=== PATIENT | male | born 1960 | race Caucasian/White ===

== ENCOUNTER 2020-03-01 11:01 | Outpatient (CLI) | payer OTHER, SELFPAY ==
--- NOTE | 2020-03-01 11:15 | XR_ITS ---
WS: [id number] LUMBAR SPINE: 3 VIEWS TECHNIQUE: AP, lateral and L5-S1 spot. HISTORY: Disability DETERMINATION COMPARISON: No similar studies. Very slight straightening of the normal lumbar lordosis. 2 mm retrolisthesis of L3. Moderate disc spa ce narrowing at L3-4 with moderate size osteophytes extending anterior. No fractures. Mild facet join t arthritis at L4-5 and L5-S1. There is very slight LEFT convex curvature of the lumbar spine. Mild narrowing of the SI joints bilaterally. Prior cholecystectomy. A few scattered calcifications in the aorta. XR/XR lumbar spine 2-3V* [id number] IMPRESSION: 1. Moderate degenerative disc disease most significant at L3-4. Otherwise mult ilevel mild to moderate spondylosis. 2. Mild LEFT convex curvature lower lumbar spine.
--- NOTE | 2020-03-01 11:15 | XR_ITS ---
WS: [id number] CERVICAL SPINE 3 VIEWS HISTORY: DISABILITY DETERMINATION COMPARISON: None available. Mild straightening of the normal cervical lordosis. Moderate degenerative disc space narrowing and en dplate osteophytes at C5-6. Small to moderate anterior osteophytes. No fractures. Lateral masses of C 1 and C2 are aligned. Disc spaces are slightly narrowed throughout the cervical spine. Soft tissues are normal. XR/XR cervical spine 3V* [id number] IMPRESSION: Mild to moderate multilevel cervical spondylosis. Most significant at C5-6.
== END 2020-03-01 11:02 | disposition home or self-care (01) ==
LOC: RAD 11:10
PROVIDERS: PCP Internal Medicine; Visit Provider Dermatology
DX: Z02.71 Encounter for disability determination (principal); M51.36 Other intervertebral disc degeneration, lumbar region; M47.816 Spondylosis without myelopathy or radiculopathy, lumbar region; M47.812 Spondylosis without myelopathy or radiculopathy, cervical region
CPT/HCPCS: 72040; 72100

== ENCOUNTER 2020-06-23 15:30 | Outpatient (CLI) | payer MEDICAID, SELFPAY ==
--- NOTE | 2020-06-23 15:32 | CT_ITS ---
WS: [id number] CT of the lumbar spine, additional two-dimensional coronal and sagittal imaging was obtained. 020 Clinical Data: BACK PAIN WITH RADICULOPATHY Comparison: MRI lumbar spine, 08/07/2015. DLP: 2000.[address] scans at [facility] use at least one of these dose optimization techniques: automat ed exposure control; mA and/or kV adjustment per patient size (includes targeted exams where dose is matched to clinical indication); or iterative reconstruction. Findings: Degenerative disc disease is present at T12-L1, L1-L2, L2-L3 and L3-L4. There is anterior o steoarthritic spurring at all these levels. No compression fractures are seen. The transverse process es and SI joints are not remarkable. There is a minimal levoscoliosis of the lower lumbar spine. T12-L1: No canal stenosis is present but there is facet joint arthritis. L1-L2: There is a minimal central disc bulge with facet joint arthritis causing canal and foraminal s tenosis. L2-L3: There is a central disc bulge with facet joint arthritis causing canal and foraminal stenosis. L3-L4: There is central disc bulge with facet joint arthritis causing canal and foraminal stenosis. L4-L5: There is a central disc bulge with facet joint arthritis causing canal and foraminal stenosis. L5-S1: There is no disc bulge or central canal stenosis but there is facet joint arthritis causing fo raminal stenosis. CT/CT lumbar spine wo con* [id number] Impression: 1. Multilevel degenerative disc disease and osteoarthritis. 2. Multilevel disc bulging and facet joint arthritis causing canal and foramina l stenosis.
== END 2020-06-23 15:31 | disposition home or self-care (01) ==
PROVIDERS: PCP Family Medicine; Visit Provider Family Medicine
DX: M54.16 Radiculopathy, lumbar region (principal); M51.36 Other intervertebral disc degeneration, lumbar region; M47.816 Spondylosis without myelopathy or radiculopathy, lumbar region; M51.26 Other intervertebral disc displacement, lumbar region; M48.061 Spinal stenosis, lumbar region without neurogenic claudication
CPT/HCPCS: 72131

== ENCOUNTER 2020-12-21 14:21 | Outpatient (CLI) | payer MEDICAID, SELFPAY | END 2020-12-21 14:22 | disposition home or self-care (01) | LOC: WOUND 14:21 | PROVIDERS: PCP Family Medicine; Visit Provider Thoracic Surgery (Cardiothoracic Vascular Surgery) | DX: E11.621 Type 2 diabetes mellitus with foot ulcer (principal); L97.522 Non-pressure chronic ulcer of other part of left foot with fat layer exposed | CPT/HCPCS: 11042; 87070; 87077; 87176; 87186; 87205; G0463 ==

== ENCOUNTER 2020-12-28 15:27 | Outpatient (CLI) | payer MEDICAID, SELFPAY | END 2020-12-28 15:28 | disposition home or self-care (01) | LOC: WOUND 15:30 | PROVIDERS: PCP Family Medicine; Visit Provider Thoracic Surgery (Cardiothoracic Vascular Surgery) | DX: E11.621 Type 2 diabetes mellitus with foot ulcer (principal); L97.522 Non-pressure chronic ulcer of other part of left foot with fat layer exposed | CPT/HCPCS: 11042 ==

== ENCOUNTER 2021-01-15 15:35 | Outpatient (CLI) | payer MEDICAID, SELFPAY | END 2021-01-15 15:36 | disposition home or self-care (01) | LOC: WOUND 15:35 | PROVIDERS: PCP Family Medicine; Visit Provider Thoracic Surgery (Cardiothoracic Vascular Surgery) | DX: E11.621 Type 2 diabetes mellitus with foot ulcer (principal); L97.522 Non-pressure chronic ulcer of other part of left foot with fat layer exposed | CPT/HCPCS: 11042 ==

== ENCOUNTER 2021-01-22 14:53 | Outpatient (CLI) | payer MEDICAID, SELFPAY | END 2021-01-22 14:54 | disposition home or self-care (01) | LOC: WOUND 14:53 | PROVIDERS: PCP Family Medicine; Visit Provider Thoracic Surgery (Cardiothoracic Vascular Surgery) | DX: E11.621 Type 2 diabetes mellitus with foot ulcer (principal); L97.522 Non-pressure chronic ulcer of other part of left foot with fat layer exposed | CPT/HCPCS: 11042 ==

== ENCOUNTER 2021-02-05 14:53 | Outpatient (CLI) | payer MEDICAID, SELFPAY | END 2021-02-05 14:54 | disposition home or self-care (01) | LOC: WOUND 14:54 | PROVIDERS: PCP Family Medicine; Visit Provider Nurse Practitioner Family | DX: E11.621 Type 2 diabetes mellitus with foot ulcer (principal); L97.522 Non-pressure chronic ulcer of other part of left foot with fat layer exposed | CPT/HCPCS: 11042 ==

== ENCOUNTER 2021-02-19 10:23 | Outpatient (CLI) | payer MEDICAID, SELFPAY | END 2021-02-19 10:24 | disposition home or self-care (01) | LOC: WOUND 10:24 | PROVIDERS: PCP Family Medicine; Visit Provider Thoracic Surgery (Cardiothoracic Vascular Surgery) | DX: E11.621 Type 2 diabetes mellitus with foot ulcer (principal); L97.522 Non-pressure chronic ulcer of other part of left foot with fat layer exposed | CPT/HCPCS: 11042 ==

== ENCOUNTER 2021-02-26 14:07 | Outpatient (CLI) | payer MEDICAID, SELFPAY | END 2021-02-26 14:08 | disposition home or self-care (01) | LOC: WOUND 14:07 | PROVIDERS: PCP Family Medicine; Visit Provider Thoracic Surgery (Cardiothoracic Vascular Surgery) | DX: E11.621 Type 2 diabetes mellitus with foot ulcer (principal); L97.522 Non-pressure chronic ulcer of other part of left foot with fat layer exposed | CPT/HCPCS: 11042 ==

== ENCOUNTER 2021-02-26 14:37 | Outpatient (CLI) | payer MEDICAID, SELFPAY ==
--- NOTE | 2021-02-26 15:01 | XR_ITS ---
WS: [id number] FOOT LEFT TECHNIQUE: 3 views of the left foot CLINICAL INFORMATION: TYPE 2 DM WITH FOOT ULCER COMPARISON: None. FINDINGS: Diffuse soft tissue edema. Osteopenia. Dorsal calcaneal spurring. Pes planus. Soft tissue edema lower leg and hindfoot. Soft tissue edema worse involving the dorsal midfoot. No evidence of bony destruct ion to indicate osteomyelitis. Mild degenerative arthritis. XR/XR foot LT min 3V* [id number] IMPRESSION: 1. Diffuse soft tissue edema worse involving the dorsal midfoot. 2. Demineralization. No evidence of bony destruction to indicate osteomyelitis . 3. No acute fractures. 4. Mild degenerative arthritis. 5. Dorsal calcaneal spurring.
== END 2021-02-26 14:38 | disposition home or self-care (01) ==
LOC: WPI 14:54
PROVIDERS: PCP Family Medicine; Visit Provider Thoracic Surgery (Cardiothoracic Vascular Surgery)
DX: E11.621 Type 2 diabetes mellitus with foot ulcer (principal); R60.0 Localized edema; M81.0 Age-related osteoporosis without current pathological fracture; M19.072 Primary osteoarthritis, left ankle and foot; M77.32 Calcaneal spur, left foot
CPT/HCPCS: 73630

== ENCOUNTER 2021-02-27 15:02 | Inpatient (IN) | payer MEDICAID, SELFPAY ==
[2021-02-27] VITALS (9 sets, daily range): BP systolic 102–187; BP diastolic 59–93; PULSE 96–125; RESP 15–24; TEMP 37.7; O2SAT 93–97; BMI 39.9
--- NOTE | 2021-02-27 15:53 | XRR_ITS ---
PROCEDURE INFORMATION: Exam: XR Chest Exam date and time: 02/27/2021 3:53 PM Age: 60 years old Clinical indication: Shortness of breath and other: Reduced breath sounds; Patient HX: Lle pain/swelling, SOB, weakness x1 day TECHNIQUE: Imaging protocol: XR of the chest. Views: 1 view. COMPARISON: CR XR cervical spine 3V* [id number] 03/01/2020 11:27 AM FINDINGS: Lungs: Pulmonary vascular congestion and cardiomegaly consistent with mild congestive heart failure. Pleural spaces: Unremarkable. No pleural effusion. No pneumothorax. Heart/Mediastinum: See Lungs finding. Bones/joints: Unremarkable. XR/XR chest 1V portable [id number] IMPRESSION: Pulmonary vascular congestion and cardiomegaly consistent with mild congestive heart failure.
--- NOTE | 2021-02-27 15:54 | ECG_ITS ---
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 Measurements Intervals [place] Rate: 118 P: 18 [place]: 92 QRS: -35 QRSD: 101 T: 71 QT: 349 QTc: 491 Interpretive Statements SINUS TACHYCARDIA WITH SHORT [place] INTERVAL MARKED LEFT AXIS DEVIATION [QRS AXIS < -30] PATTERN CONSISTENT WITH PULMONARY DISEASE MINIMAL ST DEPRESSION [0.025+ mV ST DEPRESSION] No previous ECG available for comparison Electronically Signed On 02-27-2021 16:35:39 CDT by Corinna Castro M.D. [id number]
--- NOTE | 2021-02-27 15:58 | USCV_ITS ---
Mark Katz Age: 60 Gender: M : 1960 Exam Date: 02/27/2021 16:25 Ordering Phys: Bala Alan MD Technologist: ROSENDO [place] [facility] [place]: edema and pain PROCEDURES: Venous duplex imaging was performed in bilateral lower extremities. The following venous structures were evaluated: common femoral vein, profunda vein, proximal portion of the greater saphenous vein, superficial femoral vein, and the popliteal vein. Serial compression, augmentation maneuvers, and spectral Doppler flow evaluation were performed. FINDINGS: Very limited study. Patient is bandaged from the knee down on the right lower extremity. The left leg was unable to be completed due to patient pain. No thrombus visualized today in the veins imaged. No right DVT. CONCLUSIONS Limited evaluation of the lower extremity due to pain and bandages. No DVT on the right. Limited to CFV, profunda and proximal SFV on the left with no DVT. Dr. Camryn Lemus DO (Electronically Signed) Final Date: 27 February 2021 16:54 S
[2021-02-27] MEDS: albuterol 8 gm MDI 2 PUFF INHALATION (16:16)
[2021-02-27 16:25] LABS: Basophils # 0.1 10^3/uL (0.0-0.1); Basophils % 0.3 %; Eosinophils # 0.1 10^3/uL (0.0-0.8); Eosinophils % 0.3 %; Hemoglobin 14.8 g/dL (11.7-16.6); Lymphocytes # 0.7 10^3/uL (0.8-4.8); Lymphocytes % 2.8 %; Mean Corpuscular HGB Conc 31.5 g/dL (30.0-36.0); Mean Corpuscular Hemoglobin 30.6 pg (28.0-34.0); Mean Corpuscular Volume 97.1 fL (80-94); Mean Platelet Volume 11.8 fL (7.4-10.4); Monocytes # 1.2 10^3/uL (0.2-0.9); Monocytes % 4.7 %; Neutrophils # 23.57 10^3/uL (1.8-7.7); Neutrophils % 90.9 %; Nucleated Red Blood Cells % 0 %; Platelet Count 160 10^3/cmm (130-400); Red Blood Count 4.84 10^6/uL (4.1-5.3); Red Cell Distribution Width 12.3 % (12.1-15.1); White Blood Count 25.9 10^3/uL (4.0-10.0)
[2021-02-27 16:32] LABS: ABG PCO2 37.1 mmHg (35-45); ABG PH Result 7.44 (7.35-7.45); Arterial Blood Gas Hematocrit 48.8 % (42-52); Base Excess ABG 1.3 mmol/L (-2.0-2.0); Blood Gas Allen Test Pos; Blood Gas Operator Identificat GD; Blood Gas Sample Site Radial, left; Blood Gas Sample Type Arterial; HCO3 ABG 25.2 mmol/L (22-26); HGB O2 Sat 89.9 % (95-100); Methemoglobin 0.8 % (0.4-1.5); PO2 ABG 64.6 mmHg (80.0-100.0); Total Hemoglobin 15.9 g/dL (14-18)
[2021-02-27] MEDS: acetaminophen 325 mg Tablet 650 MG PO (16:54)
[2021-02-27] MEDS: morphine 4 mg/mL SDV 1 mL 2 MG IVP (16:54)
[2021-02-27] MEDS: sodium chloride 0.9% 1,000 ML 999 ML IV (16:55)
[2021-02-27 16:58] LABS: Lactic Sepsis W/Reflex 1.2 mmol/L (0.5-2.2)
[2021-02-27 17:10] LABS: Glucose Point of Care 195 mg/dL (70-110)
--- NOTE | 2021-02-27 17:37 | CTR_ITS ---
PROCEDURE INFORMATION: Exam: CT Head Without Contrast Exam date and time: 02/27/2021 5:37 PM Age: 60 years old Clinical indication: Altered mental status/memory loss TECHNIQUE: Imaging protocol: Computed tomography of the head without contrast. Radiation optimization: All CT scans at this facility use at least one of these dose optimization techniques: automated exposure control; mA and/or kV adjustment per patient size (includes targeted exams where dose is matched to clinical indication); or iterative reconstruction. COMPARISON: CR XR cervical spine 3V* [id number] 03/01/2020 11:27 AM RADIATION DOSE METRICS: Total DLP (mGy-cm): 982.04 FINDINGS: Brain: Mild diffuse white matter disease likely reflecting chronic microvascular ischemic changes. Punctate bilateral basal ganglia benign calcifications. Cerebral ventricles: No ventriculomegaly. Paranasal sinuses: Visualized sinuses are unremarkable. No fluid levels. Mastoid air cells: Visualized mastoid air cells are well aerated. Bones/joints: Unremarkable. No acute fracture. Soft tissues: Unremarkable. CT/CT head wo con* [id number] IMPRESSION: Negative for intracranial hemorrhage or mass effect. Radiation Dose CTDIVOL = (mGy): DLP = 982.04 (mGy-cm)
--- NOTE | 2021-02-27 17:37 | CTR_ITS ---
PROCEDURE INFORMATION: Exam: CTA Chest With Contrast Exam date and time: 02/27/2021 5:37 PM Age: 60 years old Clinical indication: Nausea; Abdominal pain; Generalized; Shortness of breath; Prior surgery; Surgery type: Gb; Additional info: Dyspnea. Pe? , Abd pain TECHNIQUE: Imaging protocol: Computed tomographic angiography of the chest with contrast. 3D rendering (Not supervised by radiologist): MIP and/or 3D reconstructed images were created by the technologist. Radiation optimization: All CT scans at this facility use at least one of these dose optimization techniques: automated exposure control; mA and/or kV adjustment per patient size (includes targeted exams where dose is matched to clinical indication); or iterative reconstruction. Contrast material: OMNI 350; Contrast volume: 95 ml; Contrast route: INTRAVENOUS (IV); COMPARISON: CR XR chest 1V portable [id number] 02/27/2021 3:56 PM RADIATION DOSE METRICS: Total DLP (mGy-cm): 2237.51 FINDINGS: Pulmonary arteries: Normal. No pulmonary emboli. Aorta: Unremarkable. No aortic aneurysm. No aortic dissection. Lungs: Unremarkable. No consolidation. No masses. Pleural spaces: Unremarkable. No pneumothorax. No pleural effusion. Heart: Coronary artery atherosclerotic calcifications. Lymph nodes: Unremarkable. No enlarged lymph nodes. Bones/joints: Unremarkable. No acute fracture. Soft tissues: Unremarkable. IMPRESSION: 1. Negative for pulmonary embolus or airspace infiltrate 2. Coronary artery atherosclerotic calcifications. PROCEDURE INFORMATION: Exam: CT Abdomen And Pelvis With Contrast Exam date and time: 02/27/2021 5:37 PM Age: 60 years old Clinical indication: Nausea; Abdominal pain; Generalized; Shortness of breath; Prior surgery; Surgery type: Gb; Additional info: Dyspnea. Pe? , Abd pain TECHNIQUE: Imaging protocol: Computed tomography of the abdomen and pelvis with contrast. Radiation optimization: All CT scans at this facility use at least one of these dose optimization techniques: automated exposure control; mA and/or kV adjustment per patient size (includes targeted exams where dose is matched to clinical indication); or iterative reconstruction. Contrast material: OMNI 350; Contrast volume: 95 ml; Contrast route: INTRAVENOUS (IV); COMPARISON: CR XR chest 1V portable [id number] 02/27/2021 3:56 PM RADIATION DOSE METRICS: Total DLP (mGy-cm): 2237.51 FINDINGS: Liver: Normal. No mass. Gallbladder and bile ducts: Cholecystectomy. Pancreas: Normal. No ductal dilation. Spleen: Normal. No splenomegaly. Adrenal glands: Normal. No mass. Kidneys and ureters: Left kidney cysts, negative for follow-up advised. Stomach and bowel: Constipation. Appendix: No evidence of appendicitis. Intraperitoneal space: Unremarkable. No free air. No significant fluid collection. Vasculature: Unremarkable. No abdominal aortic aneurysm. Lymph nodes: Unremarkable. No enlarged lymph nodes. Urinary bladder: Medrano catheter in the urinary bladder. Reproductive: Unremarkable as visualized. Bones/joints: Unremarkable. No acute fracture. Soft tissues: Subcutaneous edema over the abdomen and pelvis. CT/CT angio chest w abd pel w con IMPRESSION: 1. Negative for acute inflammatory process in the abdomen or pelvis 2. Cholecystectomy. 3. Left kidney cysts, negative for follow-up advised. 4. Subcutaneous edema over the abdomen and pelvis. 5. Medrano catheter in the urinary bladder. 6. Constipation. COMMENTS: Consistent with the [employer]'s Incidental Findings Committee white paper (J Am Johanny Radiol 2018): Any incidental renal lesion less than 1 cm or classified as too small to characterize, or any incidental cystic renal lesion characterized as simple-appearing, is likely benign. No follow-up imaging is recommended for these lesions per consensus recommendations based on imaging criteria. Radiation Dose CTDIVOL = (mGy): DLP = 2237.51~2237.51 (mGy-cm)
[2021-02-27] MEDS: vancomycin 1,500 MG/300 ML PIGGYBACK 200 MG IV (17:42)
[2021-02-27 17:43] LABS: D Dimer 1.52 ug/mIFEU (0-0.59)
--- NOTE | 2021-02-27 17:54 | ECG_ITS ---
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 Measurements Intervals [place] Rate: 110 P: 65 [place]: 140 QRS: -34 QRSD: 100 T: 74 QT: 362 QTc: 490 Interpretive Statements SINUS TACHYCARDIA MARKED LEFT AXIS DEVIATION [QRS AXIS < -30] PATTERN CONSISTENT WITH PULMONARY DISEASE NONSPECIFIC ST & T-WAVE ABNORMALITY Compared to ECG 02/27/2021 16:09:09 T-wave abnormality now present Short CO interval no longer present ST (T wave) deviation no longer present Electronically Signed On 02-28-2021 18:37:35 CDT by Deion Chin M.D. [id number]
[2021-02-27 17:59] LABS: SARS Covid-2 Antigen Negative (Negative)
[2021-02-27] MEDS: FUROsemide 10 mg/mL SDV 4mL 40 MG IVP (18:30)
[2021-02-27 18:32] LABS: Alanine Aminotransferase 23 U/L (0-41); Albumin Level 2.4 g/dL (3.5-5.2); Alkaline Phosphatase 173 IU/L (40-130); Anion Gap 14.8 (5-19); Aspartate Amino Transferase 23 U/L (0-40); Blood Urea Nitrogen 10 mg/dL (8-23); Calcium 7.6 mg/dL (8.5-10.5); Carbon Dioxide 22 mmol/L (22-29); Chloride 104 mmol/L (98-107); Creatine Phosphokinase 196 U/L (39-308); Globulin 3.3 g/dL (1.3-4.6); Glomerular Filtration Rate 75.7 mL/min (90-130); Glucose 215 mg/dL (65-115); Osmolality Calculated 290 mOsm/kg (285-295); Potassium 3.8 mmol/L (3.5-5.1); Sodium 137 mmol/L (136-145); Thyroid Stimulating Hormone 0.83 uIU/mL (0.27-4.20); Total Bilirubin 0.6 mg/dL (0.15-1.2); Total Protein 5.7 g/dL (6.6-8.7)
[2021-02-27 18:52] LABS: Troponin(5th) Baseline 82 ng/L (0-15)
[2021-02-27 18:59] LABS: NT Pro B Type Natriuretic Pept 190 pg/mL (0-125)
[2021-02-27] MEDS: piperacillin-tazobactam 3.375 GM in sodium chloride 0.9% (plus) 100 ML IV (19:30)
--- NOTE | 2021-02-27 19:31 | CTR_ITS ---
PROCEDURE INFORMATION: Exam: CT Right Lower Extremity With Contrast Exam date and time: 02/27/2021 7:31 PM Age: 60 years old Clinical indication: Pain; Lower leg and thigh; Bilateral; Additional info: Groin and thigh pain TECHNIQUE: Imaging protocol: CT of the Right lower extremity with intravenous contrast was performed. Radiation optimization: All CT scans at this facility use at least one of these dose optimization techniques: automated exposure control; mA and/or kV adjustment per patient size (includes targeted exams where dose is matched to clinical indication); or iterative reconstruction. Contrast material: OMNI 300; Contrast volume: 95 ml; Contrast route: INTRAVENOUS (IV); COMPARISON: CT angio chest w abd pel w con 02/27/2021 8:05 PM RADIATION DOSE METRICS: Total DLP (mGy-cm): 2236.01 FINDINGS: Tubes, catheters and devices: Medrano catheter within bladder lumen. Bones/joints: Symmetric moderate severity hip joint osteoarthritis changes. Symmetric moderate severity bilateral knee joint osteoarthritis changes. No lytic bone lesions. No extremity fractures. Soft tissues: Diffuse subcutaneous soft tissue edema changes throughout both legs. Edema is more extensive in left leg than right leg. Intramuscular soft tissue planes are unremarkable. There is diffuse skin thickening of the medial thigh areas. No peripherally enhancing loculated drainable soft tissue fluid collection identified. Vasculature: Lower extremity vascular structures are patent and unremarkable with no significant finding. Lymph nodes: Left groin lymphadenopathy is present. A prominent enlarged lymph node is seen with slightly indistinct margins with overall inflammatory appearance. The node measures about 1.8 cm short axis by 3.5 cm long axis. Urinary bladder: Bladder decompressed. Thick-walled bladder appearance. Reproductive: Small volume scrotal hydroceles. CT/CT angio [facility] [id number] IMPRESSION: 1. Substantial diffuse subcutaneous soft tissue edema changes throughout both legs. 2. Nonspecific reactive left inguinal lymphadenopathy. Radiation Dose CTDIVOL = (mGy): DLP = 2236.01 (mGy-cm)
[2021-02-27 19:49] LABS: Add Urine Microscopic? YES; Bilirubin Urine Neg (Negative); Blood Urine 3+ (Negative); Glucose Urine UA 2+ (Normal); Ketones Urine Negative (Negative); Leukocyte Esterase Urine Negative (Negative); Nitrate Urine Negative (Negative); Protein Urine 3+ (Negative); Specific Gravity, Urine 1.005 (1.005-1.030); Urine Appearance Clear (CLEAR); Urine Color Yellow (Yellow); Urobilinogen Urine 1 mg/dL (Negative); pH Urine 7 (5-7)
[2021-02-27 19:50] LABS: Add Urine Culture? Yes; Bacteria Urine 2+ /hpf; Squamous Epithelial Cell Urine 0-4 /hpf (0-5); WBC Urine 0-4 /hpf (0-5)
[2021-02-27] MEDS: iohexol 350 mg/mL 100 mL Btl IV (20:06)
[2021-02-27] MEDS: iohexol 300 mg/mL 100 mL Btl IV (20:09)
[2021-02-27 20:27] LABS: Troponin 5 2HR 79.14 ng/L (0-15)
[2021-02-27 20:29] LABS: Troponin 5 2HR Delta -2.86 ABS# (0-10)
--- NOTE | 2021-02-27 21:05 | PM.HP ---
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 Patients at bedside provided history. Patient was confused at the time of my eval. Per she related his confusion to opiod withdrawal as he had ran out of his oxycodone 1 day prior. During this time he started to complain of left knee pain. Denied any fall or recent trauma. At baseline he is able to walk short distances with assist however he was not able to do so. He does have a chronic diabetic foot ulcer on left foot which was evaluvated by wound care on 02/26. A left foot x-ray was done which showed diffuse soft tissue edema worse involving the dorsal midfoot without any evidence of acute fracture or bony destruction indicate osteomyelitis. He was not started on antibiotics. Wound has been draining yellow pus like discharge however very minimal per . Denied fever, or chills. Noted nausea however no emesis. Denied chest pain however noted mild respiratory distress from baseline. Does not wear oxygen at home. Noted increasing lower extremity edema however states this has been progressively increasing for over 2 years. Laboratory workup upon arrival showed a WBC of 25.9, hemoglobin of 14.8, hematocrit 47.0 and a platelet count of 160. D-dimer was elevated at 1.52. Arterial blood gases showed a pH of 7.44, pCO2 of 37.1, PO2 of 64.6 and a bicarb of 25.2. Sodium 137, potassium 3.8, chloride 104, bicarb 22, BUN 10 and creatinine of 1.0. Lactic acid of 1.2. Troponin T baseline of 82, 79 at 120 minutes, proBNP of 190. Urinalysis showed 3+ blood, negative nitrites or leukocyte esterase. COVID-19 antigen was negative. PCR was sent however pending. Chest x-ray showed pulmonary vascular congestion and cardiomegaly consistent with mild congestive heart failure, right lower extremity venous duplex was attempted however limited due to lower extremity pain. CT chest abdomen pelvis noted coronary artery atherosclerotic calcifications without any evidence of pulmonary embolism, infiltrates or consolidation. Abdominal portion showed constipation without any additional abnormality. Head CT did not show any evidence of acute intracranial abnormality.Left lower extremity CTA showed edmea as well as reactive ingunal lymphdenopathy. Initial vitals showed a temp of 100.0, HR of 114, RR 22, and BP of 167/93. O2 sat of 96% on RA. In ER patient was given 1L NS bolus x 2, Lasix 40 mg IV x1, Zosyn 3.375g IV x1, Vancomycin 1500 mg IV x 1, Morphine 2 mg IV x 1. Review of Systems General: Reports: ROS unobtainable due to medical condition and ROS unobtainable due to mental status Medications/Allergies Home Medications Medication Instructions Recorded Confirmed Last Taken Type dextroamphetamine-amphetamine 10 mg PO BID 02/27/21 02/27/21 02/27/21 History insulin NPH and regular human See Rx Instructions .ROUTE .COMPLEX 02/27/21 02/27/21 02/27/21 History insulin regular human See Rx Instructions .ROUTE .COMPLEX 02/27/21 02/27/21 02/27/21 History omega 2-ows-mja-fish oil [Fish Oil] 1 cap PO DAILY 02/27/21 02/27/21 02/27/21 History oxycodone 30 - 60 mg PO Q4H PRN 02/27/21 02/27/21 02/27/21 History Allergies Allergy/AdvReac Type Severity Reaction Status Date / Time Compazine Allergy Unknown Uncoded 12/29/20 13:52 PFSH Acute PFSH: Medical History (Updated 02/28/21 @ 05:52 by Simon Doe MD) Anasarca Ankylosing spondylitis Anxiety and depression Chronic heart failure with normal ejection fraction Chronic ulcer of left foot due to diabetes mellitus COPD (chronic obstructive pulmonary disease) Diabetes mellitus Hypertension No pertinent family history Noncompliance with CPAP treatment Obstructive sleep apnea Opioid dependence Tobacco abuse Surgical History (Updated 02/27/21 @ 23:45 by Simon Doe MD) No pertinent past surgical history Social History (Updated 02/27/21 @ 23:45 by Simon Doe MD) Smoking and tobacco status: current every day smoker cigarettes Packs smoked per day: 2 Alcohol intake: never Substance/Drug Use: never Vitals/I&O/Wt Last Vital Signs Temp 100 F H 02/27/21 15:10 Pulse 96 02/27/21 19:30 Resp 22 H 02/27/21 19:30 BP 152/59 02/27/21 19:30 Pulse Ox 95 02/27/21 19:30 02/27/21 02/27/21 02/27/21 06:59 14:59 22:59 Intake Total 1132.5 / 1132.5 Balance 1132.5 / 1132.5 Weight last 48 hrs Weight 115.666 kg Physical Exam Narrative: EXAM NARRATIVE: General : Chronically ill appearing, confused, HEENT: Grossly unremarkable CVS; RRR no murmurs Chest : Decreased at bases, fine crackles Abd - Ascietes, non-tender Ext : Bilateral LE edema 4+, RLE elise wrap, Left foot ulcer no surrounding erythema Urinary Catheter Management^: Medrano: Cath Placed During This Visit: yes Urinary Catheter Date of Insertion: 02/27/21 Urinary Catheter Time of Insertion: 18:48 Data : 02/28/21 04:30 02/28/21 04:30 Micro: Microbiology 02/27/21 16:47 Blood Culture - Preliminary Blood SPECIMEN COLLECTED 02/27/21 16:13 Blood Culture - Preliminary Blood SPECIMEN COLLECTED A&P Assessment and plan (1) Sepsis due to undetermined organism: Temperature of a 100.0, heart rate 114, WBC 23 Source unclear, possibly due to infected diabetic foot ulcer versus UTI Continue vancomycin and Zosyn pharmacy to dose Follow-up on blood cultures x2 Procalcitonin a.m. Deescalate antibiotics based on culture and clinical course Repeat CBC in a.m. Status: Acute (2) Altered mental state: Possibly dueTo opioid in combination with Infectious Nursing bedside swallow Aspiration and fall precautions Status: Acute (3) Acute on chronic heart failure with normal ejection fraction: Echocardiogram last noted in 2006 EF preserved with left atrial dilation Repeat echocardiogram now Status post Lasix 40 mg IV x1 by ER Consider additional Lasix However hold due to poor p.o. intake and risk of renal dysfunction Medrano catheter placed Status: Acute (4) COPD (chronic obstructive pulmonary disease): Bronchodilator therapy Supplemental oxygen as needed Status: Acute (5) Hypertension: Verify home meds Status: Acute (6) Ankylosing spondylitis: HoldingNarcotics due to change in mental status Cautiously reintroduced at lower dose Likely contributing to his AMS. Physical therapy consultation Status: Acute (7) Diabetes mellitus: Sliding scale insulin Status: Acute (8) Chronic ulcer of left foot due to diabetes mellitus: May consider Consultation with wound care Culture wound Consider KAM Pressure offloading Status: Acute (9) Tobacco abuse: Two pack per day smoker Nicotine p.r.n. Status: Acute Attestations Medical Necessity Statement*: Anticipate over 2 midnights stay in hospital for evaluation and treatment of sepsis, change in mental status, or extremity pain. Time Spent in Patient Care: Greater than 35 minutes (>than 50% of time spent in counselling and/or direct pt care on unit). Coding Level of Care Code Acute Site Inspector for Koby Amezcua Diagnoses Sepsis due to undetermined organism A41.9 Altered mental state R41.82 Acute on chronic heart failure with normal ejection fraction I50.33 COPD (chronic obstructive pulmonary disease) J44.9 Hypertension I10 Ankylosing spondylitis M45.9 Diabetes mellitus E11.9 Chronic ulcer of left foot due to diabetes mellitus E11.621; L97.529 Tobacco abuse Z72.0
--- NOTE | 2021-02-27 22:31 | ED_ITS ---
HPI - Weakness General: Chief complaint: Weakness Stated complaint: LLE pain Time Seen by Provider: 02/27/21 15:33 History of Present Illness: HPI Narrative: The patient is a 60-year-old male with past medical history diabetes with neuropathy and left foot ulcer who comes to the ER complaining of severe left groin pain and swelling to his legs and arms. He has diffuse anasarca. Chart reveals he has chronic lymphedema which she is supposed to be wrapping and does. He is being followed regularly in the wound care clinic as well for his heel ulcer. He is slightly confused on arrival with pulse 114 temperature 100 and respirations 22 satting in the lower to mid 90s on room air. Blood pressure 167/93. He also suffers from chronic pain and takes oxycodone daily. MD Complaint: generalized weakness Severity: moderate Relieving factors: none Exacerbating factors: movement Associated symptoms: Reports chills, headache(s) and short of breath; Denies chest pain or fever(s) Review of Systems General: Reports: 10 or more systems reviewed and unremarkable except in HPI and below Const: Reports: chills, body aches and fatigue; Denies: fever(s) Eyes: Denies: change in vision, blurry vision or eye redness ENMT: Denies: throat pain, swelling of lips/tongue, ear or mastoid pain or nasal congestion Card: Denies: chest pain, palpitations, irregular heart rhythm, edema, dyspnea on exertion or orthopnea Resp: Reports: dyspnea; Denies: productive cough or non-productive cough GI: Denies: abdominal pain, diarrhea or GI cramping : Denies: flank pain, urinary frequency or urinary urgency Musc: Reports: back pain and extremity pain; Denies: neck pain, joint pain, joint redness, limited range of motion or muscle weakness Skin/Breast: Denies: rash, pruritus, erythema, skin pain or skin tenderness Neuro: Reports: headache(s) Psych: Denies: anxiety or depression Endo: Denies: polyuria All/Imm: Denies: urticaria, throat swelling or tongue swelling Physical Exam Narrative: EXAM NARRATIVE: Patient comes in tachycardic, tachypneic, with elevated temperature at 100. Satting 95 on room air with shallow respirations. Severe tenderness to left groin. Lymphedema to bilateral lower extremities and anasarca to arms and legs and belly. Const: COMMON NORMALS: no acute distress, average body habitus, patient oriented x3, no limitations, healthy appearing, alert and well nourished GEN ERAL APPEARANCE: cooperative, comfortable, well kempt and well developed ORIENTATION/CONSCIOUSNESS: Yes awake, Yes oriented to person, Yes oriented to place and Yes oriented to time HENMT: COMMON NORMALS: normocephalic, external ears normal and Normal external nose present HEAD & SCALP: normal to inspection and normocephalic NOSE: Normal external nose present EXTERNAL EAR: Yes external ears normal MOUTH: Normal oral and palatal mucosa present THROAT: posterior oropharynx normal Eye: COMMON NORMALS: Equal, round and reactive pupils present and EOMs intact bilaterally GENERAL EYE: appearance normal, both eyes and all related structures PUPIL: Yes Equal, round and reactive pupils present Neck/C-Spine: COMMON NORMALS: full ROM, no lymphadenopathy, no meningeal signs and no JVD GENERAL: Yes normal visual inspection Lymph: LYMPHATIC: no lymphadenopathy noted Chest: COMMONS NORMALS: normal inspection of the chest and normal palpation of entire chest wall Resp: COMMON NORMALS: normal respiratory effort, No retractions, No use of accessory muscles and percussion normal EFFORT & INSPECTION: Yes able to speak in complete sentences and Yes tachypneic AUSCULTATION: diminished lung sounds PERCUSSION: percussion normal OTHER: Shallow fast respirations. No significant abnormal sounds but breath sounds are diminished bilaterally. Cardio: COMMON NORMALS: no JVD, regular rhythm, S1 normal heart sound present, S2 normal heart sound present and Peripheral pulses 2+ throughout RATE: tachycardic RHYTHM: regular rhythm HEART SOUNDS: S1 normal heart sound present and S2 normal heart sound present PERIPHERAL PULSES: Peripheral pulses 2+ throughout GI: COMMON NORMALS: Normal to inspection, nondistended, normoactive bowel sounds present, Soft to palpation, non-tender and no masses INSPECTION: Yes normal to inspection PALPATION: Yes Soft to palpation : COMMON NORMALS: Yes no CVA tenderness BLADDER/KIDNEY EXAM: Yes no CVA tenderness Back/Pelvis: COMMON NORMALS: no CVA tenderness, thoracic and lumbar spine normal to inspection, no thoracic nor lumbar tenderness and thoraco-lumbar ROM normal Extremity: COMMON NORMALS: normal to inspection, full ROM, capillary refill normal, no joint enlargement and no pedal edema NARRATIVE EXTREMITY EXAM: Patient has chronic lymphedema but appears to have acute on chronic edema to bilateral lower extremities. He has an ulcer on his left heel that wound care has packed. He has appropriate amount of tenderness there. He has significant tenderness to his left groin out of proportion to expected complaint there. Unclear cause of it GENERAL: Yes normal exam except as noted Neuro: COMMON NORMALS: patient oriented x3, CN's II-XII intact bilaterally, moves all extremities, no focal motor deficits, no sensory deficits noted and gait normal SENSORIUM/ORIENTATION: Yes alert, Yes oriented to person, Yes oriented to place and Yes oriented to time MENINGEAL SIGNS: Yes no meningeal signs Psych: COMMON NORMALS: mental status grossly normal, Normal thought process present, cooperative, normal affect and speech normal APPEARANCE: Yes well k empt ATTITUDE: Yes calm SPEECH: Yes normal speech THOUGHT PROCESS: Norm al thought process present Skin: COMMON NORMALS: no rashes or lesions noted GENERAL SKIN EXAM: no rashes or lesions noted Course Vital Signs: Vital signs: Vital Signs Temperature 100 F H 02/27/21 15:10 Pulse Rate 96 02/27/21 19:30 Respiratory Rate 22 H 02/27/21 19:30 Blood Pressure 152/59 02/27/21 19:30 Pulse Oximetry 95 02/27/21 19:30 MDM - Weakness MDM Narrative: Medical decision making narrative: The patient comes to the ER appearing significantly ill, tachycardic, elevated temperature 100 degrees, tachypneic at 22/min with shallow respirations. Also his white blood cell count came back at 25. His complaints are nearly head to toe including headache, shortness of breath, belly cramping, left groin pain, bilateral leg pain and swelling. His worst complaint is the left groin pain. Troponin elevated at 82 baseline and repeat was 79. No ST changes on his EKGs. CTs revealed anasarca and lymphadenopathy of left groin. Possibility exists he has a infection that is unseen from his left heel ulcer that is draining to his left groin causing him severe pain there. He was treated with diuresis because he is fluid overloaded, vancomycin and Zosyn. His condition slightly improved during his time in the ED and he is now resting comfortably. He has produced a large amount of urine. Discussed with Dr. Doe who accepts for admission. Lab Data: Labs: Lab Results 02/27/21 02/27/21 02/27/21 Range/Units 16:13 16:13 16:13 WBC 25.9 H (4.0-10.0) 10^3/ uL RBC 4.84 (4.1-5.3) 10^6/u L Hgb 14.8 (11.7-16.6) g/dL Hct 47.0 (42.0-52.0) % MCV 97.1 H (80-94) fL MCH 30.6 (28.0-34.0) pg MCHC 31.5 (30.0-36.0) g/dL RDW 12.3 (12.1-15.1) % Plt Count 160 (130-400) 10^3/c mm MPV 11.8 H (7.4-10.4) fL Neut % (Auto) 90.9 % Lymph % (Auto) 2.8 % [place] % (Auto) 4.7 % Eos % (Auto) 0.3 % Baso % (Auto) 0.3 % Neut # (Auto) 23.57 H (1.8-7.7) 10^3/u L Lymph # (Auto) 0.7 L (0.8-4.8) 10^3/u L [place] # (Auto) 1.2 H (0.2-0.9) 10^3/u L Eos # (Auto) 0.1 (0.0-0.8) 10^3/u L Baso # (Auto) 0.1 (0.0-0.1) 10^3/u L Nucleated RBC % (a uto) 0 % Nucleated RBCs # 0.0 /100WBC D-Dimer 1.52 H (0-0.59) ug/mIFE U Specimen Type Sample Site ABG pH (7.35-7.45) ABG pCO2 (35-45) mmHg ABG pO2 (80.0-100.0) mmH g ABG HCO3 (22-26) mmol/L ABG Base Excess (-2.0-2.0) mmol/ L Sp Test Hematocrit (42-52) % Hgb O2 Saturation (95-100) % Carboxyhemoglobin (0.4-20.1) %THgb Methemoglobin (0.4-1.5) % Total Hemoglobin (14-18) g/dL O2 Delivery Device Public Health Technician ID Sodium Cancelled Potassium Cancelled Chloride Cancelled Carbon Dioxide Cancelled Anion Gap Cancelled BUN Cancelled Creatinine Cancelled GFR Calculation Cancelled Glucose Cancelled POC Glucose (70-110) mg/dL Calculated Osmolal ity Cancelled Lactic Acid (0.5-2.2) mmol/L Calcium Cancelled Total Bilirubin Cancelled AST Cancelled ALT Cancelled Alkaline Phosphata se Cancelled Creatine Kinase Cancelled Troponin T Baselin e Troponin T 120 Min [place] (0-15) ng/L Delta Troponin T (0-10) ABS# NT-Pro-B Natriuret Pep Cancelled Total Protein Cancelled Albumin Cancelled Globulin Cancelled TSH Cancelled Urine Color (Yellow) Urine Appearance (CLEAR) Urine pH (5-7) Ur Specific Gravit y (1.005-1.030) Urine Protein (Negative) Urine Glucose (UA) (Normal) Urine Ketones (Negative) Urine Blood (Negative) Urine Nitrate (Negative) Urine Bilirubin (Negative) Urine Urobilinogen (Negative) mg/dL Ur Leukocyte Michelle ase (Negative) Urine RBC (0-2) /hpf Urine WBC (0-5) /hpf Ur Squamous Epith Cells (0-5) /hpf Amorphous Sediment Urine Bacteria (NONE) /hpf SARS-CoV-2 Ag (Rap id) (Negative) 02/27/21 02/27/21 02/27/21 Range/Units 16:13 16:13 16:15 WBC (4.0-10.0) 10^3/ uL RBC (4.1-5.3) 10^6/u L Hgb (11.7-16.6) g/dL Hct (42.0-52.0) % MCV (80-94) fL MCH (28.0-34.0) pg MCHC (30.0-36.0) g/dL RDW (12.1-15.1) % Plt Count (130-400) 10^3/c mm MPV (7.4-10.4) fL Neut % (Auto) % Lymph % (Auto) % [place] % (Auto) % Eos % (Auto) % Baso % (Auto) % Neut # (Auto) (1.8-7.7) 10^3/u L Lymph # (Auto) (0.8-4.8) 10^3/u L [place] # (Auto) (0.2-0.9) 10^3/u L Eos # (Auto) (0.0-0.8) 10^3/u L Baso # (Auto) (0.0-0.1) 10^3/u L Nucleated RBC % (a uto) % Nucleated RBCs # /100WBC D-Dimer (0-0.59) ug/mIFE U Specimen Type Arterial Sample Site Radial, left ABG pH 7.44 (7.35-7.45) ABG pCO2 37.1 (35-45) mmHg ABG pO2 64.6 L (80.0-100.0) mmH g ABG HCO3 25.2 (22-26) mmol/L ABG Base Excess 1.3 (-2.0-2.0) mmol/ L Sp Test Pos Hematocrit 48.8 (42-52) % Hgb O2 Saturation 89.9 L (95-100) % Carboxyhemoglobin 3.0 (0.4-20.1) %THgb Methemoglobin 0.8 (0.4-1.5) % Total Hemoglobin 15.9 (14-18) g/dL O2 Delivery Device None Public Health Technician ID Gd Sodium Potassium Chloride Carbon Dioxide Anion Gap BUN Creatinine GFR Calculation Glucose POC Glucose (70-110) mg/dL Calculated Osmolal ity Lactic Acid 1.2 (0.5-2.2) mmol/L Calcium Total Bilirubin AST ALT Alkaline Phosphata se Creatine Kinase Troponin T Baselin e Cancelled Troponin T 120 Min [place] (0-15) ng/L Delta Troponin T (0-10) ABS# NT-Pro-B Natriuret Pep Total Protein Albumin Globulin TSH Urine Color (Yellow) Urine Appearance (CLEAR) Urine pH (5-7) Ur Specific Gravit y (1.005-1.030) Urine Protein (Negative) Urine Glucose (UA) (Normal) Urine Ketones (Negative) Urine Blood (Negative) Urine Nitrate (Negative) Urine Bilirubin (Negative) Urine Urobilinogen (Negative) mg/dL Ur Leukocyte Michelle ase (Negative) Urine RBC (0-2) /hpf Urine WBC (0-5) /hpf Ur Squamous Epith Cells (0-5) /hpf Amorphous Sediment Urine Bacteria (NONE) /hpf SARS-CoV-2 Ag (Rap id) (Negative) 0702/27/21 02/27/21 Range/Units 17:03 17:09 18:00 WBC (4.0-10.0) 10^3/ uL RBC (4.1-5.3) 10^6/u L Hgb (11.7-16.6) g/dL Hct (42.0-52.0) % MCV (80-94) fL MCH (28.0-34.0) pg MCHC (30.0-36.0) g/dL RDW (12.1-15.1) % Plt Count (130-400) 10^3/c mm MPV (7.4-10.4) fL Neut % (Auto) % Lymph % (Auto) % [place] % (Auto) % Eos % (Auto) % Baso % (Auto) % Neut # (Auto) (1.8-7.7) 10^3/u L Lymph # (Auto) (0.8-4.8) 10^3/u L [place] # (Auto) (0.2-0.9) 10^3/u L Eos # (Auto) (0.0-0.8) 10^3/u L Baso # (Auto) (0.0-0.1) 10^3/u L Nucleated RBC % (a uto) % Nucleated RBCs # /100WBC D-Dimer (0-0.59) ug/mIFE U Specimen Type Sample Site ABG pH (7.35-7.45) ABG pCO2 (35-45) mmHg ABG pO2 (80.0-100.0) mmH g ABG HCO3 (22-26) mmol/L ABG Base Excess (-2.0-2.0) mmol/ L Sp Test Hematocrit (42-52) % Hgb O2 Saturation (95-100) % Carboxyhemoglobin (0.4-20.1) %THgb Methemoglobin (0.4-1.5) % Total Hemoglobin (14-18) g/dL O2 Delivery Device Public Health Technician ID Sodium 137 Potassium 3.8 Chloride 104 Carbon Dioxide 22 Anion Gap 14.8 BUN 10 Creatinine 1.0 GFR Calculation 75.7 L Glucose 215 H POC Glucose 195 H (70-110) mg/dL Calculated Osmolal ity 290 Lactic Acid (0.5-2.2) mmol/L Calcium 7.6 L Total Bilirubin 0.6 AST 23 ALT 23 Alkaline Phosphata se 173 H Creatine Kinase 196 Troponin T Baselin e Troponin T 120 Min [place] (0-15) ng/L Delta Troponin T (0-10) ABS# NT-Pro-B Natriuret Pep Total Protein 5.7 L Albumin 2.4 L Globulin 3.3 TSH 0.83 Urine Color (Yellow) Urine Appearance (CLEAR) Urine pH (5-7) Ur Specific Gravit y (1.005-1.030) Urine Protein (Negative) Urine Glucose (UA) (Normal) Urine Ketones (Negative) Urine Blood (Negative) Urine Nitrate (Negative) Urine Bilirubin (Negative) Urine Urobilinogen (Negative) mg/dL Ur Leukocyte Michelle ase (Negative) Urine RBC (0-2) /hpf Urine WBC (0-5) /hpf Ur Squamous Epith Cells (0-5) /hpf Amorphous Sediment Urine Bacteria (NONE) /hpf SARS-CoV-2 Ag (Rap id) Negative (Negative) 02/27/21 02/27/21 02/27/21 Range/Units 18:00 18:00 18:48 WBC (4.0-10.0) 10^3/ uL RBC (4.1-5.3) 10^6/u L Hgb (11.7-16.6) g/dL Hct (42.0-52.0) % MCV (80-94) fL MCH (28.0-34.0) pg MCHC (30.0-36.0) g/dL RDW (12.1-15.1) % Plt Count (130-400) 10^3/c mm MPV (7.4-10.4) fL Neut % (Auto) % Lymph % (Auto) % [place] % (Auto) % Eos % (Auto) % Baso % (Auto) % Neut # (Auto) (1.8-7.7) 10^3/u L Lymph # (Auto) (0.8-4.8) 10^3/u L [place] # (Auto) (0.2-0.9) 10^3/u L Eos # (Auto) (0.0-0.8) 10^3/u L Baso # (Auto) (0.0-0.1) 10^3/u L Nucleated RBC % (a uto) % Nucleated RBCs # /100WBC D-Dimer (0-0.59) ug/mIFE U Specimen Type Sample Site ABG pH (7.35-7.45) ABG pCO2 (35-45) mmHg ABG pO2 (80.0-100.0) mmH g ABG HCO3 (22-26) mmol/L ABG Base Excess (-2.0-2.0) mmol/ L Sp Test Hematocrit (42-52) % Hgb O2 Saturation (95-100) % Carboxyhemoglobin (0.4-20.1) %THgb Methemoglobin (0.4-1.5) % Total Hemoglobin (14-18) g/dL O2 Delivery Device Public Health Technician ID Sodium Potassium Chloride Carbon Dioxide Anion Gap BUN Creatinine GFR Calculation Glucose POC Glucose (70-110) mg/dL Calculated Osmolal ity Lactic Acid (0.5-2.2) mmol/L Calcium Total Bilirubin AST ALT Alkaline Phosphata se Creatine Kinase Troponin T Baselin e 82 H Troponin T 120 Min [place] (0-15) ng/L Delta Troponin T (0-10) ABS# NT-Pro-B Natriuret Pep 190 H Total Protein Albumin Globulin TSH Urine Color Yellow (Yellow) Urine Appearance Clear (CLEAR) Urine pH 7 (5-7) Ur Specific Gravit y 1.005 (1.005-1.030) Urine Protein 3+ H (Negative) Urine Glucose (UA) 2+ (Normal) Urine Ketones Negative (Negative) Urine Blood 3+ H (Negative) Urine Nitrate Negative (Negative) Urine Bilirubin Neg (Negative) Urine Urobilinogen 1 H (Negative) mg/dL Ur Leukocyte Michelle ase Negative (Negative) Urine RBC 5-10 H (0-2) /hpf Urine WBC 0-4 H (0-5) /hpf Ur Squamous Epith Cells 0-4 H (0-5) /hpf Amorphous Sediment Not Reportable Urine Bacteria 2+ H (NONE) /hpf SARS-CoV-2 Ag (Rap id) (Negative) 02/27/21 Range/Units 19:40 WBC (4.0-10.0) 10^3/ uL RBC (4.1-5.3) 10^6/u L Hgb (11.7-16.6) g/dL Hct (42.0-52.0) % MCV (80-94) fL MCH (28.0-34.0) pg MCHC (30.0-36.0) g/dL RDW (12.1-15.1) % Plt Count (130-400) 10^3/c mm MPV (7.4-10.4) fL Neut % (Auto) % Lymph % (Auto) % [place] % (Auto) % Eos % (Auto) % Baso % (Auto) % Neut # (Auto) (1.8-7.7) 10^3/u L Lymph # (Auto) (0.8-4.8) 10^3/u L [place] # (Auto) (0.2-0.9) 10^3/u L Eos # (Auto) (0.0-0.8) 10^3/u L Baso # (Auto) (0.0-0.1) 10^3/u L Nucleated RBC % (a uto) % Nucleated RBCs # /100WBC D-Dimer (0-0.59) ug/mIFE U Specimen Type Sample Site ABG pH (7.35-7.45) ABG pCO2 (35-45) mmHg ABG pO2 (80.0-100.0) mmH g ABG HCO3 (22-26) mmol/L ABG Base Excess (-2.0-2.0) mmol/ L Sp Test Hematocrit (42-52) % Hgb O2 Saturation (95-100) % Carboxyhemoglobin (0.4-20.1) %THgb Methemoglobin (0.4-1.5) % Total Hemoglobin (14-18) g/dL O2 Delivery Device Public Health Technician ID Sodium Potassium Chloride Carbon Dioxide Anion Gap BUN Creatinine GFR Calculation Glucose POC Glucose (70-110) mg/dL Calculated Osmolal ity Lactic Acid (0.5-2.2) mmol/L Calcium Total Bilirubin AST ALT Alkaline Phosphata se Creatine Kinase Troponin T Baselin e Troponin T 120 Min [place] 79.14 H (0-15) ng/L Delta Troponin T -2.86 L (0-10) ABS# NT-Pro-B Natriuret Pep Total Protein Albumin Globulin TSH Urine Color (Yellow) Urine Appearance (CLEAR) Urine pH (5-7) Ur Specific Gravit y (1.005-1.030) Urine Protein (Negative) Urine Glucose (UA) (Normal) Urine Ketones (Negative) Urine Blood (Negative) Urine Nitrate (Negative) Urine Bilirubin (Negative) Urine Urobilinogen (Negative) mg/dL Ur Leukocyte Michelle ase (Negative) Urine RBC (0-2) /hpf Urine WBC (0-5) /hpf Ur Squamous Epith Cells (0-5) /hpf Amorphous Sediment Urine Bacteria (NONE) /hpf SARS-CoV-2 Ag (Rap id) (Negative) Discharge Plan Discharge Patient Disposition: Admitted As Inpatient Admit Provider: Simon Doe Clinical Impression: Sepsis, Lymphadenopathy, Anasarca, CHF (congestive heart failure) Condition: Stable Coding Level of Care Code ED Assistant Banquet Manager for Koby Amezcua
--- NOTE | 2021-02-27 23:06 | PC.PHAR ---
Vancomycin is dosed at 1500mg IVPB every 12 hours to produce a predicted trough level of 16.67 (population based pharmacokinetic analysis). A trough level has been ordered from the lab to be obtained before the fourth dose to confirm and adjust if needed.
[2021-02-28] VITALS (55 sets, daily range): BP systolic 91–159; BP diastolic 52–93; PULSE 0–107; RESP 11–36; TEMP 36.8–38.1; O2SAT 86–97
[2021-02-28 00:25] LABS: Troponin 5 6HR 63.84 ng/L (0-15)
[2021-02-28] MEDS: enoxaparin 40 mg/0.4 mL Syringe SUBCUT (01:15)
[2021-02-28] MEDS: piperacillin-tazobactam 3.375 GM in sodium chloride 0.9% (plus) 100 ML IV ×3 (02:35→21:22)
--- NOTE | 2021-02-28 02:43 | PC.NURSE ---
Patient arrived to 0110. Patient is resting in room with no s/s of distress. Continue care.
[2021-02-28 04:55] LABS: Basophils # 0.1 10^3/uL (0.0-0.1); Basophils % 0.2 %; Eosinophils # 0.1 10^3/uL (0.0-0.8); Eosinophils % 0.5 %; Hematocrit 39.8 % (42.0-52.0); Hemoglobin 12.8 g/dL (11.7-16.6); Lymphocytes # 0.6 10^3/uL (0.8-4.8); Lymphocytes % 2.3 %; Mean Corpuscular HGB Conc 32.2 g/dL (30.0-36.0); Mean Corpuscular Volume 96.4 fL (80-94); Monocytes # 0.5 10^3/uL (0.2-0.9); Monocytes % 2.3 %; Neutrophils # 22.11 10^3/uL (1.8-7.7); Neutrophils % 93.1 %; Nucleated Red Blood Cells % 0 %; Platelet Count 165 10^3/cmm (130-400); Red Blood Count 4.13 10^6/uL (4.1-5.3); Red Cell Distribution Width 12.3 % (12.1-15.1); White Blood Count 23.8 10^3/uL (4.0-10.0)
--- NOTE | 2021-02-28 05:00 | USCV_ITS ---
Mark Katz Age: 60 Gender: M : 1960 Exam Date: 02/28/2021 06:23 Ordering Phys: Simon Doe MD Technologist: Barbara Potter Exam Location: [facility] [place] Indication: HEART FAILURE BP: / HR: 99 Rhythm: Sinus Technical Quality: Technically difficult study MEASUREMENTS (Male / Female) Normal Values 2D ECHO LV Diastolic Diameter PLAX 4.1 cm 4.2 - 5.9 / 3.9 - 5.3 cm LV Systolic Diameter PLAX 2.7 cm IVS Diastolic Thickness 2.0 cm 0.6 - 1.0 / 0.6 - 0.9 cm IVS Systolic Thickness 2.3 cm LVPW Diastolic Thickness 1.3 cm 0.6 - 1.0 / 0.6 - 0.9 cm LVPW Systolic Thickness 1.6 cm RV Chamber Size 2.9 cm LVOT Diameter 2.0 cm LV Ejection Fraction 2D Teich 65.2 % LV Ejection Fraction MOD 2C 61.1 % LV Ejection Fraction 2C AL 60.4 % LA Diameter 3.4 cm LA Width 4.4 cm LA Height 4.6 cm RA Width 4.0 cm RA Height 4.2 cm Aorta at Sinotubular Diameter 2.7 cm M-MODE Aortic Annulus Diameter 2.5 cm LA Ao Ratio MM 1.4 DOPPLER AV Peak Velocity 189.0 cm/s LVOT Peak Velocity 133.0 cm/s AV Area Cont Eq vti 2.4 cm squared AV Area Cont Eq pk 2.2 cm squared MV Area PHT 4.9 cm squared Mitral E to A Ratio 0.9 MV E' Velocity 54.5 cm/s Mitral E to MV E' Ratio 16.6 Mitral E to LV E' Lateral Ratio 18.4 Mitral E to LV E' Septal Ratio 15.4 TR Peak Velocity 215.0 cm/s TR Peak Gradient 18.5 mmHg Right Atrial Pressure 3.0 mmHg Pulmonary Artery Systolic Pressu 21.5 mmHg PV Peak Velocity 135.0 cm/s RV Acceleration Time 0.1 s RV Ejection Time 0.3 s RV AcT/ET 0.5 FINDINGS Left Ventricle Normal left ventricular size and systolic function, EF 64 %. No regional wall motion abnormalities.Grade I/IV diastolic dysfunction (abnormal relaxation filling pattern), normal to mildly elevated filling pressures. Right Ventricle The right ventricle is normal in size and function. Right Atrium The right atrium is normal in size. Left Atrium Mildly increased left atrial size. Mitral Valve Thickened mitral valve. Moderate mitral annular calcification. Aortic Valve Thickened aortic valve. Tricuspid Valve No gross abnormalities noted.trace tricuspid valve regurgitation. Estimated pulmonary artery peak systolic pressure was 22 mmHg. This could be an underestimation because of the poor Doppler signal Pulmonic Valve Pulmonic valve not well visualized. Pericardium Normal pericardium without effusion. Aorta Normal ascending aorta dimension. CONCLUSIONS Normal left ventricular size and systolic function, EF 64 %. No regional wall motion abnormalities.Grade I/IV diastolic dysfunction (abnormal relaxation filling pattern), normal to mildly elevated filling pressures. Thickened mitral valve. Moderate mitral annular calcification. Mildly increased left atrial size. Thickened aortic valve. Trace tricuspid valve regurgitation. Estimated pulmonary artery peak systolic pressure was 22 mmHg. This could be an underestimation because of the poor Doppler signals. Dr Kaylie Wheeler MD FACC (Electronically Signed) Final Date: 28 February 2021 14:15 S
[2021-02-28] MEDS: vancomycin 1,500 MG/300 ML PIGGYBACK 150 MG IV ×2 (05:02→17:15)
[2021-02-28 05:16] LABS: Estmated Average Glucose 200; Hemoglobin A1C 8.6 % (4.0-6.0)
--- NOTE | 2021-02-28 05:18 | PC.NURSE ---
Urine reported out from ER before arrival of 1800mL
[2021-02-28 05:19] LABS: Lactic Sepsis W/Reflex 1.7 mmol/L (0.5-2.2)
[2021-02-28 05:25] LABS: Alanine Aminotransferase 23 U/L (0-41); Albumin Level 2.3 g/dL (3.5-5.2); Alkaline Phosphatase 144 IU/L (40-130); Anion Gap 12.5 (5-19); Aspartate Amino Transferase 21 U/L (0-40); Blood Urea Nitrogen 12 mg/dL (8-23); Calcium 7.5 mg/dL (8.5-10.5); Carbon Dioxide 24 mmol/L (22-29); Chloride 101 mmol/L (98-107); Globulin 2.9 g/dL (1.3-4.6); Glomerular Filtration Rate 47.4 mL/min (90-130); Glucose 287 mg/dL (65-115); Osmolality Calculated 288 mOsm/kg (285-295); Potassium 3.5 mmol/L (3.5-5.1); Procalcitonin 2.54 ng/mL (0-0.5); Sodium 134 mmol/L (136-145); Thyroid Stimulating Hormone 0.58 uIU/mL (0.27-4.20); Total Bilirubin 0.6 mg/dL (0.15-1.2); Total Protein 5.2 g/dL (6.6-8.7)
[2021-02-28] MEDS: pantoprazole DR 40 mg Tablet PO (08:04)
[2021-02-28] MEDS: acetaminophen 325 mg Tablet 650 MG PO ×2 (08:05→16:12)
[2021-02-28 08:17] LABS: Glucose Point of Care 275 mg/dL (70-110)
[2021-02-28] MEDS: ipratropium-albuterol 3 mL Neb INHALATION ×2 (09:38→19:45)
--- NOTE | 2021-02-28 10:09 | PC.CHAP ---
Pastoral Care Encounter/Spiritual Assessment Type of Contact [] Declined garment turner visit [] Patient/Family/Request visit [] Outpatient visit [] Follow-up visit [] Physician referral [] Code/Alert [x] Routine visit [] Staff referral [] Actively dying [x] Patient sleeping [] Family support [] [] Out of room [] Palliative care [] [] Receiving care in room [] Pre-surgical visit [] Trauma [] Long length of stay [x] ICU visit [] Other: Relational/Emotional Strength [] Patient feels connected with others/family/visitors/staff [] Distress [] Loneliness/isolation [] Abandonment Spirituality of Patient [] Person of Nina [] Attends Yazidi of their Nina [] Believes in Prayer [] Reads Bible or Sikh materials [] There are Spiritual issues to be addressed Stenographer Secretary Interventions [x] Prayer [] Active listening [] Non-anxious presence [] Spiritual/emotional support [] Crisis/trauma care [] Spiritual counseling [] Bereavement support [] Provided bereavement packet [] Provided Bible/devotional materials [] Provided toy/stuffed animal, coloring book to patient or family member [] Provided Communion [] Anointing/[place] [] Salvation [x] Completed spiritual assessment [] Other: Impact on Illness or Injury [] Angry [] Fearful [] Anxious [] Often cries [] Exhaustion [] Unable to work [] Unable to attend mandaeism [] Unable to walk/stand [] Unable to read [] Unable to drive [] Unable to eat/drink [] Unable to sleep [] Unable to be with family [] Patient intubated [] Other: Summary Time spent with patient
[2021-02-28 11:23] LABS: Glucose Point of Care 243 mg/dL (70-110)
--- NOTE | 2021-02-28 11:54 | PM.PN ---
Subjective Subjective: Interval history: Patient was seen and examined this morning, complaining of generalized body pain, predominantly back pain. Noted T-max 100.6. His other vitals and labs have been reviewed. Medications: Reviewed: Yes Vitals/I&O/Wt Last Vital Signs Temp 100.6 F H 02/28/21 07:00 Pulse 93 02/28/21 10:00 Resp 29 H 02/28/21 10:00 BP 148/61 02/28/21 10:00 Pulse Ox 89 L 02/28/21 10:00 02/27/21 02/28/21 02/28/21 22:59 06:59 14:59 Intake Total 1132.5 / 1132.5 267.5 / 1400.0 500 / 500 Output Total 2100 / 2100 Balance 1132.5 / 1132.5 -1832.5 / -700.0 500 / 500 Weight last 48 hrs Weight 123.916 kg Weight 118.977 kg Weight 115.666 kg Physical Exam Const: COMMON NORMALS: patient oriented x3 HENMT: COMMON NORMALS: normocephalic and atraumatic HEAD & SCALP: normocephalic and atraumatic Chest: CHEST: Yes Symmetrical chest wall rise Resp: COMMON NORMALS: clear to auscultation bilaterally EFFORT & INSPECTION: Yes symmetric chest movement AUSCULTATION: clear to auscultation bilaterally Cardio: COMMON NORMALS: regular rate, regular rhythm, S1 normal heart sound present, S2 normal heart sound present, No gallops present (Cardio), No murmurs present (Cardio), No rub (Cardio) and Peripheral pulses 2+ throughout RATE: regular rate RHYTHM: regular rhythm HEART SOUNDS: S1 normal heart sound present and S2 normal heart sound present PERIPHERAL PULSES: Peripheral pulses 2+ throughout GI: COMMON NORMALS: Normal to inspection, nondistended, normoactive bowel sounds present, Soft to palpation, non-tender, No hepatosplenomegaly present and no masses AUSCULTATION: Yes normoactive bowel sounds PALPATION: Yes Soft to palpation and Yes No hepatosplenomegaly present RECTAL EXAM: Yes deferred Extremity: OTHER: Chronic left foot ulcer Neuro: COMMON NORMALS: patient oriented x3 Urinary Catheter Management^: Medrano: Cath Placed During This Visit: yes Reason for Continuing Indwelling Catheter: Accurate Measurement of Urinary Output in Critically Ill Patients Urinary Catheter Date of Insertion: 02/28/21 Urinary Catheter Time of Insertion: 11:45 Data : 02/28/21 04:30 02/28/21 04:30 Micro: Microbiology 02/27/21 16:47 Blood Culture - Preliminary Blood SPECIMEN COLLECTED 02/27/21 16:13 Blood Culture - Preliminary Blood SPECIMEN COLLECTED A&P Assessment and plan (1) Sepsis due to undetermined organism: Sespis source unknown Temperature of a 100.0, heart rate 114, WBC: 23 Blood cultures x2 MRSA PCR: Procalcitonin :2.54 Rapid and PCR COVID-19 : Negative Continue vancomycin and Zosyn Status: Acute (2) Altered mental state: Acute metabolic encephalopathy multifactorial: Sepsis, ALYSSA : Currently improving: Currently is alert oriented x3. Status: Acute (3) Acute on chronic heart failure with normal ejection fraction: Heart failure with ejection fraction: Currently compensated Echocardiogram last noted in 2006 2D Echocardiogram: Normal LV size and systolic function with EF of 55%, no RWMA ,Thickened mitral valve. Moderate mitral annular calcification. Mildly increased left atrial size. Thickened aortic valve. Trace tricuspid valve regurgitation.Estimated pulmonary artery peak systolic pressure was 22 mmHg. Status post Lasix 40 mg IV x1 by ER. Monitor intake output Monitor daily weight K>4, magnesium greater than 2. Status: Acute (4) COPD (chronic obstructive pulmonary disease): Currently not in exacerbation. DuoNebs Supplemental oxygen as needed Status: Acute (5) Hypertension: Currently blood pressure is well controlled. Continue to monitor Status: Acute (6) Ankylosing spondylitis: Status: Acute (7) Diabetes mellitus: Sliding scale insulin Status: Acute (8) Chronic ulcer of left foot due to diabetes mellitus: May consider Consultation with wound care Culture wound Consider KAM Pressure offloading Status: Acute (9) Tobacco abuse: Two pack per day smoker Nicotine p.r.n. Status: Acute Attestations Medical Necessity Statement*: Patient needs to be in the hospital for management of sepsis. Coding Level of Care Code Acute Electronic Warfare Linguist for Koby Amezcua Diagnoses Sepsis due to undetermined organism A41.9 Altered mental state R41.82 Acute on chronic heart failure with normal ejection fraction I50.33 COPD (chronic obstructive pulmonary disease) J44.9 Hypertension I10 Ankylosing spondylitis M45.9 Diabetes mellitus E11.9 Chronic ulcer of left foot due to diabetes mellitus E11.621; L97.529 Tobacco abuse Z72.0
--- NOTE | 2021-02-28 12:28 | PC.NURSE ---
This AM patient was groaning and complaining of abdominal pain, back pain, and leg pain. Pain did not respond when asked what the level was on a 1-10 scale. FLACC scale was at a 6. PRN medication was given. Patient remains A&O x 4.
[2021-02-28] MEDS: HYDROcodone-acetaminophen 5-325 mg Tablet 1 TAB PO ×2 (13:04→19:20)
[2021-02-28 14:07] LABS: Coronavirus Test Green County Not Detected
--- NOTE | 2021-02-28 16:14 | PC.NURSE ---
PRN tylenol order given for pain 03/20. PRN norco not able to be given for another hour.
--- NOTE | 2021-02-28 18:00 | PC.NURSE ---
Patient transferred to [facility] via wheelchair with all belongings and at bedside. Gave all mediations before transferring and patient refused PRN pain medication.
[2021-02-28 20:59] LABS: Glucose Point of Care 170 mg/dL (70-110)
[2021-03-01] VITALS (12 sets, daily range): BP systolic 131–161; BP diastolic 73–85; PULSE 79–90; RESP 16–18; TEMP 36.8–37.6; O2SAT 94–98
[2021-03-01] MEDS: ondansetron 2 mg/ML SDV 2 mL 4 MG IVP ×2 (02:20→09:22)
[2021-03-01] MEDS: ipratropium-albuterol 3 mL Neb INHALATION ×3 (03:22→21:39)
[2021-03-01] MEDS: piperacillin-tazobactam 3.375 GM in sodium chloride 0.9% (plus) 100 ML IV ×3 (03:50→18:18)
[2021-03-01 06:12] LABS: Vancomycin Trough 18.6 ug/mL (10-15)
[2021-03-01] MEDS: vancomycin 1,500 MG/300 ML PIGGYBACK 150 MG IV (06:41)
[2021-03-01 06:47] LABS: Glucose Point of Care 186 mg/dL (70-110)
[2021-03-01] MEDS: pantoprazole DR 40 mg Tablet PO (09:25)
[2021-03-01] MEDS: sodium chloride 0.9% 1,000 ML 75 ML IV (09:26)
[2021-03-01 11:06] LABS: Basophils % 0.2 %; Eosinophils # 0.1 10^3/uL (0.0-0.8); Eosinophils % 0.5 %; Hematocrit 38.6 % (42.0-52.0); Hemoglobin 12.2 g/dL (11.7-16.6); Lymphocytes # 1.7 10^3/uL (0.8-4.8); Lymphocytes % 10.1 %; Mean Corpuscular HGB Conc 31.6 g/dL (30.0-36.0); Mean Corpuscular Hemoglobin 31.6 pg (28.0-34.0); Mean Platelet Volume 12.1 fL (7.4-10.4); Monocytes # 1.1 10^3/uL (0.2-0.9); Monocytes % 6.5 %; Nucleated Red Blood Cells % 0 %; Platelet Count 164 10^3/cmm (130-400); Red Blood Count 3.86 10^6/uL (4.1-5.3); Red Cell Distribution Width 12.4 % (12.1-15.1); White Blood Count 16.6 10^3/uL (4.0-10.0)
[2021-03-01 11:15] LABS: Alanine Aminotransferase 20 U/L (0-41); Albumin Level 2.1 g/dL (3.5-5.2); Alkaline Phosphatase 135 IU/L (40-130); Anion Gap 12.7 (5-19); Aspartate Amino Transferase 24 U/L (0-40); Blood Urea Nitrogen 16 mg/dL (8-23); Calcium 7.4 mg/dL (8.5-10.5); Carbon Dioxide 24 mmol/L (22-29); Chloride 102 mmol/L (98-107); Globulin 3.6 g/dL (1.3-4.6); Glomerular Filtration Rate 51.4 mL/min (90-130); Glucose 269 mg/dL (65-115); Osmolality Calculated 291 mOsm/kg (285-295); Potassium 3.7 mmol/L (3.5-5.1); Sodium 135 mmol/L (136-145); Total Bilirubin 0.3 mg/dL (0.15-1.2); Total Protein 5.7 g/dL (6.6-8.7)
[2021-03-01 11:25] LABS: Magnesium 1.8 mg/dL (1.7-2.3)
[2021-03-01 11:38] LABS: Glucose Point of Care 257 mg/dL (70-110)
[2021-03-01 16:57] LABS: Glucose Point of Care 217 mg/dL (70-110)
--- NOTE | 2021-03-01 17:11 | P.PN_ITS ---
Subjective Subjective: Interval history: Patient was seen and examined this morning, overall he is doing better, WBC count is trending down, MRSA PCR is negative. Continue to remain afebrile. Other vitals and labs have been reviewed. Medications: Reviewed: Yes Vitals/I&O/Wt Last Vital Signs Temp 98.3 F 03/01/21 16:00 Pulse 82 03/01/21 16:00 Resp 18 03/01/21 16:00 BP 131/77 03/01/21 16:00 Pulse Ox 96 03/01/21 16:00 03/01/21 03/01/21 03/01/21 06:59 14:59 22:59 Intake Total 80.833 / 7077.993 9269 / 1240 100 / 1340 Output Total 400 / 1450 Balance -319.167 / -342.158 5845 / 1240 100 / 1340 Weight last 48 hrs Weight 122.969 kg Weight 123.916 kg Weight 118.977 kg Physical Exam Const: COMMON NORMALS: patient oriented x3 HENMT: COMMON NORMALS: normocephalic and atraumatic HEAD & SCALP: normocephalic and atraumatic Chest: CHEST: Yes Symmetrical chest wall rise Resp: COMMON NORMALS: clear to auscultation bilaterally EFFORT & INSPECTION: Yes symmetric chest movement AUSCULTATION: clear to auscultation bilaterally Cardio: COMMON NORMALS: regular rate, regular rhythm, S1 normal heart sound present, S2 normal heart sound present, No gallops present (Cardio), No murmurs present (Cardio), No rub (Cardio) and Peripheral pulses 2+ throughout RATE: regular rate RHYTHM: regular rhythm HEART SOUNDS: S1 normal heart sound p resent and S2 normal heart sound present PERIPHERAL PULSES: Peripheral pulses 2+ throughout GI: COMMON NORMALS: Normal to inspection, nondistended, normoactive bowel sounds present, Soft to palpation, non-tender, No hepatosplenomegaly present and no masses AUSCULTATION: Yes normoactive bowel sounds PALPATION: Yes Soft to palpation and Yes No hepatosplenomegaly present RECTAL EXAM: Yes deferred Extremity: OTHER: Chronic left foot ulcer Neuro: COMMON NORMALS: patient oriented x3 Urinary Catheter Management^: Medrano: Cath Placed During This Visit: yes Reason for Continuing Indwelling Catheter: Accurate Measurement of Urinary Output in Critically Ill Patients Urinary Catheter Date of Insertion: 02/28/21 Urinary Catheter Time of Insertion: 11:45 Data : 03/01/21 10:40 03/01/21 10:40 Micro: Microbiology 02/28/21 18:50 MRSA Culture - Final Nose 02/27/21 18:48 Urine Culture - Preliminary Urine,Clean Catch 02/27/21 16:47 Blood Culture - Preliminary Blood NEGATIVE TO DATE 02/27/21 16:13 Blood Culture - Preliminary Blood NEGATIVE TO DATE A&P Assessment and plan (1) Sepsis due to undetermined organism: Sespis source unknown Temperature of a 100.0, heart rate 114, WBC: 23 Blood cultures x2 MRSA PCR: Negative Procalcitonin :2.54 Rapid and PCR COVID-19 : Negative Initially on vancomycin discontinued on 03/01 Continue Zosyn Status: Acute (2) Altered mental state: Acute metabolic encephalopathy multifactorial: Sepsis, ALYSSA : Resolved Currently alert oriented x3 Status: Acute (3) Acute on chronic heart failure with normal ejection fraction: Heart failure with ejection fraction: Currently compensated Echocardiogram last noted in 2006 2D Echocardiogram: Normal LV size and systolic function with EF of 55%, no RWMA ,Thickened mitral valve. Moderate mitral annular calcification. Mildly increased left atrial size. Thickened aortic valve. Trace tricuspid valve regurgitation.Estimated pulmonary artery peak systolic pressure was 22 mmHg. Status post Lasix 40 mg IV x1 by ER. Monitor intake output Monitor daily weight K>4, magnesium greater than 2. Status: Acute (4) COPD (chronic obstructive pulmonary disease): Currently not in exacerbation. DuoNebs Supplemental oxygen as needed Status: Acute (5) Hypertension: Currently blood pressure is well controlled. Continue to monitor Status: Acute (6) Ankylosing spondylitis: Status: Acute (7) Diabetes mellitus: Sliding scale insulin Status: Acute (8) Chronic ulcer of left foot due to diabetes mellitus: May consider Consultation with wound care Culture wound Consider KAM Pressure offloading Status: Acute (9) Tobacco abuse: Two pack per day smoker Nicotine p.r.n. Status: Acute Attestations Medical Necessity Statement*: Patient needs to be in hospital for management of sepsis of unclear source. Coding Level of Care Code Acute Recreational Sports Director for Koby Fwd Exam Detailed Diagnoses Sepsis due to undetermined organism A41.9 Altered mental state R41.82 Acute on chronic heart failure with normal ejection fraction I50.33 COPD (chronic obstructive pulmonary disease) J44.9 Hypertension I10 Ankylosing spondylitis M45.9 Diabetes mellitus E11.9 Chronic ulcer of left foot due to diabetes mellitus E11.621; L97.529 Tobacco abuse Z72.0
[2021-03-01 20:45] LABS: Glucose Point of Care 202 mg/dL (70-110)
[2021-03-02 04:05] VITALS: BP 154/84; PULSE 84; RESP 16; TEMP 37; O2SAT 97
[2021-03-02] MEDS: piperacillin-tazobactam 3.375 GM in sodium chloride 0.9% (plus) 100 ML IV (04:46)
[2021-03-02 06:20] VITALS: PULSE 89; RESP 17; O2SAT 96
[2021-03-02 06:25] VITALS: PULSE 86
[2021-03-02 06:26] LABS: Basophils % 0.4 %; Eosinophils # 0.3 10^3/uL (0.0-0.8); Eosinophils % 2.8 %; Hematocrit 37.3 % (42.0-52.0); Hemoglobin 11.8 g/dL (11.7-16.6); Lymphocytes # 2.1 10^3/uL (0.8-4.8); Lymphocytes % 19.4 %; Mean Corpuscular HGB Conc 31.6 g/dL (30.0-36.0); Mean Corpuscular Hemoglobin 30.8 pg (28.0-34.0); Mean Corpuscular Volume 97.4 fL (80-94); Mean Platelet Volume 12.4 fL (7.4-10.4); Monocytes # 0.7 10^3/uL (0.2-0.9); Monocytes % 5.9 %; Neutrophils # 7.76 10^3/uL (1.8-7.7); Neutrophils % 70.5 %; Nucleated Red Blood Cells % 0 %; Platelet Count 174 10^3/cmm (130-400); Red Blood Count 3.83 10^6/uL (4.1-5.3); Red Cell Distribution Width 12.2 % (12.1-15.1)
[2021-03-02 06:41] LABS: Glucose Point of Care 208 mg/dL (70-110)
[2021-03-02 06:56] LABS: Alanine Aminotransferase 19 U/L (0-41); Albumin Level 2.2 g/dL (3.5-5.2); Alkaline Phosphatase 122 IU/L (40-130); Anion Gap 12.6 (5-19); Aspartate Amino Transferase 24 U/L (0-40); Blood Urea Nitrogen 17 mg/dL (8-23); Calcium 7.5 mg/dL (8.5-10.5); Carbon Dioxide 23 mmol/L (22-29); Chloride 102 mmol/L (98-107); Globulin 3.3 g/dL (1.3-4.6); Glucose 218 mg/dL (65-115); Magnesium 1.8 mg/dL (1.7-2.3); Osmolality Calculated 286 mOsm/kg (285-295); Potassium 3.6 mmol/L (3.5-5.1); Sodium 134 mmol/L (136-145); Total Bilirubin 0.3 mg/dL (0.15-1.2); Total Protein 5.5 g/dL (6.6-8.7)
[2021-03-02 08:00] VITALS: BP 143/82; PULSE 85; RESP 16; TEMP 36.6; O2SAT 96
--- NOTE | 2021-03-02 08:43 | PM.DCS ---
Discharge Providers Date of Admission: 02/27/21 22:06 Date of Discharge: March 02, 2021 Attending Provider at Admission: Simon Doe Attending Provider at Discharge: Jose Alejandro Greco MD Primary Care Provider: Vivek Dee DO Diagnoses at Discharge Discharge Diagnosis (1) Sepsis due to undetermined organism: Status: Resolved (2) Altered mental state: Status: Resolved (3) Acute on chronic heart failure with normal ejection fraction: Status: Chronic (4) COPD (chronic obstructive pulmonary disease): Status: Acute (5) Hypertension: Status: Acute (6) Ankylosing spondylitis: Status: Acute (7) Diabetes mellitus: Status: Acute (8) Chronic ulcer of left foot due to diabetes mellitus: Status: Acute (9) Tobacco abuse: Status: Acute Reason for Visit Reason for Visit: LLE pain Hospital Course Hospital Course 48-year-old male with a past medical history significant for anxiety, depression, chronic severe back pain due to alkalosing spondolyitis, opioid dependence, chronic obstructive pulmonary disease, heavy tobacco abuse (>2ppd), obstructive sleep apnea non-compliant with cpap,, chronic HFpEF with last known ECHO in 2009 showed left atrial dilation, hypertension, diabetes mellitus, chronic left foot ulcer, as well as chronic bilateral lower extremity edema who presented to ER with altered mental status and left knee pain. Patients at bedside provided history. Patient was confused at the time of my eval. Per she related his confusion to opiod withdrawal as he had ran out of his oxycodone 1 day prior. During this time he started to complain of left knee pain. Denied any fall or recent trauma. At baseline he is able to walk short distances with assist however he was not able to do so. He does have a chronic diabetic foot ulcer on left foot which was evaluvated by wound care on 02/26. A left foot x-ray was done which showed diffuse soft tissue edema worse involving the dorsal midfoot without any evidence of acute fracture or bony destruction indicate osteomyelitis.He was not started on antibiotics.Wound has been draining yellow pus like discharge however very minimal per . Denied fever, or chills. Noted nausea however no emesis. Laboratory workup upon arrival showed a WBC of 25.9, hemoglobin of 14.8, hematocrit 47.0 and a platelet count of 160. D-dimer was elevated at 1.52. Arterial blood gases showed a pH of 7.44, pCO2 of 37.1, PO2 of 64.6 and a bicarb of 25.2. Sodium 137, potassium 3.8, chloride 104, bicarb 22, BUN 10 and creatinine of 1.0. Lactic acid of 1.2. Troponin T baseline of 82, 79 at 120 minutes, proBNP of 190. Urinalysis showed 3+ blood, negative nitrites or leukocyte esterase. COVID-19 antigen was negative. PCR was negative. Chest x-ray showed pulmonary vascular congestion and cardiomegaly consistent with mild congestive heart failure, right lower extremity venous duplex was attempted however limited due to lower extremity pain. CT chest abdomen pelvis noted coronary artery atherosclerotic calcifications without any evidence of pulmonary embolism, infiltrates or consolidation. Abdominal portion showed constipation without any additional abnormality. Head CT did not show any evidence of acute intracranial abnormality.Left lower extremity CTA showed edmea as well as reactive ingunal lymphdenopathy. Initial vitals showed a temp of 100.0, HR of 114, RR 22, and BP of 167/93. O2 sat of 96% on RA. In ER patient was given 1L NS bolus x 2, Lasix 40 mg IV x1, Zosyn 3.375g IV x1, Vancomycin 1500 mg IV x 1, Morphine 2 mg IV x 1. Patient was admitted for management of sepsis, as well as acute metabolic encephalopathy, multifactorial likely secondary to sepsis , ALYSSA , opioid withdrawal. Blood culture was negative , procalcitonin was elevated at 2.54, MRSA PCR was negative:Patient responded well to the IV antibiotics during the hospital stay, at the time of discharge he was hemodynamically stable and afebrile,wbc count was appropriately trending down.He was not discharged on any oral antibiotics. Acute metabolic encephalopathy had resolved the time of discharge, he was alert oriented x3, for his history of heart failure with preserved EF fraction he was compensated. Echo done during the hospital stay: Showed preserved LV size and systolic function with EF of 55% no RWMA. Thickened mitral valve. Moderate mitral annular calcification. Mildly increased left atrial size. Thickened aortic valve.Trace tricuspid valve regurgitation.Estimated pulmonary artery peak systolic pressure was 22 mmHg. For his COPD he was not in exacerbation.Chronic ulcer of left foot due to diabetes mellitus,he will continue to follow wound care as an outpatient. Patient overall responded well to the above medical management and is being discharged in stable condition to home. Physical Exam Const: COMMON NORMALS: patient oriented x3 HENMT: COMMON NORMALS: normocephalic and atraumatic HEAD & SCALP: normocephalic and atraumatic Chest: CHEST: Yes Symmetrical chest wall rise Resp: COMMON NORMALS: clear to auscultation bilaterally EFFORT & INSPECTION: Yes symmetric chest movement AUSCULTATION: clear to auscultation bilaterally Cardio: COMMON NORMALS: regular rate, regular rhythm, S1 normal heart sound present, S2 normal heart sound present, No gallops present (Cardio), No murmurs present (Cardio), No rub (Cardio) and Peripheral pulses 2+ throughout RATE: regular rate RHYTHM: regular rhythm HEART SOUNDS: S1 normal heart sound present and S2 normal heart sound present PERIPHERAL PULSES: Peripheral pulses 2+ throughout GI: COMMON NORMALS: Normal to inspection, nondistended, normoactive bowel sounds present, Soft to palpation, non-tender, No hepatosplenomegaly present and no masses AUSCULTATION: Yes normoactive bowel sounds PALPATION: Yes Soft to palpation and Yes No hepatosplenomegaly present RECTAL EXAM: Yes deferred Extremity: OTHER: Chronic left foot ulcer Neuro: COMMON NORMALS: patient oriented x3 Urinary Catheter Management^: Medrano: Cath Placed During This Visit: yes, but has since been removed by the nurse Reason for Continuing Indwelling Catheter: Decision to DC Catheter Urinary Catheter Date of Insertion: 02/28/21 Urinary Catheter Time of Insertion: 11:45 Date Urinary Catheter Removed: 03/01/21 Time Urinary Catheter Discontinued: 17:38 Discharge Data Data Completed and Pending: Completed Studies During Hospitalization Category Date Time Status CT angio LE BI [id number] Urgent Cat Scan 02/27/21 19:[address] angio chest w abd pel w con Urge nt Cat Scan 02/27/21 17:[address] head wo con* [id number] Urgent Cat Scan 02/27/21 17:37 Completed XR chest 1V eder ble [id number] Urgent Exams 02/27/21 15:53 [place] [id number] Urgent Ultrasound 02/27/21 15:58 Completed CV. echo complete * [id number] Routine Ultrasound 02/28/21 05:00 Completed Pending at discharge Category Date Time Status Blood Culture Sta t Lab 02/27/21 16:47 Results Complete Blood Co unt w/Auto AM LABS Lab 03/03/21 04:00 Ordered Comprehensive Met abolic Panel AM LA BS Lab 03/03/21 04:00 Ordered Magnesium AM LABS Lab 03/03/21 04:00 Ordered Urine Culture Sta t Lab 02/27/21 18:48 Results Labs from last 24 hours 03/02/21 03/02/21 03/02/21 06:12 05:35 05:35 WBC 11.0 H RBC 3.83 L Hgb 11.8 Hct 37.3 L MCV 97.4 H MCH 30.8 MCHC 31.6 RDW 12.2 Plt Count 174 MPV 12.4 H Neut % (Auto) 70.5 Lymph % (Auto) 19.4 [place] % (Auto) 5.9 Eos % (Auto) 2.8 Baso % (Auto) 0.4 Neut # (Auto) 7.76 H Lymph # (Auto) 2.1 [place] # (Auto) 0.7 Eos # (Auto) 0.3 Baso # (Auto) 0.0 Nucleated RBC % (a uto) 0 Nucleated RBCs # 0.0 Sodium 134 L Potassium 3.6 Chloride 102 Carbon Dioxide 23 Anion Gap 12.6 BUN 17 Creatinine 1.6 H GFR Calculation 44.0 L Glucose 218 H POC Glucose 208 H Calculated Osmolal ity 286 Calcium 7.5 L Magnesium 1.8 Total Bilirubin 0.3 AST 24 ALT 19 Alkaline Phosphata se 122 Total Protein 5.5 L Albumin 2.2 L Globulin 3.3 03/01/21 03/01/21 03/01/21 20:15 16:46 11:14 WBC RBC Hgb Hct MCV MCH MCHC RDW Plt Count MPV Neut % (Auto) Lymph % (Auto) [place] % (Auto) Eos % (Auto) Baso % (Auto) Neut # (Auto) Lymph # (Auto) [place] # (Auto) Eos # (Auto) Baso # (Auto) Nucleated RBC % (a uto) Nucleated RBCs # Sodium Potassium Chloride Carbon Dioxide Anion Gap BUN Creatinine GFR Calculation Glucose POC Glucose 202 H 217 H 257 H Calculated Osmolal ity Calcium Magnesium Total Bilirubin AST ALT Alkaline Phosphata se Total Protein Albumin Globulin 03/01/21 03/01/21 03/01/21 10:40 10:40 10:40 WBC 16.6 H RBC 3.86 L Hgb 12.2 Hct 38.6 L MCV 100.0 H MCH 31.6 MCHC 31.6 RDW 12.4 Plt Count 164 MPV 12.1 H Neut % (Auto) 82.0 Lymph % (Auto) 10.1 [place] % (Auto) 6.5 Eos % (Auto) 0.5 Baso % (Auto) 0.2 Neut # (Auto) 13.60 H Lymph # (Auto) 1.7 [place] # (Auto) 1.1 H Eos # (Auto) 0.1 Baso # (Auto) 0.0 Nucleated RBC % (a uto) 0 Nucleated RBCs # 0.0 Sodium 135 L Potassium 3.7 Chloride 102 Carbon Dioxide 24 Anion Gap 12.7 BUN 16 Creatinine 1.4 H GFR Calculation 51.4 L Glucose 269 H POC Glucose Calculated Osmolal ity 291 Calcium 7.4 L Magnesium 1.8 Total Bilirubin 0.3 AST 24 ALT 20 Alkaline Phosphata se 135 H Total Protein 5.7 L Albumin 2.1 L Globulin 3.6 Vitals: Last Vital Signs Temp 97.8 F 03/02/21 08:00 Pulse 85 03/02/21 08:00 Resp 16 03/02/21 08:00 BP 143/82 03/02/21 08:00 Pulse Ox 96 03/02/21 08:00 Discharge Plan Discharge Patient Disposition: Home Condition: Stable Prescriptions: Continued dextroamphetamine-amphetamine 10 mg tablet 10 mg PO BID RF: 0 insulin NPH and regular human 100 unit/mL (70-30) Suspension See Rx Instructions .ROUTE .COMPLEX RF: 0 oxycodone 30 mg tablet 30 - 60 mg PO Q4H PRN (Reason: Pain) RF: 0 insulin regular human See Rx Instructions .ROUTE .COMPLEX RF: 0 Fish Oil 120-180-500 mg Capsule 1 cap PO DAILY RF: 0 Discharge Orders: Discharge Order (Routine); Ordered 03/02/21 Ordered By: Jose Alejandro Greco Discharge Diet: Diabetic Discharge Activity: Resume usual activity Patient Instructions: COPD, How to Stop Smoking (GEN), Cigarette Smoking and Your Health (GEN), Lumbar Radiculopathy (GEN), Opioid Safety Discharge Attestations Time Spent in Discharge Care*: less than 30 min Specific Discharge Activities: educating patient, educating and/or supporting family/caregiver, discussing with pcp/other providers, discussing with supportive employment case manager/social workers/dc planners, documenting/other paperwork and evaluating patient/reviewing data Status at Discharge: Cognitive status at discharge: cognitively intact, Behavioral status at discharge: cooperative, Functional status at discharge: independent ambulation Overall status at discharge: patient is back to baseline Quality Metrics Clinical Quality Measures During this hospital stay, did patient experience: None Coding Level of Care Code Acute g FW [place] note Diagnoses Sepsis due to undetermined organism A41.9 Altered mental state R41.82 Acute on chronic heart failure with normal ejection fraction I50.33 COPD (chronic obstructive pulmonary disease) J44.9 Hypertension I10 Ankylosing spondylitis M45.9 Diabetes mellitus E11.9 Chronic ulcer of left foot due to diabetes mellitus E11.621; L97.529 Tobacco abuse Z72.0
[2021-03-02] MEDS: pantoprazole DR 40 mg Tablet PO (09:26)
[2021-03-02 10:47] VITALS: BP 143/82; PULSE 85; RESP 16; TEMP 36.6; O2SAT 96
--- NOTE | 2021-03-02 15:12 | PC.RESP ---
SMOKING CESSATION AND PULMONARY REHAB INFORMATION SENT TO PATIENT.
== END 2021-03-02 10:00 | disposition home or self-care (01) | DRG 871 ==
LOC: ER 15:33 → MEDSURG 22:31 → ER IP 23:44 → ICU 23:45 → MEDSURG 02-28 17:39
PROVIDERS: Admitting Provider Hospitalist; Emergency Provider Family Medicine; PCP Family Medicine; Visit Provider Internal Medicine
DX: A41.9 Sepsis, unspecified organism (principal); I50.33 Acute on chronic diastolic (congestive) heart failure; G93.41 Metabolic encephalopathy; F11.23 Opioid dependence with withdrawal; N39.0 Urinary tract infection, site not specified; N17.9 Acute kidney failure, unspecified; E11.621 Type 2 diabetes mellitus with foot ulcer; L97.529 Non-pressure chronic ulcer of other part of left foot with unspecified severity; F41.8 Other specified anxiety disorders; G89.29 Other chronic pain; M43.10 Spondylolisthesis, site unspecified; J44.9 Chronic obstructive pulmonary disease, unspecified; F17.210 Nicotine dependence, cigarettes, uncomplicated; G47.33 Obstructive sleep apnea (adult) (pediatric); Z91.19 Patient's noncompliance with other medical treatment and regimen; I11.0 Hypertensive heart disease with heart failure; T40.2X5A Adverse effect of other opioids, initial encounter; I25.10 Atherosclerotic heart disease of native coronary artery without angina pectoris; K59.00 Constipation, unspecified; Z79.4 Long term (current) use of insulin
CPT/HCPCS: 36415; 36416; 36600; 51702; 70450; 71045; 71275; 73706; 74177; 80048; 80053; 80202; 81001; 82550; 82805; 82962; 83036; 83605; 83735; 83880; 84145; 84443; 84484; 85025; 85378; 87040; 87086; 87426; 87635; 87641; 93005; 93306; 93970; 94640; 94664; 96365; 96367; 96368; 96372; 96375; 97162; 97167; 97530; 97535; 99285; J1650; J1815; J1940; J2270; J2405; J2543; J3370; J3535; J7030; Q9967

== ENCOUNTER 2021-03-05 13:54 | Outpatient (CLI) | payer MEDICAID, SELFPAY | END 2021-03-05 13:55 | disposition home or self-care (01) | LOC: WOUND 13:56 | PROVIDERS: PCP Family Medicine; Visit Provider Nurse Practitioner Family | DX: E11.621 Type 2 diabetes mellitus with foot ulcer (principal); L97.522 Non-pressure chronic ulcer of other part of left foot with fat layer exposed | CPT/HCPCS: 11042 ==

== ENCOUNTER 2021-03-19 13:56 | Outpatient (CLI) | payer MEDICAID, SELFPAY | END 2021-03-19 13:57 | disposition home or self-care (01) | LOC: WOUND 13:57 | PROVIDERS: PCP Family Medicine; Visit Provider Nurse Practitioner Family | DX: E11.621 Type 2 diabetes mellitus with foot ulcer (principal); L97.522 Non-pressure chronic ulcer of other part of left foot with fat layer exposed; F17.210 Nicotine dependence, cigarettes, uncomplicated | CPT/HCPCS: 11042 ==

== ENCOUNTER 2021-03-29 14:52 | Outpatient (CLI) | payer MEDICAID, SELFPAY | END 2021-03-29 14:53 | disposition home or self-care (01) | LOC: WOUND 14:55 | PROVIDERS: PCP Family Medicine; Visit Provider Thoracic Surgery (Cardiothoracic Vascular Surgery) | DX: I96 Gangrene, not elsewhere classified (principal); E11.621 Type 2 diabetes mellitus with foot ulcer; L97.522 Non-pressure chronic ulcer of other part of left foot with fat layer exposed; F17.210 Nicotine dependence, cigarettes, uncomplicated | CPT/HCPCS: 11042 ==

== ENCOUNTER 2021-04-12 13:58 | Outpatient (CLI) | payer MEDICAID, SELFPAY | END 2021-04-12 13:59 | disposition home or self-care (01) | LOC: WOUND 14:00 | PROVIDERS: PCP Family Medicine; Visit Provider Nurse Practitioner Family | DX: E11.621 Type 2 diabetes mellitus with foot ulcer (principal); L97.522 Non-pressure chronic ulcer of other part of left foot with fat layer exposed | CPT/HCPCS: 11042; 87070; 87176; 87205 ==

== ENCOUNTER 2021-04-19 13:51 | Outpatient (CLI) | payer MEDICAID, SELFPAY | END 2021-04-19 13:52 | disposition home or self-care (01) | LOC: WOUND 13:53 | PROVIDERS: PCP Family Medicine; Visit Provider Emergency Medicine | DX: E11.621 Type 2 diabetes mellitus with foot ulcer (principal); L97.522 Non-pressure chronic ulcer of other part of left foot with fat layer exposed; F17.210 Nicotine dependence, cigarettes, uncomplicated | CPT/HCPCS: 11042 ==

== ENCOUNTER 2021-05-03 15:00 | Outpatient (CLI) | payer MEDICAID, SELFPAY | END 2021-05-03 15:01 | disposition home or self-care (01) | LOC: WOUND 15:01 | PROVIDERS: PCP Family Medicine; Visit Provider Emergency Medicine | DX: E11.621 Type 2 diabetes mellitus with foot ulcer (principal); L97.522 Non-pressure chronic ulcer of other part of left foot with fat layer exposed; F17.210 Nicotine dependence, cigarettes, uncomplicated | CPT/HCPCS: 11042 ==

== ENCOUNTER 2021-05-17 13:41 | Outpatient (CLI) | payer MEDICAID, SELFPAY | END 2021-05-17 13:42 | disposition home or self-care (01) | LOC: WOUND 13:45 | PROVIDERS: PCP Family Medicine; Visit Provider Nurse Practitioner Family | DX: E11.621 Type 2 diabetes mellitus with foot ulcer (principal); L97.522 Non-pressure chronic ulcer of other part of left foot with fat layer exposed; F17.210 Nicotine dependence, cigarettes, uncomplicated | CPT/HCPCS: 11042 ==

== ENCOUNTER 2021-05-23 15:09 | Outpatient (CLI) | payer MEDICAID, SELFPAY | END 2021-05-23 15:10 | disposition home or self-care (01) | LOC: WOUND 15:10 | PROVIDERS: PCP Family Medicine; Visit Provider Thoracic Surgery (Cardiothoracic Vascular Surgery) | DX: E11.621 Type 2 diabetes mellitus with foot ulcer (principal); L97.512 Non-pressure chronic ulcer of other part of right foot with fat layer exposed; F17.210 Nicotine dependence, cigarettes, uncomplicated | CPT/HCPCS: 11042 ==

== ENCOUNTER 2021-06-06 14:03 | Outpatient (CLI) | payer MEDICAID, SELFPAY | END 2021-06-06 14:04 | disposition home or self-care (01) | LOC: WOUND 14:03 | PROVIDERS: PCP Family Medicine; Visit Provider Thoracic Surgery (Cardiothoracic Vascular Surgery) | DX: E11.621 Type 2 diabetes mellitus with foot ulcer (principal); L97.521 Non-pressure chronic ulcer of other part of left foot limited to breakdown of skin; I73.9 Peripheral vascular disease, unspecified; F17.210 Nicotine dependence, cigarettes, uncomplicated | CPT/HCPCS: 97597 ==

== ENCOUNTER 2021-06-06 21:49 | Emergency (ER) | payer MEDICAID, SELFPAY ==
[2021-06-06 21:58] VITALS: BP 157/89; PULSE 96; RESP 22; TEMP 36.4; O2SAT 94; BMI 41.5
--- NOTE | 2021-06-06 22:19 | W.ED.EYEPROB ---
HPI - Eye Problem General: Chief complaint: Eye Problems Stated complaint: L Eye Pain Had Surgery today Time Seen by Provider: 06/06/21 22:19 History of Present Illness: HPI Narrative: 60-year-old male patient comes in with pain to the left eye. Patient states that today he had a injection into his left eye for papilledema. Dr. Cortés had performed the procedure. Patient was then moved control the pain with pain medication at home. Review of Systems General: Reports: 10 or more systems reviewed and unremarkable except in HPI and below Eyes: Reports: eye discomfort PFSH ED PFSH: Medical History Acute on chronic heart failure with normal ejection fraction Altered mental state Anasarca Anasarca Ankylosing spondylitis Anxiety and depression CHF (congestive heart failure) Chronic heart failure with normal ejection fraction Chronic ulcer of left foot due to diabetes mellitus COPD (chronic obstructive pulmonary disease) Diabetes mellitus Hypertension Lymphadenopathy No pertinent family history Noncompliance with CPAP treatment Obstructive sleep apnea Opioid dependence Sepsis Sepsis due to undetermined organism Tobacco abuse Surgical History No pertinent past surgical history Social History Smoking and tobacco status: current every day smoker cigarettes Packs smoked per day: 2 Alcohol intake: never Physical Exam Const: COMMON NORMALS: no acute distress and patient oriented x3 GENERAL APPEARANCE: cooperative HENMT: COMMON NORMALS: normocephalic HEAD & SCALP: normal to inspection and normocephalic MOUTH: Normal oral and palatal mucosa present Eye: COMMON NORMALS: Equal, round and reactive pupils present VISUAL ACUITY: Yes acuity normal (Normal for patient) ALIGNMENT: Yes alignment normal CONJUNCTIVA: Yes conjunctival abnormal (Injected bilaterally) CORNEA: Yes fluorescein used (Mild subconjunctival hemorrhage.) PUPIL: Yes Equal, round and reactive pupils present OTHER: Herminio-Pen pressure noted 21. Neck/C-Spine: COMMON NORMALS: full ROM Lymph: LYMPHATIC: no lymphadenopathy noted Chest: COMMONS NORMALS: normal inspection of the chest Resp: COMMON NORMALS: normal respiratory effort EFFORT & INSPECTION: Yes able to speak in complete sentences Cardio: COMMON NORMALS: regular rate and regular rhythm RATE: regular rate RHYTHM: regular rhythm GI: COMMON NORMALS: non-tender Back/Pelvis: COMMON NORMALS: thoracic and lumbar spine normal to inspection Extremity: COMMON NORMALS: normal to inspection Neuro: COMMON NORMALS: patient oriented x3 and moves all extremities Psych: COMMON NORMALS: mental status grossly normal and cooperative Skin: COMMON NORMALS: no rashes or lesions noted GENERAL SKIN EXAM: no rashes or lesions noted Course Consultations: Consultation #1: Consulted with Dr. Cortés regarding patient's discomfort. Reported to him that patient had significant pain relief after use of tetracaine. Reviewed Herminio-Pen pressure at 21. He recommended we treat for an corneal abrasion with liquid tears. Recommend follow-up with the office in the morning for continued discomfort. Time: 22:30 Vital Signs: Vital signs: Vital Signs Temperature 97.6 F 06/06/21 21:58 Pulse Rate 85 06/06/21 23:21 Respiratory Rate 22 H 06/06/21 23:21 Blood Pressure 157/89 06/06/21 21:58 Pulse Oximetry 94 06/06/21 23:21 MDM - Eye Problem MDM Narrative: Medical decision making narrative: Patient comes in today for complaints of left eye pain. On exam patient had normal extraocular movement, some mild swelling to the eyelid, of mild subconjunctival hemorrhage, pain was relieved with tetracaine. Herminio-Pen pressure was at 21. Differential diagnosis includes acute glaucoma, corneal abrasion, pain due to post procedure. Reviewed exam with Dr. Cortés, film editor supervisor, he agreed to plan of care with liquid tear eyedrops and follow-up as needed. Discharge Plan Discharge Patient Disposition: Home Clinical Impression: Corneal abrasion Qualifiers: Encounter type: initial encounter Laterality: left Qualified Code(s): S05.02XA - Injury of conjunctiva and corneal abrasion without foreign body, left eye, initial encounter Condition: Stable Prescriptions: No Action insulin aspart U-100 [Novolog Flexpen U-100 Insulin] 100 unit/mL (3 mL) insulin pen 15 unit SUBCUT BID Qty: 30 RF: 3 Levemir FlexTouch U-100 Insuln 100 unit/mL (3 mL) insulin pen 50 unit SUBCUT DAILY Qty: 15 RF: 3 (DME) blood-glucose meter [Easy Touch Glucose Monitor] Misc See Rx Instructions .Route Qty: 1 RF: 3 (DME) EasyGluco Test Strip See Rx Instructions .Route Qty: 200 RF: 3 (DME) lancets [Easy Touch Lancets] 28 gauge misc See Rx Instructions .Route Qty: 200 RF: 3 dextroamphetamine-amphetamine 10 mg tablet 10 mg PO BID RF: 0 oxycodone 30 mg tablet 30 - 60 mg PO Q4H PRN (Reason: Pain) RF: 0 Fish Oil 120-180-500 mg Capsule 1 cap PO DAILY RF: 0 Discharge Orders: Discharge ED (Routine); Ordered 06/06/21 Ordered By: Rosendo De La Rosa Referrals: Vivek Dee DO [Primary Care Provider] - Discharge Diet: Usual diet Discharge Activity: Increase activity as tolerated Patient Instructions: Opioid Safety Activity Restrictions/Additional Instructions: Dr. Cortés recommended to use artificial tears to your eyes as needed for discomfort. Use hourly as needed. Follow-up with his office in the morning for continued complaints of pain. Return to the ER for new concerns. Coding Level of Care Code ED Operations Staff Specialist Security for Koby Amezcua
[2021-06-06] MEDS: tetracaine 0.5% Op Soln 4 mL Btl 1 DROP EYE-LEFT (22:25)
[2021-06-06] MEDS: artificial tears Op Soln 15 mL Btl 1 DROP EYE-LEFT (23:18)
[2021-06-06 23:21] VITALS: PULSE 85; RESP 22; O2SAT 94
== END 2021-06-06 23:26 | disposition home or self-care (01) ==
PROVIDERS: Emergency Provider Nurse Practitioner Family; PCP Family Medicine
DX: S05.02XA Injury of conjunctiva and corneal abrasion without foreign body, left eye, initial encounter (principal); Z79.899 Other long term (current) drug therapy; Z79.891 Long term (current) use of opiate analgesic; F17.210 Nicotine dependence, cigarettes, uncomplicated; E11.9 Type 2 diabetes mellitus without complications
CPT/HCPCS: 99283

== ENCOUNTER 2021-06-20 14:27 | Outpatient (CLI) | payer MEDICAID, SELFPAY | END 2021-06-20 14:28 | disposition home or self-care (01) | LOC: WOUND 14:30 | PROVIDERS: PCP Family Medicine; Visit Provider Thoracic Surgery (Cardiothoracic Vascular Surgery) | DX: E11.621 Type 2 diabetes mellitus with foot ulcer (principal); L97.522 Non-pressure chronic ulcer of other part of left foot with fat layer exposed; F17.210 Nicotine dependence, cigarettes, uncomplicated | CPT/HCPCS: 11042 ==

== ENCOUNTER 2021-06-22 19:38 | Emergency (ER) | payer MEDICAID, SELFPAY ==
[2021-06-22 20:02] VITALS: BP 170/52; PULSE 108; RESP 18; TEMP 37.3; O2SAT 95; BMI 41.5
[2021-06-22 20:55] VITALS: BP 166/84; PULSE 108; RESP 18; TEMP 37.3; O2SAT 94
--- NOTE | 2021-06-22 21:23 | XRR_ITS ---
PROCEDURE INFORMATION: Exam: XR Chest Exam date and time: 06/22/2021 9:23 PM Age: 60 years old Clinical indication: Shortness of breath; Additional info: SOB TECHNIQUE: Imaging protocol: XR of the chest. Views: 1 view. COMPARISON: CR XR chest 1V portable [id number] 02/27/2021 3:56 PM FINDINGS: Lungs: There is mild prominence and indistinctness of the pulmonary vasculature and increased interstitial opacities present bilaterally, findings suggesting pulmonary edema. Pleural spaces: Unremarkable. No pleural effusion. No pneumothorax. Heart/Mediastinum: Unremarkable. No cardiomegaly. Bones/joints: Unremarkable. XR/XR chest 1V portable [id number] IMPRESSION: Mildly prominent and indistinct pulmonary vasculature with bilateral increased interstitial opacities, findings suggesting pulmonary edema. Radiation Dose CTDIVOL = (mGy): DLP = (mGy-cm)
--- NOTE | 2021-06-22 21:25 | ECG_ITS ---
[facility] Test Date: 2021-06-22 Pat Name: Mark Katz Department: Room: Gender: Male Clinical Staff Anesthesiologist: : 1960 Requested By: Azeem Lucero Order Number: [id number] Pelon MD: Corinna Castro M.D. Measurements Intervals [place] Rate: 99 P: 62 PA: 142 QRS: -33 QRSD: 113 T: 79 QT: 356 QTc: 458 Interpretive Statements SINUS RHYTHM LEFT AXIS DEVIATION [QRS AXIS < -30] MINIMAL VOLTAGE CRITERIA FOR LVH, CONSIDER NORMAL VARIANT POSSIBLE SEPTAL MYOCARDIAL INFARCTION , OF INDETERMINATE AGE Compared to ECG 02/27/2021 18:07:50 Myocardial infarct finding now present Sinus tachycardia no longer present T-wave abnormality no longer present Electronically Signed On 06-24-2021 13:22:19 COMPLIANCE DIRECTOR by Corinna Castro M.D. [id number]
[2021-06-22] MEDS: dexamethasone 4 mg/mL INJ 6 MG IVP (21:41)
[2021-06-22] MEDS: sodium chloride 0.9% 1,000 ML 150 ML IV (21:41)
[2021-06-22] MEDS: ondansetron 2 mg/ML SDV 2 mL 4 MG IV (21:41)
[2021-06-22] MEDS: acetaminophen 325 mg Tablet 650 MG PO (21:41)
[2021-06-22 21:42] VITALS: RESP 22
[2021-06-22] MEDS: morphine 4 mg/mL SDV 1 mL IVP (21:42)
[2021-06-22 21:52] LABS: Basophils % 0.2 %; Eosinophils # 0.1 10^3/uL (0.0-0.8); Eosinophils % 0.4 %; Hematocrit 39.3 % (42.0-52.0); Hemoglobin 12.6 g/dL (11.7-16.6); Lymphocytes # 0.8 10^3/uL (0.8-4.8); Lymphocytes % 4.3 %; Mean Corpuscular HGB Conc 32.1 g/dL (30.0-36.0); Mean Corpuscular Hemoglobin 30.7 pg (28.0-34.0); Mean Corpuscular Volume 95.9 fl (80-94); Mean Platelet Volume 12.4 fL (7.4-10.4); Monocytes # 0.8 10^3/uL (0.2-0.9); Neutrophils # 17.03 10^3/uL (1.8-7.7); Neutrophils % 90.1 %; Nucleated Red Blood Cells % 0 %; Platelet Count 157 10^3/cmm (130-400); Red Cell Distribution Width 12.5 % (12.1-15.1); White Blood Count 18.9 10^3/uL (4.0-10.0)
[2021-06-22 21:57] LABS: INR 1.07 (0.8-1.2)
[2021-06-22 21:58] LABS: Partial Thromboplastin Time 35.5 SECONDS (23.9-36.7)
[2021-06-22 22:00] LABS: Lactic Sepsis W/Reflex 1.6 mmol/L (0.5-2.2)
[2021-06-22 22:01] LABS: D Dimer 1.68 ug/mIFEU (0-0.59)
[2021-06-22 22:01] LABS: Add Urine Microscopic? YES; Bilirubin Urine Neg (Negative); Blood Urine 3+ (Negative); Glucose Urine UA 4+ (Normal); Ketones Urine Negative (Negative); Leukocyte Esterase Urine Negative (Negative); Nitrate Urine Negative (Negative); Protein Urine 3+ (Negative); Urine Appearance Clear (CLEAR); Urine Color Yellow (Yellow); Urobilinogen Urine 4 mg/dL (Negative); pH Urine 7 (5-7)
[2021-06-22 22:04] LABS: ABG PCO2 39.7 mmHg (35-45); ABG PH Result 7.43 (7.35-7.45); Arterial Blood Gas Hematocrit 39.7 % (42-52); Base Excess ABG 2.2 mmol/L (-2.0-2.0); Blood Gas Allen Test Pos; Blood Gas Sample Site Radial, left; Blood Gas Sample Type Arterial; HCO3 ABG 26.6 mmol/L (22-26); PO2 ABG 73.4 mmHg (80.0-100.0)
[2021-06-22 22:06] LABS: Add Urine Culture? No; Amorphous Sediment Urine 1+ /hpf; Bacteria Urine 2+ /hpf; Hyaline Casts Urine 0-4 /lpf; RBC Urine 80-100 /hpf (0-2); Squamous Epithelial Cell Urine 15-25 /hpf (0-5); WBC Urine 0-4 /hpf (0-5)
[2021-06-22 22:06] LABS: SARS Covid-2 Antigen Negative (Negative)
[2021-06-22 22:10] LABS: NT Pro B Type Natriuretic Pept 1182 pg/mL (0-125); Procalcitonin 0.97 ng/mL (0-0.5)
[2021-06-22 22:17] LABS: Troponin(5th) Baseline 105 ng/L (0-15)
[2021-06-22 22:21] LABS: Alanine Aminotransferase 23 U/L (0-41); Albumin Level 2.6 g/dL (3.5-5.2); Alkaline Phosphatase 141 IU/L (40-130); Aspartate Amino Transferase 17 U/L (0-40); Blood Urea Nitrogen 23 mg/dL (8-23); Carbon Dioxide 24 mmol/L (22-29); Chloride 97 mmol/L (98-107); Globulin 2.8 g/dL (1.3-4.6); Glomerular Filtration Rate 61.3 mL/min (90-130); Glucose 276 mg/dL (65-115); Lactate Dehydrogenase 173 U/L (135-225); Osmolality Calculated 288 mOsm/kg (285-295); Sodium 132 mmol/L (136-145); Total Bilirubin 0.7 mg/dL (0.15-1.2); Total Protein 5.4 g/dL (6.6-8.7)
--- NOTE | 2021-06-22 23:25 | ECG_ITS ---
[facility] Test Date: 2021-06-23 Pat Name: Mark Katz Department: Room: Gender: Male Supply Chain Analyst: : 1960 Requested By: Azeem Lucero Order Number: [id number] Bird MD: Corinna Castro M.D. Measurements Intervals [place] Rate: 90 P: 57 IN: 145 QRS: -30 QRSD: 94 T: 69 QT: 371 QTc: 456 Interpretive Statements SINUS RHYTHM BORDERLINE LEFT AXIS DEVIATION [QRS AXIS < -20] MINIMAL VOLTAGE CRITERIA FOR LVH, CONSIDER NORMAL VARIANT [MEETS CRITERIA IN ONE OF: R(aVL), S(V1), R(V5), R(V5/V6)+S(V1)] NONSPECIFIC T-WAVE ABNORMALITY Compared to ECG 06/22/2021 21:38:31 T-wave abnormality now present Myocardial infarct finding no longer present Electronically Signed On 06-24-2021 13:27:38 WEDGER AND GLUER by Corinna Castro M.D. [id number]
--- NOTE | 2021-06-22 23:35 | CTR_ITS ---
PROCEDURE INFORMATION: Exam: CTA Chest With Contrast Exam date and time: 06/22/2021 11:35 PM Age: 60 years old Clinical indication: Fever and shortness of breath; Patient HX: SOB with fever. Elevated d dimer. [place] covid pcr. Best exam obtained due to pressure limiting of iv. ; Additional info: SOB, hypoxia TECHNIQUE: Imaging protocol: Computed tomographic angiography of the chest with contrast. 3D rendering (Not supervised by radiologist): MIP and/or 3D reconstructed images were created by the technologist. Radiation optimization: All CT scans at this facility use at least one of these dose optimization techniques: automated exposure control; mA and/or kV adjustment per patient size (includes targeted exams where dose is matched to clinical indication); or iterative reconstruction. Contrast material: VISI 320; Contrast volume: 64 ml; Contrast route: INTRAVENOUS (IV); COMPARISON: CT angio chest w abd pel w con 02/27/2021 8:05 PM RADIATION DOSE METRICS: Total DLP (mGy-cm): 588.29 FINDINGS: Pulmonary arteries: Normal. No pulmonary emboli. Aorta: Unremarkable. No aortic aneurysm. No aortic dissection. Lungs: A calcification is seen in the right middle lobe compatible with a calcified granuloma. Pleural spaces: Unremarkable. No pneumothorax. No pleural effusion. Heart: Calcifications are seen in the coronary arteries. Lymph nodes: Unremarkable. No enlarged lymph nodes. Gallbladder and bile ducts: Status post cholecystectomy. Bones/joints: Unremarkable. No acute fracture. Soft tissues: Unremarkable. Other findings: Strandy opacities are seen in the perinephric fascia bilaterally likely representing chronic scarring. CT/CT angio chest [place] prot [id number] IMPRESSION: There are no acute chest findings. Radiation Dose CTDIVOL = (mGy): DLP = 588.29 (mGy-cm)
[2021-06-22] MEDS: iodixanol 320 mg/mL 100mL Btl IV (23:54)
[2021-06-23 00:13] LABS: Troponin 5 2HR 102.7 ng/L (0-15); Troponin 5 2HR Delta -2.3 ABS# (0-10)
--- NOTE | 2021-06-23 01:16 | W.ED.COVID ---
HPI - COVID General: Chief Complaint: COVID symptoms Stated Complaint: Fever\SOB\Weakness\N\V Time Seen by Provider: 06/22/21 20:38 Triage information: Has fever, cough or shortness of breath. No known COVID + exposure last 14 days History of Present Illness: HPI Narrative: 60-year-old male with no known exposure to COVID-19. He is nonvaccinated. He presents with 2 days of fever, chills, nausea, vomiting, no diarrhea. Increasing shortness of breath over the past couple of days. He has body aches and headache as well. MD complaint: has COVID symptoms Prior covid testing: no COVID 19 common symptoms: positive fever(s), chills, cough, non-productive cough, dyspnea, fatigue, body aches, headache(s), nasal congestion, nausea and vomiting; negative diarrhea COVID 19 other sytmptoms: negative chest pain Onset (ago): day(s) (2) Severity: moderate Pertinent comorbid conditions: diabetes Treatment prior to arrival: aspirin COVID Results: SARS-CoV-2 Antigen (Rapid) Negative (Negative) 06/22/21 21:25 06/22/21 SARS-CoV-2 RNA (RT-PCR) Pending 06/22/21 23:35 06/22/21 Nasal/Oral Coronavirus 2019 PCR Not detected 02/27/21 18:18 02/27/21 Review of Systems Const: Reports: fever(s), chills, body aches and fatigue ENMT: Reports: nasal congestion Card: Denies: chest pain Resp: Reports: dyspnea and non-productive cough GI: Reports: nausea and vomiting; Denies: diarrhea Neuro: Reports: headache(s) PFSH ED PFSH: Medical History Acute on chronic heart failure with normal ejection fraction Altered mental state Anasarca Anasarca Ankylosing spondylitis Anxiety and depression CHF (congestive heart failure) Chronic heart failure with normal ejection fraction Chronic ulcer of left foot due to diabetes mellitus COPD (chronic obstructive pulmonary disease) Diabetes mellitus Hypertension Lymphadenopathy No pertinent family history Noncompliance with CPAP treatment Obstructive sleep apnea Opioid dependence Sepsis Sepsis due to undetermined organism Tobacco abuse Surgical History No pertinent past surgical history Social History Smoking and tobacco status: current every day smoker cigarettes Packs smoked per day: 2 Alcohol intake: never Physical Exam Const: GENERAL APPEARANCE: cooperative, in distress, ill appearing and frail appearing NUTRITIONAL APPEARANCE: obese ORIENTATION/CONSCIOUSNESS: Yes awake, Yes oriented to person, Yes oriented to place and Yes oriented to time HENMT: COMMON NORMALS: normocephalic HEAD & SCALP: normocephalic Chest: COMMONS NORMALS: normal inspection of the chest Resp: EFFORT & INSPECTION: Yes tachypneic, Yes labored, No retractions and Yes uses accessory muscles AUSCULTATION: rhonchi Cardio: COMMON NORMALS: regular rate and regular rhythm RATE: regular rate RHYTHM: regular rhythm GI: COMMON NORMALS: Normal to inspection, nondistended, normoactive bowel sounds present and Soft to palpation PALPATION: Yes Soft to palpation Extremity: NARRATIVE EXTREMITY EXAM: Changes of chronic cellulitis with stasis dermatitis to the bilateral lower extremities. Significant chronic edema. Plantar left forefoot reveals a half dollar size diabetic skin ulceration with rolled border, no significant streaking or warmth, no drainage. Neuro: SENSORIUM/ORIENTATION: Yes oriented to person, Yes oriented to place and Yes oriented to time Course Vital Signs: Vital signs: Vital Signs Temperature 99.2 F 06/22/21 20:55 Pulse Rate 80 06/23/21 03:40 Respiratory Rate 18 06/23/21 03:40 Blood Pressure 139/86 06/23/21 03:40 Pulse Oximetry 96 06/23/21 03:40 MDM - COVID MDM Narrative: Medical decision making narrative: White blood cell count of 19 with a bit of left shift. CRP and pro calcitonin are both elevated as well. Sodium is 132. Hemoglobin is 12.6. Chest x-ray showed a probable interstitial fluid bilaterally. D-dimer was elevated significantly. CTA does not reveal any lung findings. Follow-through with the belly is negative as well. Patient has hematuria, but no evidence of infection there. His rapid COVID-19 is negative. He does have chronic cellulitis/stasis dermatitis to the bilateral lower extremities, with an ulceration on the left plantar foot, but it does not look acutely inflamed or infected. Despite that, it is a likely source of infection. Discussed admission with the patient. He would rather go home. He knows the risks. He will be given a dose of IV vancomycin here, and allowed home on doxycycline. Lab Data: Labs: Lab Results 06/22/21 06/22/21 06/22/21 21:00 21:00 21:00 WBC 18.9 10^3/uL H 10 ^3/uL (4.0-10.0) RBC 4.10 10^6/uL 10^6 /uL (4.1-5.3) Hgb 12.6 g/dL g/dL (11.7-16.6) Hct 39.3 % L % (42.0-52.0) MCV 95.9 fl H fl (80-94) MCH 30.7 pg pg (28.0-34.0) MCHC 32.1 g/dL g/dL (30.0-36.0) RDW 12.5 % % (12.1-15.1) Plt Count 157 10^3/cmm 10^3 /cmm (130-400) MPV 12.4 fL H fL (7.4-10.4) Neut % (Auto) 90.1 % % Lymph % (Auto) 4.3 % % Gonzales % (Auto) 4.0 % % Eos % (Auto) 0.4 % % Baso % (Auto) 0.2 % % Neut # (Auto) 17.03 10^3/uL H 1 0^3/uL (1.8-7.7) Lymph # (Auto) 0.8 10^3/uL 10^3/ uL (0.8-4.8) Gonzales # (Auto) 0.8 10^3/uL 10^3/ uL (0.2-0.9) Eos # (Auto) 0.1 10^3/uL 10^3/ uL (0.0-0.8) Baso # (Auto) 0.0 10^3/uL 10^3/ uL (0.0-0.1) Nucleated RBC % (a uto) 0 % % Nucleated RBCs # 0.0 /100WBC /100W BC PT 14.20 SECONDS SEC ONDS (12.1-14.9) INR 1.07 (0.8-1.2) APTT 35.5 SECONDS SECO NDS (23.9-36.7) D-Dimer 1.68 ug/mIFEU H u g/mIFEU (0-0.59) Specimen Type Sample Site ABG pH ABG pCO2 ABG pO2 ABG HCO3 ABG Base Excess Sp Test Hematocrit O2 Delivery Device Retail Pharmacy Technician ID Sodium 132 mmol/L L mmol /L (136-145) Potassium 4.0 mmol/L mmol/L (3.5-5.1) Chloride 97 mmol/L L mmol/ L (98-107) Carbon Dioxide 24 mmol/L mmol/L (22-29) Anion Gap 15.0 (5-19) BUN 23 mg/dL mg/dL (8-23) Creatinine 1.2 mg/dL mg/dL (0.7-1.2) GFR Calculation 61.3 mL/min L mL/ min (90-130) Glucose 276 mg/dL H mg/dL (65-115) Calculated Osmolal ity 288 mOsm/kg mOsm/ kg (285-295) Lactic Acid Calcium 8.0 mg/dL L mg/dL (8.5-10.5) Total Bilirubin 0.7 mg/dL mg/dL (0.15-1.2) AST 17 U/L U/L (0-40) ALT 23 U/L U/L (0-41) Alkaline Phosphata se 141 IU/L H IU/L (40-130) Lactate Dehydrogen ase 173 U/L U/L (135-225) Troponin T Baselin e Troponin T 120 Min [place] Delta Troponin T C-Reactive Protein 197.0 mg/L H mg/L (0.0-4.9) NT-Pro-B Natriuret Pep 1182 pg/mL H pg/m L (0-125) Total Protein 5.4 g/dL L g/dL (6.6-8.7) Albumin 2.6 g/dL L g/dL (3.5-5.2) Globulin 2.8 g/dL g/dL (1.3-4.6) Procalcitonin 0.97 ng/mL H ng/m L (0-0.5) Urine Color Urine Appearance Urine pH Ur Specific Gravit y Urine Protein Urine Glucose (UA) Urine Ketones Urine Blood Urine Nitrate Urine Bilirubin Urine Urobilinogen Ur Leukocyte Michelle ase Urine RBC Urine WBC Ur Squamous Epith Cells Amorphous Sediment Urine Bacteria Hyaline Casts SARS-CoV-2 Ag (Rap id) 06/22/21 06/22/21 06/22/21 21:00 21:00 21:25 WBC RBC Hgb Hct MCV MCH MCHC RDW Plt Count MPV Neut % (Auto) Lymph % (Auto) Gonzales % (Auto) Eos % (Auto) Baso % (Auto) Neut # (Auto) Lymph # (Auto) Gonzales # (Auto) Eos # (Auto) Baso # (Auto) Nucleated RBC % (a uto) Nucleated RBCs # PT INR APTT D-Dimer Specimen Type Sample Site ABG pH ABG pCO2 ABG pO2 ABG HCO3 ABG Base Excess Sp Test Hematocrit O2 Delivery Device Retail Pharmacy Technician ID Sodium Potassium Chloride Carbon Dioxide Anion Gap BUN Creatinine GFR Calculation Glucose Calculated Osmolal ity Lactic Acid 1.6 mmol/L mmol/L (0.5-2.2) Calcium Total Bilirubin AST ALT Alkaline Phosphata se Lactate Dehydrogen ase Troponin T Baselin e 105 ng/L H* ng/L (0-15) Troponin T 120 Min [place] Delta Troponin T C-Reactive Protein NT-Pro-B Natriuret Pep Total Protein Albumin Globulin Procalcitonin Urine Color Urine Appearance Urine pH Ur Specific Gravit y Urine Protein Urine Glucose (UA) Urine Ketones Urine Blood Urine Nitrate Urine Bilirubin Urine Urobilinogen Ur Leukocyte Michelle ase Urine RBC Urine WBC Ur Squamous Epith Cells Amorphous Sediment Urine Bacteria Hyaline Casts SARS-CoV-2 Ag (Rap id) Negative (Negative) 06/22/21 06/22/21 06/22/21 21:35 21:50 23:40 WBC RBC Hgb Hct MCV MCH MCHC RDW Plt Count MPV Neut % (Auto) Lymph % (Auto) Gonzales % (Auto) Eos % (Auto) Baso % (Auto) Neut # (Auto) Lymph # (Auto) Gonzales # (Auto) Eos # (Auto) Baso # (Auto) Nucleated RBC % (a uto) Nucleated RBCs # PT INR APTT D-Dimer Specimen Type Arterial Sample Site Radial, left ABG pH 7.43 (7.35-7.45) ABG pCO2 39.7 mmHg mmHg (35-45) ABG pO2 73.4 mmHg L mmHg (80.0-100.0) ABG HCO3 26.6 mmol/L H mmo l/L (22-26) ABG Base Excess 2.2 mmol/L H mmol /L (-2.0-2.0) Sp Test Pos Hematocrit 39.7 % L % (42-52) O2 Delivery Device None Retail Pharmacy Technician ID [id number] Sodium Potassium Chloride Carbon Dioxide Anion Gap BUN Creatinine GFR Calculation Glucose Calculated Osmolal ity Lactic Acid Calcium Total Bilirubin AST ALT Alkaline Phosphata se Lactate Dehydrogen ase Troponin T Baselin e Troponin T 120 Min [place] 102.7 ng/L H ng/L (0-15) Delta Troponin T -2.3 ABS# L ABS# (0-10) C-Reactive Protein NT-Pro-B Natriuret Pep Total Protein Albumin Globulin Procalcitonin Urine Color Yellow (Yellow) Urine Appearance Clear (CLEAR) Urine pH 7 (5-7) Ur Specific Gravit y 1.010 (1.005-1.030) Urine Protein 3+ H (Negative) Urine Glucose (UA) 4+ H (Normal) Urine Ketones Negative (Negative) Urine Blood 3+ H (Negative) Urine Nitrate Negative (Negative) Urine Bilirubin Neg (Negative) Urine Urobilinogen 4 mg/dL H mg/dL (Negative) Ur Leukocyte Michelle ase Negative (Negative) Urine RBC 80-100 /hpf H /hp f (0-2) Urine WBC 0-4 /hpf H /hpf (0-5) Ur Squamous Epith Cells 15-25 /hpf H /hpf (0-5) Amorphous Sediment 1+ /hpf /hpf Urine Bacteria 2+ /hpf H /hpf (NONE) Hyaline Casts 0-4 /lpf H /lpf SARS-CoV-2 Ag (Rap id) COVID Results: SARS-CoV-2 Antigen (Rapid) Negative (Negative) 06/22/21 21:25 06/22/21 SARS-CoV-2 RNA (RT-PCR) Pending 06/22/21 23:35 06/22/21 Nasal/Oral Coronavirus 2019 PCR Not detected 02/27/21 18:18 02/27/21 Discharge Plan Discharge Patient Disposition: Home Clinical Impression: Acute febrile illness Cellulitis of leg Qualifiers: Laterality: unspecified laterality Qualified Code(s): L03.119 - Cellulitis of unspecified part of limb Condition: Stable Prescriptions: New doxycycline hyclate 100 mg capsule 100 mg PO BID 14 Days Qty: 28 RF: 0 No Action insulin aspart U-100 [Novolog Flexpen U-100 Insulin] 100 unit/mL (3 mL) insulin pen 15 unit SUBCUT BID Qty: 30 RF: 3 Levemir FlexTouch U-100 Insuln 100 unit/mL (3 mL) insulin pen 50 unit SUBCUT DAILY Qty: 15 RF: 3 (DME) blood-glucose meter [Easy Touch Glucose Monitor] Misc See Rx Instructions .Route Qty: 1 RF: 3 (DME) EasyGluco Test Strip See Rx Instructions .Route Qty: 200 RF: 3 (DME) lancets [Easy Touch Lancets] 28 gauge misc See Rx Instructions .Route Qty: 200 RF: 3 dextroamphetamine-amphetamine 10 mg tablet 10 mg PO BID RF: 0 oxycodone 30 mg tablet 30 - 60 mg PO Q4H PRN (Reason: Pain) RF: 0 Fish Oil 120-180-500 mg Capsule 1 cap PO DAILY RF: 0 Discharge Orders: Discharge ED (Routine); Ordered 06/23/21 Ordered By: Azeem Price Referrals: Vivek Dee, [Primary Care Provider] - 1-3 days Discharge Diet: Advance as tolerated Discharge Activity: Increase activity as tolerated Patient Instructions: Cellulitis (ED) Activity Restrictions/Additional Instructions: Follow-up with your doctor on Friday. Antibiotics as directed. Treat temperatures with Tylenol at appropriate doses. Return for worsening redness, swelling, pain despite treatment, development of shortness of breath, continued nausea or vomiting, any other concerning symptoms Coding Level of Care Code ED Behavioral Health Aide for Koby Fwd Exam Detailed
[2021-06-23] MEDS: vancomycin 1,000 MG in sodium chloride 0.9% 250 ML 250 MG IV (02:04)
[2021-06-23 03:09] VITALS: O2SAT 92
--- NOTE | 2021-06-23 03:33 | PC.NURSE ---
Pt contacted his practice assistant, Enoch, to pick him up at discharge.
[2021-06-23 03:40] VITALS: BP 139/86; PULSE 80; RESP 18; O2SAT 96
[2021-06-24 19:56] LABS: Quest SARS-CoV-2 RNA NOT DETECTED (NOT DETECTED)
--- NOTE | 2021-06-25 13:54 | PC.NURSE ---
Patient notified of negative COVID test
== END 2021-06-23 03:48 | disposition home or self-care (01) ==
PROVIDERS: Emergency Provider Emergency Medicine; PCP Family Medicine
DX: R50.9 Fever, unspecified (principal); L03.119 Cellulitis of unspecified part of limb; Z79.4 Long term (current) use of insulin; I11.0 Hypertensive heart disease with heart failure; I50.9 Heart failure, unspecified; J44.9 Chronic obstructive pulmonary disease, unspecified; E11.9 Type 2 diabetes mellitus without complications; F17.210 Nicotine dependence, cigarettes, uncomplicated; Z20.822 Contact with and (suspected) exposure to COVID-19
CPT/HCPCS: 36600; 71045; 71275; 80053; 81001; 82803; 83605; 83615; 83880; 84145; 84484; 85025; 85378; 85610; 85730; 86140; 87040; 87426; 87635; 93005; 96365; 96375; 99284; J1100; J2270; J2405; J3370; J7030; J7050; Q9967

== ENCOUNTER 2021-07-04 08:21 | Outpatient (CLI) | payer MEDICAID, SELFPAY ==
--- NOTE | 2021-07-04 08:28 | NM_ITS ---
WS: [id number] THREE-PHASE BONE SCAN HISTORY: TYPE II DM W/FOOT ULCER COMPARISON: 02/16/2009, LEFT foot radiograph 07/04/2021 Patient is is injected with 24.1 mCi Tc99m HDP intravenously. Immediate angiographic phase imaging is performed over the area of concern. Static blood pool imaging also performed. Two-hour whole-body sc intigrams performed in anterior and posterior projections. Additional large field of view imaging sub mitted as necessary. There is mild hyperemia involving the lateral distal foot near the fifth metatarsal head. There is in creased uptake on both the blood pool and delayed imaging. The increased uptake is only moderate. The abnormality appears to be centered near the fifth metatarsal head and may be the proximal phalanx of the fifth toe. Mild RIGHT AC joint arthritis. Ribs are normal. Mild bilateral osteoarthritic disease at the knees. N ormal soft tissue uptake. NM/NM bone 3 phase [id number] IMPRESSION: 1. Abnormal three-phase uptake involving the LEFT fifth metatarsal head and ma y be the proximal phalanx highly suspicious for cellulitis and osteomyelitis. 2. Degenerative osteoarthritic changes at the knees.
--- NOTE | 2021-07-04 11:34 | XR_ITS ---
WS: [id number] LEFT FOOT: 3 VIEW(S) TECHNIQUE: AP, oblique and lateral. HISTORY: BONE SCAN COMPARISON COMPARISON: 02/26/2021 No acute fracture or dislocation. There is a soft tissue ulceration extending from the lateral foot at the level of the fifth metatarsa l head towards the metatarsal. Soft tissue ulceration measures 12 x 4 mm. Very slight loss of the cor tical thickening over the lateral metatarsal head. Early changes of osteomyelitis are suspected. There is extensive soft tissue edema and swelling surrounding the foot. XR/XR foot LT min 3V* [id number] IMPRESSION: 1. Soft tissue ulceration tract measuring 12 x 4 mm just lateral to the fifth metatarsal head. Suspect early changes of mild osteomyelitis at the metatarsal head. These findings were confirmed by three-phase bone scan imaging. 2. Large amount of soft tissue edema surrounding the foot.
== END 2021-07-04 08:22 | disposition home or self-care (01) ==
LOC: RAD 08:23
PROVIDERS: PCP Family Medicine; Visit Provider Thoracic Surgery (Cardiothoracic Vascular Surgery)
DX: E11.621 Type 2 diabetes mellitus with foot ulcer (principal)
CPT/HCPCS: 73630; 78315; A9561

== ENCOUNTER 2021-07-04 13:55 | Outpatient (CLI) | payer MEDICAID, SELFPAY | END 2021-07-04 13:56 | disposition home or self-care (01) | LOC: WOUND 13:56 | PROVIDERS: PCP Family Medicine; Visit Provider Nurse Practitioner Family | DX: I96 Gangrene, not elsewhere classified (principal); E11.621 Type 2 diabetes mellitus with foot ulcer; L97.522 Non-pressure chronic ulcer of other part of left foot with fat layer exposed; F17.210 Nicotine dependence, cigarettes, uncomplicated; I87.2 Venous insufficiency (chronic) (peripheral) | CPT/HCPCS: 11042 ==

== ENCOUNTER → 2021-07-16 14:12 | Outpatient (BNVA) | payer MEDICAID, SELFPAY | PROVIDERS: PCP Family Medicine; Visit Provider Internal Medicine | DX: E11.65 Type 2 diabetes mellitus with hyperglycemia (principal); E11.319 Type 2 diabetes mellitus with unspecified diabetic retinopathy without macular edema; Z79.4 Long term (current) use of insulin | CPT/HCPCS: 99214 ==

== ENCOUNTER 2021-07-18 15:25 | Outpatient (CLI) | payer MEDICAID, SELFPAY | END 2021-07-18 15:26 | disposition home or self-care (01) | LOC: WOUND 15:28 | PROVIDERS: PCP Family Medicine; Visit Provider Thoracic Surgery (Cardiothoracic Vascular Surgery) | DX: I89.0 Lymphedema, not elsewhere classified (principal); F17.210 Nicotine dependence, cigarettes, uncomplicated | CPT/HCPCS: 99212 ==

== ENCOUNTER → 2021-07-30 14:28 | Outpatient (BNVA) | payer MEDICAID, SELFPAY | PROVIDERS: PCP Family Medicine; Visit Provider Internal Medicine | DX: E11.65 Type 2 diabetes mellitus with hyperglycemia (principal); E11.319 Type 2 diabetes mellitus with unspecified diabetic retinopathy without macular edema; K08.89 Other specified disorders of teeth and supporting structures; R11.0 Nausea; Z79.4 Long term (current) use of insulin | CPT/HCPCS: 99214 ==

== ENCOUNTER 2021-07-30 15:59 | Outpatient (CLI) | payer MEDICAID, SELFPAY ==
[2021-07-30 17:08] LABS: Alanine Aminotransferase 25 U/L (0-41); Albumin Level 2.1 g/dL (3.5-5.2); Alkaline Phosphatase 181 IU/L (40-130); Anion Gap 15.9 (5-19); Aspartate Amino Transferase 18 U/L (0-40); Blood Urea Nitrogen 20 mg/dL (8-23); Calcium 7.6 mg/dL (8.5-10.5); Carbon Dioxide 22 mmol/L (22-29); Chloride 101 mmol/L (98-107); Chol HDL Ratio 4.75 mg/dL (1.0-5.00); Cholesterol 114 mg/dL (0-200); Globulin 3.8 g/dL (1.3-4.6); Glucose 232 mg/dL (65-115); HDL Cholesterol 24 mg/dL (60-100); LDL Cholesterol Calculated 64 mg/dL (50-129); LDL HDL Ratio 2.67 RATIO (0.00-3.22); Osmolality Calculated 290 mOsm/kg (285-295); Potassium 3.9 mmol/L (3.5-5.1); Sodium 135 mmol/L (136-145); Total Bilirubin 0.3 mg/dL (0.15-1.2); Total Protein 5.9 g/dL (6.6-8.7); Triglycerides 131 mg/dL (0-150)
[2021-07-30 17:15] LABS: Estmated Average Glucose 243; Hemoglobin A1C 10.1 % (4.0-6.0)
== END 2021-07-30 16:00 | disposition home or self-care (01) ==
LOC: LAB 16:01
PROVIDERS: PCP Family Medicine; Visit Provider Internal Medicine
DX: E11.65 Type 2 diabetes mellitus with hyperglycemia (principal)
CPT/HCPCS: 80053; 80061; 83036; 83519; 83525; 86337

== ENCOUNTER 2021-08-01 14:07 | Outpatient (CLI) | payer MEDICAID, SELFPAY | END 2021-08-01 14:08 | disposition home or self-care (01) | LOC: WOUND 14:10 | PROVIDERS: PCP Family Medicine; Visit Provider Nurse Practitioner Family | DX: E11.621 Type 2 diabetes mellitus with foot ulcer (principal); L97.522 Non-pressure chronic ulcer of other part of left foot with fat layer exposed; F17.210 Nicotine dependence, cigarettes, uncomplicated | CPT/HCPCS: 11042 ==

== ENCOUNTER 2021-08-13 14:01 | Outpatient (CLI) | payer MEDICAID, SELFPAY | END 2021-08-13 14:02 | disposition home or self-care (01) | LOC: WOUND 14:02 | PROVIDERS: PCP Family Medicine; Visit Provider Thoracic Surgery (Cardiothoracic Vascular Surgery) | DX: I96 Gangrene, not elsewhere classified (principal); E11.621 Type 2 diabetes mellitus with foot ulcer; L97.521 Non-pressure chronic ulcer of other part of left foot limited to breakdown of skin; L97.512 Non-pressure chronic ulcer of other part of right foot with fat layer exposed; L97.419 Non-pressure chronic ulcer of right heel and midfoot with unspecified severity; F17.210 Nicotine dependence, cigarettes, uncomplicated; I87.2 Venous insufficiency (chronic) (peripheral) | CPT/HCPCS: 11042; 97597 ==

== ENCOUNTER 2021-08-13 15:15 | Outpatient (CLI) | payer MEDICAID, SELFPAY ==
--- NOTE | 2021-08-13 15:33 | XR_ITS ---
WS: [id number] FOOT RIGHT TECHNIQUE: 3 views of the right foot CLINICAL INFORMATION: TYPE II DIABETES MELLITUS WITH FOOT ULCER COMPARISON: None. FINDINGS: Diffuse soft tissue edema. Slight hallux valgus. Osteopenia. Hammertoe deformities. Normal metatarsal s. Degenerative narrowing at the first MTP. Small erosions involving the metatarsal heads. No acute f ractures. Plantar and Achilles calcaneal spurring. Mild pes planus. XR/XR foot RT min 3V* [id number] IMPRESSION: 1. Diffuse soft tissue edema worse about the dorsal foot. No definite visualiz ed osteomyelitis. 2. No acute fractures. 3. Osteopenia.
== END 2021-08-13 15:16 | disposition home or self-care (01) ==
PROVIDERS: PCP Family Medicine; Visit Provider Thoracic Surgery (Cardiothoracic Vascular Surgery)
DX: E11.621 Type 2 diabetes mellitus with foot ulcer (principal); R60.0 Localized edema; M85.871 Other specified disorders of bone density and structure, right ankle and foot
CPT/HCPCS: 73630

== ENCOUNTER 2021-08-27 13:49 | Outpatient (CLI) | payer MEDICAID, SELFPAY | END 2021-08-27 13:50 | disposition home or self-care (01) | LOC: WOUND 13:49 | PROVIDERS: PCP Family Medicine; Visit Provider Nurse Practitioner Family | DX: I96 Gangrene, not elsewhere classified (principal); E11.621 Type 2 diabetes mellitus with foot ulcer; L97.512 Non-pressure chronic ulcer of other part of right foot with fat layer exposed; L97.522 Non-pressure chronic ulcer of other part of left foot with fat layer exposed; L97.411 Non-pressure chronic ulcer of right heel and midfoot limited to breakdown of skin; F17.210 Nicotine dependence, cigarettes, uncomplicated; I87.2 Venous insufficiency (chronic) (peripheral) | CPT/HCPCS: 11042 ==

== ENCOUNTER 2021-09-01 17:37 | Emergency (ER) | payer MEDICAID, SELFPAY ==
[2021-09-01 17:42] VITALS: BP 154/80; PULSE 105; RESP 24; TEMP 37.3; O2SAT 95; BMI 41.5
--- NOTE | 2021-09-01 18:11 | XRR_ITS ---
PROCEDURE INFORMATION: Exam: XR Chest Exam date and time: 09/01/2021 6:11 PM Age: 61 years old Clinical indication: Dyspnea; Additional info: SOB on exertion TECHNIQUE: Imaging protocol: XR of the chest. Views: 1 view. COMPARISON: CR (CHEST, ) 06/22/2021 10:02 PM FINDINGS: Lungs: Prominent coarsened interstitial lung markings. No localized airspace consolidation. Symmetric lung volumes. Calcified granuloma at right lung base. Pleural spaces: Unremarkable. No pleural effusion. No pneumothorax. Heart/Mediastinum: Cardiomegaly. Bones/joints: Unremarkable. XR/XR chest 1V portable [id number] IMPRESSION: Mild prominence of pulmonary interstitial pattern without focal consolidation. Nonspecific finding. This could reflect interstitial edema or atypical pneumonia features.
--- NOTE | 2021-09-01 18:11 | XRR_ITS ---
PROCEDURE INFORMATION: Exam: XR Right Foot Exam date and time: 09/01/2021 6:11 PM Age: 61 years old Clinical indication: Pain; Foot; Right; Additional info: 2 worsening chronic diabetic ulcers TECHNIQUE: Imaging protocol: XR Right foot. Views: 3 or more views. COMPARISON: No relevant prior studies available. FINDINGS: Bones/joints: No fractures. Unremarkable joint space alignments. No focal bone erosion. Osseous calcaneal spurs. Osteophytes across the dorsal aspect of tarsal bones. Soft tissues: Pronounced dorsal side soft tissue swelling of the forefoot. No soft tissue gas. XR/XR foot RT min 3V* [id number] IMPRESSION: Negative for osteomyelitis.
--- NOTE | 2021-09-01 18:14 | ECG_ITS ---
[facility] Test Date: 2021-09-01 Pat Name: Mark Katz Department: Room: Gender: Male [employer]: : [id number] Requested By: Nic Israel Order Number: [id number] Bird MD: Kaylie Wheeler M.D. Measurements Intervals [place] Rate: 94 P: 61 NH: 133 QRS: -33 QRSD: 106 T: 72 QT: 376 QTc: 472 Interpretive Statements SINUS RHYTHM POSSIBLE LEFT ATRIAL ENLARGEMENT [-0.1mV P-WAVE IN V1/V2] LEFT AXIS DEVIATION [QRS AXIS < -30] Compared to ECG 06/23/2021 00:07:37 T-wave abnormality no longer present Electronically Signed On 09-02-2021 20:01:44 BLOCK [place]ON by Kaylie Wheeler M.D. [id number]
--- NOTE | 2021-09-01 18:15 | W.ED.WEAKNES ---
Documented by User: EFRA Leary 09/02/21 02:34 HPI - Weakness General: Chief complaint: Weakness Stated complaint: WEAKNESS; N/V Time Seen by Provider: 09/01/21 17:56 History of Present Illness: HPI Narrative: Patient is a 61-year-old male comes to the ED with generalized weakness, nausea and vomiting. Patient has a past medical history of CHF, COPD, hypertension, diabetes type 2 with bilateral chronic foot ulcers. Symptoms started approximately 3 days ago. Patient says he has felt generalized weakness and has had no appetite for the past 3 days. Today he started having some nausea and emesis. Denies any cough, shortness of breath, chest pain, fever, chills, abdominal pain, bladder or bowel symptoms. He also complains of having some generalized pain, but does not complain of any specific localized pain. Denies any fever, chest pain, body aches or cough. He states that he does have some chronic shortness of breath upon exertion. He sees wound care for his diabetic foot ulcers. The wounds on his right foot started approximately 2 weeks ago and his wounds on his left foot are chronic and improving. He was seen by wound care approximately a week ago and they evaluated both right and left foot ulcers and said that they were improving. Patient and patient's says that the ulcer on his right heel has gotten worse over the last week. Patient was brought in via EMS and they started him on 1 L of IV fluids that was continued here in the ED. Associated symptoms: Reports nausea and vomiting; Denies chest pain, chills, dysuria, fever(s) or headache(s) Review of Systems Narrative: Generalized pain Const: Reports: change in appetite (no appetite) and fatigue (generalized weakness); Denies: fever(s) or chills Eyes: Denies: change in vision or eye discomfort ENMT: Denies: throat pain, odynophagia, nasal discharge or nasal congestion Card: Denies: chest pain, palpitations, edema, swelling of feet/ankles, dyspnea on exertion or orthopnea Resp: Denies: dyspnea, productive cough or non-productive cough GI: Reports: nausea and vomiting; Denies: abdominal pain, diarrhea, constipation or hematochezia : Denies: flank pain, difficulty urinating, dysuria or hematuria Musc: Denies: neck pain, back pain or extremity swelling Skin/Breast: Reports: lesions (diabetic ulcers right and left feet.); Denies: rash or new lesions Neuro: Denies: headache(s), numbness in extremities or weakness in extremities PFSH ED PFSH: Medical History Acute on chronic heart failure with normal ejection fraction Altered mental state Anasarca Anasarca Ankylosing spondylitis Anxiety and depression CHF (congestive heart failure) Chronic heart failure with normal ejection fraction Chronic ulcer of left foot due to diabetes mellitus COPD (chronic obstructive pulmonary disease) Diabetes mellitus Hypertension Lymphadenopathy No pertinent family history Noncompliance with CPAP treatment Obstructive sleep apnea Opioid dependence Sepsis Sepsis due to undetermined organism Tobacco abuse Surgical History No pertinent past surgical history Family History Other Hypertension Social History Alcohol intake: never Physical Exam Const: COMMON NORMALS: patient oriented x3 and alert GENERAL APPEARANCE: cooperative HENMT: COMMON NORMALS: normocephalic HEAD & SCALP: normocephalic MOUTH: Normal oral and palatal mucosa present THROAT: posterior oropharynx normal and uvula midline Neck/C-Spine: COMMON NORMALS: supple GENERAL: Yes normal visual inspection Resp: COMMON NORMALS: normal respiratory effort, No retractions, No use of accessory muscles and clear to auscultation bilaterally AUSCULTATION: clear to auscultation bilaterally Cardio: COMMON NORMALS: regular rate, regular rhythm, S1 normal heart sound present, S2 normal heart sound present, No gallops present (Cardio), No clicks present (Cardio), No murmurs present (Cardio) and Peripheral pulses 2+ throughout RATE: regular rate RHYTHM: regular rhythm HEART SOUNDS: S1 normal heart sound present and S2 normal heart sound present PERIPHERAL PULSES: Peripheral pulses 2+ throughout GI: COMMON NORMALS: Normal to inspection, nondistended, normoactive bowel sounds present, Soft to palpation, non-tender and no masses PALPATION: Yes Soft to palpation : COMMON NORMALS: Yes no CVA tenderness BLADDER/KIDNEY EXAM: Yes no CVA tenderness Back/Pelvis: COMMON NORMALS: no CVA tenderness Extremity: NARRATIVE EXTREMITY EXAM: Right foot?generalized erythema and edema. Foot is warm to palpation. Pressure ulcer on right calcaneus of foot is appears to be a stage II pressure ulcer. Foul odor from ulcer. There is some necrotic tissue and medium amount of serosanguineous drainage noted. GENERAL: Yes normal exam except as noted Neuro: COMMON NORMALS: patient oriented x3 and moves all extremities SENSORIUM/ORIENTATION: Yes alert Skin: GENERAL SKIN EXAM: dry skin Course ED course: I told patient that he was positive for COVID-19. I recommended the monoclonal antibody infusion treatment and I described the risk and benefits to patient. He agreed and wanted to have the infusions done. I talked with Dr. Price and we are going to give patient monoclonal antibody infusions while here in the ED. patient is not requiring any oxygen. Patient signed the monoclonal antibody and infusion consent form. Vital Signs: Vital signs: Vital Signs Temperature 98.6 F 09/02/21 02:43 Pulse Rate 79 09/02/21 02:43 Respiratory Rate 18 09/02/21 02:43 Blood Pressure 116/58 09/02/21 02:43 Pulse Oximetry 95 09/02/21 02:43 MDM - Weakness MDM Narrative: Medical decision making narrative: Patient is a 61-year-old male who comes to the ED with decreased appetite, nausea and vomiting. past medical history of CHF, COPD, hypertension, diabetes type 2 with bilateral chronic foot ulcers. Patient arrived to the ED via EMS and was started on 1 L of fluids in the bag was continued here in the ED. He also has a diabetic foot ulcer on right heel that has worsened over the last week. Vitals stable. Exam?right foot showed some erythema, swelling and warmth. He has a stage II ulcer on right heel. White blood cell count of 17.7, sodium 130. Patient's creatinine is 1.5 which is his baseline. CRP 101, 6. ESR 72. Lactic normal at 1.1. COVID PCR test was positive. EKG showed normal sinus rhythm with no ST segment elevation or depression seen. Chest x-ray shows no focal pneumonia. Right foot x-ray shows no signs of osteomyelitis. Patient was given IV vancomycin while here in the ED. I discussed with patient the option of potentially getting monoclonal antibody infusions to help treat COVID. I discussed the risk and benefits of monoclonal antibody infusions and patient signed consent form. I talked with Dr. Price about patient case and we decided to have patient get the infusions while here in the ED. Dr. Price came in and evaluated patient as well and exam and patient's right foot ulcer. Since patient has follow-up with wound care clinic in a few days patient has going to be discharged home tonight. Patient agreed with plan. Pt Received bam infusions in the ED and he had no reactions and was watched for an hour after infusions and was stable for discharge. Patient has an appointment with wound care clinic this coming Friday to follow-up on diabetic foot ulcers. Patient diagnosed with diabetic foot ulcer and COVID-19. Patient was discharged home with a prescription for clindamycin and Zofran for nausea. Return to ED precautions given. Patient understood and agreed with plan. Lab Data: Attestation: I reviewed the patient's lab results. Labs: Lab Results 09/01/21 09/01/21 09/01/21 20:15 20:15 20:15 WBC 17.7 10^3/uL H 10 ^3/uL (4.0-10.0) RBC 3.82 10^6/uL L 10 ^6/uL (4.1-5.3) Hgb 11.7 g/dL g/dL (11.7-16.6) Hct 35.5 % L % (42.0-52.0) MCV 92.9 fl fl (80-94) MCH 30.6 pg pg (28.0-34.0) MCHC 33.0 g/dL g/dL (30.0-36.0) RDW 12.9 % % (12.1-15.1) Plt Count 154 10^3/cmm 10^3 /cmm (130-400) MPV 12.1 fL H fL (7.4-10.4) Neut % (Auto) 87.9 % % Lymph % (Auto) 7.5 % % [place] % (Auto) 3.1 % % Eos % (Auto) 0.0 % % Baso % (Auto) 0.1 % % Neut # (Auto) 15.54 10^3/uL H 1 0^3/uL (1.8-7.7) Lymph # (Auto) 1.3 10^3/uL 10^3/ uL (0.8-4.8) [place] # (Auto) 0.5 10^3/uL 10^3/ uL (0.2-0.9) Eos # (Auto) 0.0 10^3/uL 10^3/ uL (0.0-0.8) Baso # (Auto) 0.0 10^3/uL 10^3/ uL (0.0-0.1) Nucleated RBC % (a uto) 0 % % Nucleated RBCs # 0.0 /100WBC /100W BC ESR 72 mm/hr H mm/hr (0-10) Sodium 130 mmol/L L mmol /L (136-145) Potassium 3.5 mmol/L mmol/L (3.5-5.1) Chloride 98 mmol/L mmol/L (98-107) Carbon Dioxide 19 mmol/L L mmol/ L (22-29) Anion Gap 16.5 (5-19) BUN 14 mg/dL mg/dL (8-23) Creatinine 1.5 mg/dL H mg/dL (0.7-1.2) GFR Calculation 47.3 mL/min L mL/ min (90-130) Glucose 227 mg/dL H mg/dL (65-115) Calculated Osmolal ity 278 mOsm/kg L mOs m/kg (285-295) Lactic Acid 1.1 mmol/L mmol/L (0.5-2.2) Calcium 8.2 mg/dL L mg/dL (8.5-10.5) Total Bilirubin 0.4 mg/dL mg/dL (0.15-1.2) AST 17 U/L U/L (0-40) ALT 10 U/L U/L (0-41) Alkaline Phosphata se 147 IU/L H IU/L (40-130) C-Reactive Protein 101.0 mg/L H mg/L (0.0-4.9) Total Protein 6.0 g/dL L g/dL (6.6-8.7) Albumin 2.1 g/dL L g/dL (3.5-5.2) Globulin 3.9 g/dL g/dL (1.3-4.6) Coronavirus 229E ( PCR) SARS-CoV-2 (PCR) 09/01/21 20:15 WBC RBC Hgb Hct MCV MCH MCHC RDW Plt Count MPV Neut % (Auto) Lymph % (Auto) [place] % (Auto) Eos % (Auto) Baso % (Auto) Neut # (Auto) Lymph # (Auto) [place] # (Auto) Eos # (Auto) Baso # (Auto) Nucleated RBC % (a uto) Nucleated RBCs # ESR Sodium Potassium Chloride Carbon Dioxide Anion Gap BUN Creatinine GFR Calculation Glucose Calculated Osmolal ity Lactic Acid Calcium Total Bilirubin AST ALT Alkaline Phosphata se C-Reactive Protein Total Protein Albumin Globulin Coronavirus 229E ( PCR) Not detected (NOT DETECT) SARS-CoV-2 (PCR) Detected A (NOT DETECT) Imaging Data^: CXR: Attestation: I personally reviewed and interpreted this imaging study as follows: Radiologist's impression: [facility] [address] XRay Report Signed Patient: Mark Katz Unit #: [id number] : 1960 Age/Sex: 61 / M ADM Date: 09/01/21 Loc: ER Room/Bed: Attending Dr: Ordering Provider/Ordering MD: Nic Israel Date of Service: 09/01/21 Procedure(s): XR chest 1V portable [id number] Accession Number(s): [id number] Report Number: [id number] PROCEDURE INFORMATION: Exam: XR Chest Exam date and time: 09/01/2021 6:11 PM Age: 61 years old Clinical indication: Dyspnea; Additional info: SOB on exertion TECHNIQUE: Imaging protocol: XR of the chest. Views: 1 view. COMPARISON: CR (CHEST, ) 06/22/2021 10:02 PM FINDINGS: Lungs: Prominent coarsened interstitial lung markings. No localized airspace consolidation. Symmetric lung volumes. Calcified granuloma at right lung base. Pleural spaces: Unremarkable. No pleural effusion. No pneumothorax. Heart/Mediastinum: Cardiomegaly. Bones/joints: Unremarkable. XR/XR chest 1V portable [id number] IMPRESSION: Mild prominence of pulmonary interstitial pattern without focal consolidation. Nonspecific finding. This could reflect interstitial edema or atypical pneumonia features. Dictated By: Ambrose Hodges Signed By: Ambrose Hodges Signed Date/Time: 09/01/212100 DD/ 10 Xray Ortho: Attestation: I personally reviewed and interpreted this imaging study as follows: Radiologist's impression: [facility] [address] [place] [address] XRay Report Signed Patient: Mark Katz Unit #: [id number] : 1960 Age/Sex: 61 / M ADM Date: 09/01/21 Loc: ER Room/Bed: Attending Dr: Ordering Provider/Ordering MD: Nic Israel Date of Service: 09/01/21 Procedure(s): XR foot RT min 3V* [id number] Accession Number(s): [id number] Report Number: [id number] PROCEDURE INFORMATION: Exam: XR Right Foot Exam date and time: 09/01/2021 6:11 PM Age: 61 years old Clinical indication: Pain; Foot; Right; Additional info: 2 worsening chronic diabetic ulcers TECHNIQUE: Imaging protocol: XR Right foot. Views: 3 or more views. COMPARISON: No relevant prior studies available. FINDINGS: Bones/joints: No fractures. Unremarkable joint space alignments. No focal bone erosion. Osseous calcaneal spurs. Osteophytes across the dorsal aspect of tarsal bones. Soft tissues: Pronounced dorsal side soft tissue swelling of the forefoot. No soft tissue gas. XR/XR foot RT min 3V* [id number] IMPRESSION: Negative for osteomyelitis. Dictated By: Ambrose Hodges Signed By: Ambrose Hodges Signed Date/Time: 09/01/212099 DD/ 10 EKG Data^: EKG 1: Attestation: I personally reviewed and interpreted this EKG as follows: EKG interpretation date: 09/01/21 Interpretation: Normal sinus rhythm, 94 bpm, no ST segment elevation or depression seen. Discharge Plan Discharge Patient Disposition: Home Clinical Impression: COVID-19 Diabetic foot ulcer Qualifiers: Diabetic foot ulcer location: heel Diabetes mellitus type: type 2 Laterality: right Non-pressure ulcer stage: with fat layer exposed Qualified Code(s): E11.621 - Type 2 diabetes mellitus with foot ulcer Condition: Stable Prescriptions: New clindamycin HCl 150 mg capsule 300 mg PO QID 7 Days Qty: 56 RF: 0 Zofran 4 mg tablet 4 mg PO Q8H PRN (Reason: nausea and vomiting) Qty: 20 RF: 0 No Action ondansetron HCl [Zofran] 4 mg tablet 8 mg PO Q8H PRN (Reason: nausea and vomiting) Qty: 20 RF: 0 amoxicillin 875 mg tablet 875 mg PO TID Qty: 9 RF: 0 insulin aspart U-100 [Novolog Flexpen U-100 Insulin] 100 unit/mL (3 mL) insulin pen 15 unit SUBCUT BID Qty: 30 RF: 3 Levemir FlexTouch U-100 Insuln 100 unit/mL (3 mL) insulin pen 50 unit SUBCUT DAILY Qty: 15 RF: 3 (DME) blood-glucose meter [Easy Touch Glucose Monitor] Misc See Rx Instructions .Route Qty: 1 RF: 3 (DME) EasyGluco Test Strip See Rx Instructions .Route Qty: 200 RF: 3 (DME) lancets [Easy Touch Lancets] 28 gauge misc See Rx Instructions .Route Qty: 200 RF: 3 dextroamphetamine-amphetamine 10 mg tablet 10 mg PO BID RF: 0 oxycodone 30 mg tablet 30 - 60 mg PO Q4H PRN (Reason: Pain) RF: 0 Fish Oil 120-180-500 mg Capsule 1 cap PO DAILY RF: 0 Discharge Orders: Discharge ED (Routine); Ordered 09/02/21 Ordered By: Nic Israel Referrals: Vivek Dee DO [Primary Care Provider] - Discharge Diet: Regular Discharge Activity: Increase activity as tolerated Patient Instructions: Diabetic Foot Ulcers (ED), COVID-19 (Coronavirus Disease 2019) (ED), COVID-19 and Chronic Health Conditions (ED) Activity Restrictions/Additional Instructions: Follow-up with wound care clinic at your next scheduled appointment this coming Friday to have your diabetic foot ulcers reevaluated. Take medications as prescribed. Return to the ER or your medical provider if condition worsens. Please read and understand discharge instructions. Thank you for choosing [facility] for your healthcare needs today. Please realize this is an emergency room and that we are providing you with a medical screening exam and this may not be complete and all inclusive of all the testing and or work up that you may need to determine your ailment or severity of your illness. It is very important that you follow up as instructed or that you return to the Emergency Department should you have concerns or if your condition changes or worsens in any way. Coding Level of Care Code ED Hot Metal Car Operator for Chg Fwd Exam Comprehensive Documented by User: Azeem Price DO 09/02/21 03:37 HPI - Weakness General: Chief complaint: Weakness Stated complaint: WEAKNESS; N/V Time Seen by Provider: 09/01/21 17:56 PFSH ED PFSH: Medical History Acute on chronic heart failure with normal ejection fraction Altered mental state Anasarca Anasarca Ankylosing spondylitis Anxiety and depression CHF (congestive heart failure) Chronic heart failure with normal ejection fraction Chronic ulcer of left foot due to diabetes mellitus COPD (chronic obstructive pulmonary disease) Diabetes mellitus Hypertension Lymphadenopathy No pertinent family history Noncompliance with CPAP treatment Obstructive sleep apnea Opioid dependence Sepsis Sepsis due to undetermined organism Tobacco abuse Surgical History No pertinent past surgical history Family History Other Hypertension Social History Alcohol intake: never Course Vital Signs: Vital signs: Vital Signs Temperature 98.6 F 09/02/21 02:43 Pulse Rate 79 09/02/21 02:43 Respiratory Rate 18 09/02/21 02:43 Blood Pressure 116/58 09/02/21 02:43 Pulse Oximetry 95 09/02/21 02:43 MDM - Weakness MDM Narrative: Medical decision making narrative: This patient was originally seen by Mr. Jhonatan PA-C. I agree with his history, evaluation, and treatment. Lab Data: Labs: Lab Results 09/01/21 09/01/21 09/01/21 20:15 20:15 20:15 WBC 17.7 10^3/uL H 10 ^3/uL (4.0-10.0) RBC 3.82 10^6/uL L 10 ^6/uL (4.1-5.3) Hgb 11.7 g/dL g/dL (11.7-16.6) Hct 35.5 % L % (42.0-52.0) MCV 92.9 fl fl (80-94) MCH 30.6 pg pg (28.0-34.0) MCHC 33.0 g/dL g/dL (30.0-36.0) RDW 12.9 % % (12.1-15.1) Plt Count 154 10^3/cmm 10^3 /cmm (130-400) MPV 12.1 fL H fL (7.4-10.4) Neut % (Auto) 87.9 % % Lymph % (Auto) 7.5 % % [place] % (Auto) 3.1 % % Eos % (Auto) 0.0 % % Baso % (Auto) 0.1 % % Neut # (Auto) 15.54 10^3/uL H 1 0^3/uL (1.8-7.7) Lymph # (Auto) 1.3 10^3/uL 10^3/ uL (0.8-4.8) [place] # (Auto) 0.5 10^3/uL 10^3/ uL (0.2-0.9) Eos # (Auto) 0.0 10^3/uL 10^3/ uL (0.0-0.8) Baso # (Auto) 0.0 10^3/uL 10^3/ uL (0.0-0.1) Nucleated RBC % (a uto) 0 % % Nucleated RBCs # 0.0 /100WBC /100W BC ESR 72 mm/hr H mm/hr (0-10) Sodium 130 mmol/L L mmol /L (136-145) Potassium 3.5 mmol/L mmol/L (3.5-5.1) Chloride 98 mmol/L mmol/L (98-107) Carbon Dioxide 19 mmol/L L mmol/ L (22-29) Anion Gap 16.5 (5-19) BUN 14 mg/dL mg/dL (8-23) Creatinine 1.5 mg/dL H mg/dL (0.7-1.2) GFR Calculation 47.3 mL/min L mL/ min (90-130) Glucose 227 mg/dL H mg/dL (65-115) Calculated Osmolal ity 278 mOsm/kg L mOs m/kg (285-295) Lactic Acid 1.1 mmol/L mmol/L (0.5-2.2) Calcium 8.2 mg/dL L mg/dL (8.5-10.5) Total Bilirubin 0.4 mg/dL mg/dL (0.15-1.2) AST 17 U/L U/L (0-40) ALT 10 U/L U/L (0-41) Alkaline Phosphata se 147 IU/L H IU/L (40-130) C-Reactive Protein 101.0 mg/L H mg/L (0.0-4.9) Total Protein 6.0 g/dL L g/dL (6.6-8.7) Albumin 2.1 g/dL L g/dL (3.5-5.2) Globulin 3.9 g/dL g/dL (1.3-4.6) Coronavirus 229E ( PCR) SARS-CoV-2 (PCR) 09/01/21 20:15 WBC RBC Hgb Hct MCV MCH MCHC RDW Plt Count MPV Neut % (Auto) Lymph % (Auto) [place] % (Auto) Eos % (Auto) Baso % (Auto) Neut # (Auto) Lymph # (Auto) [place] # (Auto) Eos # (Auto) Baso # (Auto) Nucleated RBC % (a uto) Nucleated RBCs # ESR Sodium Potassium Chloride Carbon Dioxide Anion Gap BUN Creatinine GFR Calculation Glucose Calculated Osmolal ity Lactic Acid Calcium Total Bilirubin AST ALT Alkaline Phosphata se C-Reactive Protein Total Protein Albumin Globulin Coronavirus 229E ( PCR) Not detected (NOT DETECT) SARS-CoV-2 (PCR) Detected A (NOT DETECT) Discharge Plan Discharge Patient Disposition: Home Clinical Impression: COVID-19 Diabetic foot ulcer Qualifiers: Diabetic foot ulcer location: heel Diabetes mellitus type: type 2 Laterality: right Non-pressure ulcer stage: with fat layer exposed Qualified Code(s): E11.621 - Type 2 diabetes mellitus with foot ulcer Condition: Stable Prescriptions: New clindamycin HCl 150 mg capsule 300 mg PO QID 7 Days Qty: 56 RF: 0 Zofran 4 mg tablet 4 mg PO Q8H PRN (Reason: nausea and vomiting) Qty: 20 RF: 0 No Action ondansetron HCl [Zofran] 4 mg tablet 8 mg PO Q8H PRN (Reason: nausea and vomiting) Qty: 20 RF: 0 amoxicillin 875 mg tablet 875 mg PO TID Qty: 9 RF: 0 insulin aspart U-100 [Novolog Flexpen U-100 Insulin] 100 unit/mL (3 mL) insulin pen 15 unit SUBCUT BID Qty: 30 RF: 3 Levemir FlexTouch U-100 Insuln 100 unit/mL (3 mL) insulin pen 50 unit SUBCUT DAILY Qty: 15 RF: 3 (DME) blood-glucose meter [Easy Touch Glucose Monitor] Misc See Rx Instructions .Route Qty: 1 RF: 3 (DME) EasyGluco Test Strip See Rx Instructions .Route Qty: 200 RF: 3 (DME) lancets [Easy Touch Lancets] 28 gauge misc See Rx Instructions .Route Qty: 200 RF: 3 dextroamphetamine-amphetamine 10 mg tablet 10 mg PO BID RF: 0 oxycodone 30 mg tablet 30 - 60 mg PO Q4H PRN (Reason: Pain) RF: 0 Fish Oil 120-180-500 mg Capsule 1 cap PO DAILY RF: 0 Discharge Orders: Discharge ED (Routine); Ordered 09/02/21 Ordered By: Nic Israel Referrals: Vivek Dee DO [Primary Care Provider] - Discharge Diet: Regular Discharge Activity: Increase activity as tolerated Patient Instructions: Diabetic Foot Ulcers (ED), COVID-19 (Coronavirus Disease 2019) (ED), COVID-19 and Chronic Health Conditions (ED) Activity Restrictions/Additional Instructions: Follow-up with wound care clinic at your next scheduled appointment this coming Friday to have your diabetic foot ulcers reevaluated. Take medications as prescribed. Return to the ER or your medical provider if condition worsens. Please read and understand discharge instructions. Thank you for choosing [facility] for your healthcare needs today. Please realize this is an emergency room and that we are providing you with a medical screening exam and this may not be complete and all inclusive of all the testing and or work up that you may need to determine your ailment or severity of your illness. It is very important that you follow up as instructed or that you return to the Emergency Department should you have concerns or if your condition changes or worsens in any way. Coding Level of Care Code ED Hot Metal Car Operator for Koby Fwd Exam Comprehensive
[2021-09-01] MEDS: ondansetron 2 mg/ML SDV 2 mL 4 MG IVP (20:21)
[2021-09-01 20:46] LABS: Basophils % 0.1 %; Hematocrit 35.5 % (42.0-52.0); Hemoglobin 11.7 g/dL (11.7-16.6); Lymphocytes # 1.3 10^3/uL (0.8-4.8); Lymphocytes % 7.5 %; Mean Corpuscular Hemoglobin 30.6 pg (28.0-34.0); Mean Corpuscular Volume 92.9 fl (80-94); Mean Platelet Volume 12.1 fL (7.4-10.4); Monocytes # 0.5 10^3/uL (0.2-0.9); Monocytes % 3.1 %; Neutrophils # 15.54 10^3/uL (1.8-7.7); Neutrophils % 87.9 %; Nucleated Red Blood Cells % 0 %; Platelet Count 154 10^3/cmm (130-400); Red Blood Count 3.82 10^6/uL (4.1-5.3); Red Cell Distribution Width 12.9 % (12.1-15.1); White Blood Count 17.7 10^3/uL (4.0-10.0)
[2021-09-01 21:00] VITALS: RESP 14; O2SAT 93
[2021-09-01 21:00] LABS: Lactic Sepsis W/Reflex 1.1 mmol/L (0.5-2.2)
[2021-09-01] MEDS: oxyCODONE IR 30 mg Tablet PO (21:00)
[2021-09-01 21:11] LABS: Erythrocyte Sedimentation Rate 72 mm/hr (0-10)
[2021-09-01 21:26] LABS: Slide Review Slide Review Perform
[2021-09-01 22:00] VITALS: BP 118/58; PULSE 89; RESP 16; O2SAT 95
[2021-09-01 22:22] LABS: Alanine Aminotransferase 10 U/L (0-41); Albumin Level 2.1 g/dL (3.5-5.2); Alkaline Phosphatase 147 IU/L (40-130); Chloride 98 mmol/L (98-107); Potassium 3.5 mmol/L (3.5-5.1); Sodium 130 mmol/L (136-145)
[2021-09-01 22:48] LABS: Adenovirus Not Detected (NOT DETECT); Chlamydia Pneumoniae Not Detected (NOT DETECT); Coronavirus 229E,HKU1,NL63,OC4 Not Detected (NOT DETECT); Human Metapneumovirus Not Detected (NOT DETECT); Human Rhinovirus/Enterovirus Not Detected (NOT DETECT); Influenza A Not Detected (NOT DETECT); Influenza A H1 Not Detected (NOT DETECT); Influenza A H1-2009 Not Detected (NOT DETECT); Influenza A H3 Not Detected (NOT DETECT); Influenza B Not Detected (NOT DETECT); Mycoplasma Pneumoniae Not Detected (NOT DETECT); Parainfluenza Virus Type 1 Not Detected (NOT DETECT); Parainfluenza Virus Type 2 Not Detected (NOT DETECT); Parainfluenza Virus Type 3 Not Detected (NOT DETECT); Parainfluenza Virus Type 4 Not Detected (NOT DETECT); Respiratory Syncytial Virus A Not Detected (NOT DETECT); Respiratory Syncytial Virus B Not Detected (NOT DETECT); SARS-COV-2 Detected (NOT DETECT)
[2021-09-01] MEDS: vancomycin 1,500 MG/300 ML PIGGYBACK 200 MG IV (22:49)
[2021-09-01 22:55] LABS: Anion Gap 16.5 (5-19); Aspartate Amino Transferase 17 U/L (0-40); Blood Urea Nitrogen 14 mg/dL (8-23); Calcium 8.2 mg/dL (8.5-10.5); Carbon Dioxide 19 mmol/L (22-29); Globulin 3.9 g/dL (1.3-4.6); Glomerular Filtration Rate 47.3 mL/min (90-130); Glucose 227 mg/dL (65-115); Osmolality Calculated 278 mOsm/kg (285-295); Total Bilirubin 0.4 mg/dL (0.15-1.2)
[2021-09-01 22:56] VITALS: BP 112/55; PULSE 82; RESP 16; O2SAT 94
[2021-09-01 23:15] VITALS: BP 115/58; PULSE 78; RESP 15; O2SAT 93
[2021-09-02 00:41] VITALS: BP 111/61; PULSE 79; RESP 15; O2SAT 94
[2021-09-02 01:06] VITALS: BP 126/65; PULSE 80; RESP 14; O2SAT 95
[2021-09-02 01:25] VITALS: BP 126/65; PULSE 78; RESP 16; O2SAT 96
[2021-09-02 02:06] VITALS: BP 116/58; PULSE 79; RESP 18; TEMP 37; O2SAT 95
[2021-09-02 02:43] VITALS: BP 116/58; PULSE 79; RESP 18; TEMP 37; O2SAT 95
== END 2021-09-02 02:10 | disposition home or self-care (01) ==
PROVIDERS: Emergency Provider Physician Assistant; PCP Family Medicine
DX: U07.1 COVID-19 (principal); E11.621 Type 2 diabetes mellitus with foot ulcer; Z79.4 Long term (current) use of insulin; I11.0 Hypertensive heart disease with heart failure; I50.9 Heart failure, unspecified; J44.9 Chronic obstructive pulmonary disease, unspecified
CPT/HCPCS: 71045; 73630; 80053; 83605; 85025; 85651; 86140; 87040; 87635; 93005; 96365; 96367; 99284; J2405; J3370

== ENCOUNTER 2021-09-10 13:06 | Outpatient (CLI) | payer MEDICAID, SELFPAY | END 2021-09-10 13:07 | disposition home or self-care (01) | LOC: WOUND 13:06 | PROVIDERS: PCP Family Medicine; Visit Provider Nurse Practitioner Family | DX: I96 Gangrene, not elsewhere classified (principal); E11.621 Type 2 diabetes mellitus with foot ulcer; L97.512 Non-pressure chronic ulcer of other part of right foot with fat layer exposed; L97.412 Non-pressure chronic ulcer of right heel and midfoot with fat layer exposed; L97.522 Non-pressure chronic ulcer of other part of left foot with fat layer exposed; F17.210 Nicotine dependence, cigarettes, uncomplicated; I87.2 Venous insufficiency (chronic) (peripheral) | CPT/HCPCS: 11042 ==

== ENCOUNTER 2021-09-17 14:28 | Outpatient (CLI) | payer MEDICAID, SELFPAY | END 2021-09-17 14:29 | disposition home or self-care (01) | LOC: WOUND 14:28 | PROVIDERS: PCP Family Medicine; Visit Provider Thoracic Surgery (Cardiothoracic Vascular Surgery) | DX: I96 Gangrene, not elsewhere classified (principal); E11.621 Type 2 diabetes mellitus with foot ulcer; L97.521 Non-pressure chronic ulcer of other part of left foot limited to breakdown of skin; L97.511 Non-pressure chronic ulcer of other part of right foot limited to breakdown of skin; L97.412 Non-pressure chronic ulcer of right heel and midfoot with fat layer exposed; F17.210 Nicotine dependence, cigarettes, uncomplicated; I87.2 Venous insufficiency (chronic) (peripheral) | CPT/HCPCS: 11043; 87070; 87077; 87176; 87186; 87205; 97597; A6260 ==

== ENCOUNTER 2021-09-26 13:12 | Outpatient (CLI) | payer MEDICAID, SELFPAY | END 2021-09-26 13:13 | disposition home or self-care (01) | LOC: WOUND 13:13 | PROVIDERS: PCP Family Medicine; Visit Provider Thoracic Surgery (Cardiothoracic Vascular Surgery) | DX: I96 Gangrene, not elsewhere classified (principal); E11.621 Type 2 diabetes mellitus with foot ulcer; L97.529 Non-pressure chronic ulcer of other part of left foot with unspecified severity; L97.519 Non-pressure chronic ulcer of other part of right foot with unspecified severity; L97.413 Non-pressure chronic ulcer of right heel and midfoot with necrosis of muscle; F17.210 Nicotine dependence, cigarettes, uncomplicated | CPT/HCPCS: 11043 ==

== ENCOUNTER 2021-09-27 16:30 | Outpatient (CLI) | payer MEDICAID, SELFPAY | END 2021-09-27 16:31 | disposition home or self-care (01) | LOC: SPT 16:30 | PROVIDERS: PCP Family Medicine; Visit Provider Nurse Practitioner Family | DX: R26.89 Other abnormalities of gait and mobility (principal) | CPT/HCPCS: 97760 ==

== ENCOUNTER 2021-10-03 10:54 | Outpatient (CLI) | payer MEDICAID, SELFPAY | END 2021-10-03 10:55 | disposition home or self-care (01) | LOC: WOUND 10:55 | PROVIDERS: PCP Family Medicine; Visit Provider Thoracic Surgery (Cardiothoracic Vascular Surgery) | DX: I96 Gangrene, not elsewhere classified (principal); E11.621 Type 2 diabetes mellitus with foot ulcer; L97.412 Non-pressure chronic ulcer of right heel and midfoot with fat layer exposed; F17.210 Nicotine dependence, cigarettes, uncomplicated | CPT/HCPCS: 11042 ==

== ENCOUNTER 2021-10-10 15:56 | Outpatient (CLI) | payer MEDICAID, SELFPAY | END 2021-10-10 15:57 | disposition home or self-care (01) | LOC: WOUND 15:57 | PROVIDERS: PCP Family Medicine; Visit Provider Thoracic Surgery (Cardiothoracic Vascular Surgery) | DX: I96 Gangrene, not elsewhere classified (principal); E11.621 Type 2 diabetes mellitus with foot ulcer; L97.412 Non-pressure chronic ulcer of right heel and midfoot with fat layer exposed; F17.210 Nicotine dependence, cigarettes, uncomplicated | CPT/HCPCS: 11042 ==

== ENCOUNTER 2021-10-24 13:55 | Outpatient (CLI) | payer MEDICAID, SELFPAY | END 2021-10-24 13:56 | disposition home or self-care (01) | LOC: WOUND 13:55 | PROVIDERS: PCP Family Medicine; Visit Provider Thoracic Surgery (Cardiothoracic Vascular Surgery) | DX: I96 Gangrene, not elsewhere classified (principal); L97.412 Non-pressure chronic ulcer of right heel and midfoot with fat layer exposed; F17.210 Nicotine dependence, cigarettes, uncomplicated | CPT/HCPCS: 11042; A6252 ==

== ENCOUNTER → 2021-10-31 15:00 | Outpatient (BNVA) | payer MEDICAID, SELFPAY | PROVIDERS: PCP Family Medicine; Visit Provider Thoracic Surgery (Cardiothoracic Vascular Surgery) | DX: E11.621 Type 2 diabetes mellitus with foot ulcer (principal); L97.412 Non-pressure chronic ulcer of right heel and midfoot with fat layer exposed; I96 Gangrene, not elsewhere classified | CPT/HCPCS: 11042 ==

== ENCOUNTER → 2021-11-07 14:42 | Outpatient (BNVA) | payer MEDICAID, SELFPAY | PROVIDERS: PCP Family Medicine; Visit Provider Thoracic Surgery (Cardiothoracic Vascular Surgery) | DX: E11.621 Type 2 diabetes mellitus with foot ulcer (principal); I96 Gangrene, not elsewhere classified; L97.412 Non-pressure chronic ulcer of right heel and midfoot with fat layer exposed; F17.210 Nicotine dependence, cigarettes, uncomplicated | CPT/HCPCS: 11042 ==

== ENCOUNTER → 2021-11-21 14:06 | Outpatient (BNVA) | payer MEDICARE, MEDICAID, SELFPAY | PROVIDERS: PCP Family Medicine; Visit Provider Nurse Practitioner Family | DX: E11.621 Type 2 diabetes mellitus with foot ulcer (principal); I96 Gangrene, not elsewhere classified; L97.412 Non-pressure chronic ulcer of right heel and midfoot with fat layer exposed; F17.210 Nicotine dependence, cigarettes, uncomplicated | CPT/HCPCS: 11042; A6197; A6252 ==

== ENCOUNTER → 2021-11-28 14:35 | Outpatient (BNVA) | payer MEDICARE, MEDICAID, SELFPAY | PROVIDERS: PCP Family Medicine; Visit Provider Nurse Practitioner Family | DX: E11.621 Type 2 diabetes mellitus with foot ulcer (principal); L97.412 Non-pressure chronic ulcer of right heel and midfoot with fat layer exposed; I96 Gangrene, not elsewhere classified; F17.210 Nicotine dependence, cigarettes, uncomplicated | CPT/HCPCS: 11042; A6197; A6252 ==

== ENCOUNTER → 2021-12-12 13:28 | Outpatient (BNVA) | payer MEDICARE, MEDICAID, SELFPAY | PROVIDERS: PCP Family Medicine; Visit Provider Thoracic Surgery (Cardiothoracic Vascular Surgery) | DX: E11.621 Type 2 diabetes mellitus with foot ulcer (principal); L97.412 Non-pressure chronic ulcer of right heel and midfoot with fat layer exposed; I96 Gangrene, not elsewhere classified; F17.210 Nicotine dependence, cigarettes, uncomplicated | CPT/HCPCS: 97597; A6252 ==

== ENCOUNTER → 2021-12-26 14:05 | Outpatient (BNVA) | payer MEDICARE, MEDICAID, SELFPAY | PROVIDERS: PCP Family Medicine; Visit Provider Thoracic Surgery (Cardiothoracic Vascular Surgery) | DX: E11.621 Type 2 diabetes mellitus with foot ulcer (principal); L97.412 Non-pressure chronic ulcer of right heel and midfoot with fat layer exposed; I96 Gangrene, not elsewhere classified; F17.200 Nicotine dependence, unspecified, uncomplicated | CPT/HCPCS: 97597; A6252 ==

== ENCOUNTER → 2022-01-09 13:52 | Outpatient (BNVA) | payer MEDICARE, MEDICAID, SELFPAY | PROVIDERS: PCP Family Medicine; Visit Provider Thoracic Surgery (Cardiothoracic Vascular Surgery) | DX: E11.621 Type 2 diabetes mellitus with foot ulcer (principal); L97.412 Non-pressure chronic ulcer of right heel and midfoot with fat layer exposed; I96 Gangrene, not elsewhere classified | CPT/HCPCS: 97597; A6197; A6252 ==

== ENCOUNTER → 2022-01-30 13:42 | Outpatient (BNVA) | payer MEDICARE, MEDICAID, SELFPAY | PROVIDERS: PCP Family Medicine; Visit Provider Nurse Practitioner Family | DX: I96 Gangrene, not elsewhere classified (principal); E11.621 Type 2 diabetes mellitus with foot ulcer; L97.412 Non-pressure chronic ulcer of right heel and midfoot with fat layer exposed | CPT/HCPCS: 11042; A6197; A6252 ==

== ENCOUNTER → 2022-02-20 13:19 | Outpatient (BNVA) | payer MEDICARE, MEDICAID, SELFPAY | PROVIDERS: PCP Family Medicine; Visit Provider Nurse Practitioner Family | DX: L97.412 Non-pressure chronic ulcer of right heel and midfoot with fat layer exposed; I96 Gangrene, not elsewhere classified | CPT/HCPCS: 11042; 97597; A6197; A6252 ==

== ENCOUNTER → 2022-03-28 08:53 | Outpatient (BNVA) | payer MEDICARE, MEDICAID, SELFPAY | PROVIDERS: PCP Family Medicine; Visit Provider Nurse Practitioner Family | DX: E11.621 Type 2 diabetes mellitus with foot ulcer (principal); L97.512 Non-pressure chronic ulcer of other part of right foot with fat layer exposed | CPT/HCPCS: 11042; A6251 ==

== ENCOUNTER → 2022-04-29 14:51 | Outpatient (BNVA) | payer MEDICARE, MEDICAID, SELFPAY | PROVIDERS: PCP Family Medicine; Visit Provider Nurse Practitioner Family | DX: I96 Gangrene, not elsewhere classified (principal); L89.892 Pressure ulcer of other site, stage 2 | CPT/HCPCS: 11042 ==

== ENCOUNTER → 2022-05-27 13:46 | Outpatient (BNVA) | payer MEDICARE, MEDICAID, SELFPAY | PROVIDERS: PCP Family Medicine; Visit Provider Thoracic Surgery (Cardiothoracic Vascular Surgery) | DX: I96 Gangrene, not elsewhere classified (principal); E11.621 Type 2 diabetes mellitus with foot ulcer; L97.512 Non-pressure chronic ulcer of other part of right foot with fat layer exposed | CPT/HCPCS: 11042; 87070; 87077; 87176; 87186; 87205 ==

== ENCOUNTER → 2022-06-03 13:52 | Outpatient (BNVA) | payer MEDICARE, MEDICAID, SELFPAY | PROVIDERS: PCP Family Medicine; Visit Provider Thoracic Surgery (Cardiothoracic Vascular Surgery) | DX: I96 Gangrene, not elsewhere classified (principal); E11.621 Type 2 diabetes mellitus with foot ulcer; L97.512 Non-pressure chronic ulcer of other part of right foot with fat layer exposed | CPT/HCPCS: 11043 ==

== ENCOUNTER → 2022-06-10 13:12 | Outpatient (BNVA) | payer MEDICARE, MEDICAID, SELFPAY | PROVIDERS: PCP Family Medicine; Visit Provider Thoracic Surgery (Cardiothoracic Vascular Surgery) | DX: I96 Gangrene, not elsewhere classified (principal); E11.621 Type 2 diabetes mellitus with foot ulcer; L97.412 Non-pressure chronic ulcer of right heel and midfoot with fat layer exposed; L72.8 Other follicular cysts of the skin and subcutaneous tissue | CPT/HCPCS: 10060; 11042; 87070; 87186 ==

== ENCOUNTER → 2022-06-24 13:53 | Outpatient (BNVA) | payer MEDICARE, MEDICAID, SELFPAY | PROVIDERS: PCP Family Medicine; Visit Provider Thoracic Surgery (Cardiothoracic Vascular Surgery) | DX: I96 Gangrene, not elsewhere classified (principal); E11.621 Type 2 diabetes mellitus with foot ulcer; L89.892 Pressure ulcer of other site, stage 2; L72.8 Other follicular cysts of the skin and subcutaneous tissue | CPT/HCPCS: 11042; A6197; A6210 ==

== ENCOUNTER → 2022-07-08 13:15 | Outpatient (BNVA) | payer MEDICARE, MEDICAID, SELFPAY | PROVIDERS: PCP Family Medicine; Visit Provider Nurse Practitioner Family | DX: I96 Gangrene, not elsewhere classified (principal); E11.621 Type 2 diabetes mellitus with foot ulcer; L97.412 Non-pressure chronic ulcer of right heel and midfoot with fat layer exposed; Z09 Encounter for follow-up examination after completed treatment for conditions other than malignant neoplasm | CPT/HCPCS: 11042; A6197 ==

== ENCOUNTER → 2022-07-22 13:52 | Outpatient (BNVA) | payer MEDICARE, MEDICAID, SELFPAY | PROVIDERS: PCP Family Medicine; Visit Provider Nurse Practitioner Family | DX: I96 Gangrene, not elsewhere classified (principal); E11.621 Type 2 diabetes mellitus with foot ulcer; L89.892 Pressure ulcer of other site, stage 2 | CPT/HCPCS: 11042 ==

== ENCOUNTER → 2022-07-29 14:52 | Outpatient (BNVA) | payer MEDICARE, MEDICAID, SELFPAY | PROVIDERS: PCP Family Medicine; Visit Provider Thoracic Surgery (Cardiothoracic Vascular Surgery) | DX: I96 Gangrene, not elsewhere classified (principal); E11.621 Type 2 diabetes mellitus with foot ulcer; L89.892 Pressure ulcer of other site, stage 2 | CPT/HCPCS: 11042; A6212 ==

== ENCOUNTER 2022-08-07 08:21 | Emergency (ER) | payer MEDICARE, MEDICAID, SELFPAY ==
[2022-08-07] VITALS (8 sets, daily range): BP systolic 137–172; BP diastolic 66–88; PULSE 91–98; RESP 12–19; TEMP 36.8; O2SAT 92–96; BMI 41.5
--- NOTE | 2022-08-07 08:54 | W.ED.SOB ---
HPI - SOB/Dyspnea General: Chief Complaint: Shortness of Breath/Dyspnea Stated Complaint: chest pain, nausea, body aches Time Seen by Provider: 08/07/22 08:28 Source: patient Mode of arrival: ambulatory History of Present Illness: HPI Narrative: 61 yo male presents to the emergency room with complaints of chest pain nausea body aches denies fever. Patient states that this is chronic neuropathic pain. He normally takes oxycodone 30 to 60 mg every 4 hours as needed. His prescription ran out and he has not been able to get a refill. He denies any recent falls. Pain does not radiate she does neck arms or back no associated shortness of breath. He relates all of the pain that he is having including chest pain as to being due to his chronic pain issues that he usually takes narcotics for. He has chronic swelling in his legs that he relates is unchanged. Denies any recent fever sweats or chills or flulike symptoms. MD elicited complaint: shortness of breath and cough Pertinent past history: COPD Onset (ago): minute(s) Timing: constant Severity: severe Relieving factors: medication (Per the patient symptoms these the symptoms usually takes his pain medications for) Known history of: congestive heart failure, diabetes and other (Chronic venous stasis edema) Associated symptoms: Reports extremity pain; Deny abdominal pain, chest congestion, chest pain, cough, diaphoresis, dizziness, fever(s), hemoptysis, lightheadedness, myalgias, nausea, orthopnea, palpitations, paresthesias, polydipsia, polyuria, rash, sense of impending doom, syncope or vomiting Treatment prior to arrival: none Review of Systems Const: Denies: fever(s), chills, fatigue, malaise or diaphoresis ENMT: Denies: throat pain, ear or mastoid pain, nasal discharge or nasal congestion Card: Reports: swelling of feet/ankles; Denies: chest pain, palpitations, lightheadedness, syncope or orthopnea Resp: Denies: hemoptysis or chest congestion GI: Denies: abdominal pain, nausea or vomiting : Denies: flank pain, dysuria, urinary frequency or urinary urgency Musc: Reports: neck pain, back pain and extremity pain Skin/Breast: Reports: lesions Neuro: Denies: dizziness Endo: Denies: polyuria or polydipsia PFSH ED PFSH: Medical History Acute on chronic heart failure with normal ejection fraction Altered mental state Anasarca Anasarca Ankylosing spondylitis Anxiety and depression CHF (congestive heart failure) Chronic heart failure with normal ejection fraction Chronic ulcer of left foot due to diabetes mellitus COPD (chronic obstructive pulmonary disease) Diabetes mellitus Hypertension Lymphadenopathy No pertinent family history Noncompliance with CPAP treatment Obstructive sleep apnea Opioid dependence Sepsis Sepsis due to undetermined organism Tobacco abuse Surgical History No pertinent past surgical history Family History Other Hypertension Social History Alcohol intake: never Physical Exam Const: COMMON NORMALS: no acute distress GENERAL APPEARANCE: cooperative and comfortable ORIENTATION/CONSCIOUSNESS: Yes awake, Yes oriented to person, Yes oriented to place and Yes oriented to time HENMT: COMMON NORMALS: normocephalic, atraumatic and hearing grossly normal bilaterally HEAD & SCALP: normocephalic and atraumatic Resp: COMMON NORMALS: normal respiratory effort, No retractions, No use of accessory muscles and clear to auscultation bilaterally AUSCULTATION: clear to auscultation bilaterally Cardio: COMMON NORMALS: regular rate, regular rhythm and No murmurs present (Cardio) RATE: regular rate RHYTHM: regular rhythm GI: COMMON NORMALS: Soft to palpation and No hepatosplenomegaly present AUSCULTATION: Yes normoactive bowel sounds PALPATION: Yes Soft to palpation, No Tenderness to palpation present (GI), No Guarding due to palpation present (GI) and Yes No hepatosplenomegaly present Extremity: OTHER: Chronic venous stasis edema with chronic thickening of the skin of the lower extremities. Neuro: SENSORIUM/ORIENTATION: Yes oriented to person, Yes oriented to place and Yes oriented to time Skin: COMMON NORMALS: no rashes or lesions noted GENERAL SKIN EXAM: no rashes or lesions noted Course Vital Signs: Vital signs: Vital Signs Temperature 98.3 F 08/07/22 08:28 Pulse Rate 96 08/07/22 11:30 Respiratory Rate 15 08/07/22 11:30 Blood Pressure 147/86 08/07/22 11:30 Pulse Oximetry 95 08/07/22 11:30 Oxygen Delivery Me thod 08/07/22 10:00 MDM - SOB/Dyspnea Medical Decision Making I was able to contact patient's primary care doctor directly. He was well acquainted with this patient unfortunately patient has not been to his office in quite some time and they are not able to refill his medications. Discussed with the patient that I was able to contact his primary care doctor and they did had not seen him in some time and were not able to refill his medications until he was seen. Also reviewed with him that we cannot refill chronic narcotics in the emergency room. This is especially difficult in a case for primary care doctor has not been filling them because they have not had an office visit. Patient states he felt that the doctor was not able to get him in for an office appointment. His primary care doctor had advised me that that was not the case. I did offer the patient other options including referral to a different primary care doctor to establish if he felt that access was an issue he declined. Initially he declined offers for clonidine and promethazine and then agreed to take Ross is given prescription for clonidine 0.1 twice daily and promethazine to use as needed for nausea and vomiting encouraged him to be seen by his primary care doctor or establish with another doctor as soon as he is able. Medical Records I reviewed the patient's medical records. Lab Data I reviewed the patient's lab results. 08/07/22 08:35 08/07/22 08:35 Labs/Radiology: Radiology Impressions Chest X-Ray 08/07/22 09:06 Impression: Atherosclerosis. Laboratory Results WBC 11.1 10^3/uL (4.0-10.0) H 08/07/22 08:35 RBC 3.77 10^6/uL (4.1-5.3) L 08/07/22 08:35 Hgb 11.7 g/dL (11.7-16.6) 08/07/22 08:35 Hct 37.4 % (42.0-52.0) L 08/07/22 08:35 MCV 99.2 fl (80-94) H 08/07/22 08:35 MCH 31.0 pg (28.0-34.0) 08/07/22 08:35 MCHC 31.3 g/dL (30.0-36.0) 08/07/22 08:35 RDW 13.7 % (12.1-15.1) 08/07/22 08:35 Plt Count 189 10^3/cmm (130-400) 08/07/22 08:35 MPV 11.8 fL (7.4-10.4) H 08/07/22 08:35 Neut % (Auto) 65.8 % 08/07/22 08:35 Lymph % (Auto) 23.1 % 08/07/22 08:35 [place] % (Auto) 5.7 % 08/07/22 08:35 Eos % (Auto) 4.4 % 08/07/22 08:35 Baso % (Auto) 0.5 % 08/07/22 08:35 Neut # (Auto) 7.28 10^3/uL (1.8-7.7) 08/07/22 08:35 Lymph # (Auto) 2.6 10^3/uL (0.8-4.8) 08/07/22 08:35 [place] # (Auto) 0.6 10^3/uL (0.2-0.9) 08/07/22 08:35 Eos # (Auto) 0.5 10^3/uL (0.0-0.8) 08/07/22 08:35 Baso # (Auto) 0.1 10^3/uL (0.0-0.1) 08/07/22 08:35 Nucleated RBC % (auto) 0 % 08/07/22 08:35 Nucleated RBCs # 0.0 /100WBC 08/07/22 08:35 Sodium 134 mmol/L (136-145) L 08/07/22 08:35 Potassium 4.7 mmol/L (3.5-5.1) 08/07/22 08:35 Chloride 107 mmol/L (98-107) 08/07/22 08:35 Carbon Dioxide 20 mmol/L (22-29) L 08/07/22 08:35 Anion Gap 11.7 (5-19) 08/07/22 08:35 BUN 26 mg/dL (8-23) H 08/07/22 08:35 Creatinine 2.3 mg/dL (0.7-1.2) H 08/07/22 08:35 GFR Calculation 28.9 mL/min (90-130) L 08/07/22 08:35 Glucose 184 mg/dL (65-115) H 08/07/22 08:35 Calculated Osmolality 288 mOsm/kg (285-295) 08/07/22 08:35 Calcium 8.2 mg/dL (8.5-10.5) L 08/07/22 08:35 Total Bilirubin 0.3 mg/dL (0.15-1.2) 08/07/22 08:35 AST 26 U/L (0-40) 08/07/22 08:35 ALT 36 U/L (0-41) 08/07/22 08:35 Alkaline Phosphatase 199 U/L (40-130) H 08/07/22 08:35 Troponin T Baseline 151 ng/L (0-15) H* 08/07/22 08:35 Troponin T 120 Minute 151.5 ng/L (0-15) H 08/07/22 10:24 Delta Troponin T 0.5 ABS# (0-10) 08/07/22 10:24 NT-Pro-B Natriuret Pep 1229 pg/mL (0-125) H 08/07/22 08:35 Total Protein 7.3 g/dL (6.6-8.7) 08/07/22 08:35 Albumin 3.2 g/dL (3.5-5.2) L 08/07/22 08:35 Globulin 4.1 g/dL (1.3-4.6) 08/07/22 08:35 Urine Color Yellow (Yellow) 08/07/22 09:50 Urine Appearance Clear (CLEAR) 08/07/22 09:50 Urine pH 6 (5-7) 08/07/22 09:50 Ur Specific [place] 1.015 (1.005-1.030) 08/07/22 09:50 Urine Protein 3+ (Negative) H 08/07/22 09:50 Urine Glucose (UA) 2+ (Normal) H 08/07/22 09:50 Urine Ketones Negative (Negative) 08/07/22 09:50 Urine Blood 2+ (Negative) H 08/07/22 09:50 Urine Nitrate Negative (Negative) 08/07/22 09:50 Urine Bilirubin Neg (Negative) 08/07/22 09:50 Urine Urobilinogen Norm mg/dL (Negative) 08/07/22 09:50 Ur Leukocyte Esterase Negative (Negative) 08/07/22 09:50 Urine RBC 0-4 /hpf (0-2) H 08/07/22 09:50 Urine WBC 0-4 /hpf (0-5) H 08/07/22 09:50 Ur Squamous Epith Cells 0-4 /hpf (0-5) H 08/07/22 09:50 Amorphous Sediment Not Reportable 08/07/22 09:50 Urine Bacteria 4+ /hpf (NONE) H 08/07/22 09:50 Discharge Plan Discharge Patient Disposition: Home Clinical Impression: Opioid dependence, Diabetes type 2, uncontrolled, Diabetic retinopathy Condition: Stable Prescriptions: New clonidine HCl 0.1 mg tablet 0.1 mg PO BID Qty: 20 0RF promethazine 25 mg tablet 25 mg PO Q6H PRN (Reason: nausea and vomiting) Qty: 20 0RF Discontinued ondansetron HCl [Zofran] 4 mg tablet 8 mg PO Q8H PRN (Reason: nausea and vomiting) Qty: 20 0RF Rx Instructions: Take 2 tablets by mouth every 8 hours as needed. amoxicillin 875 mg tablet 875 mg PO TID Qty: 9 0RF Rx Instructions: Take one tablet by mouth three times a day for 3 days. levofloxacin 250 mg tablet 250 mg PO Q48H Qty: 8 0RF Rx Instructions: 2 tabs on day one then one tab every other day until completed levofloxacin 500 mg tablet 500 mg PO DAILY Qty: 10 0RF linezolid 600 mg tablet 600 mg PO BID 6 Days Qty: 12 0RF amoxicillin-pot clavulanate [Augmentin] 500-125 mg tablet 1 tab PO BID Qty: 14 0RF ondansetron HCl [Zofran] 4 mg tablet 4 mg PO Q8H PRN (Reason: nausea and vomiting) Qty: 20 0RF No Action lidocaine 4 % gel 1 applic topical BID Qty: 30 2RF insulin aspart U-100 [Novolog Flexpen U-100 Insulin] 100 unit/mL (3 mL) insulin pen 15 unit SUBCUT BID Qty: 30 3RF Rx Instructions: 15 units subcut BID before meals. (DME) blood-glucose meter [Easy Touch Glucose Monitor] Misc See Rx Instructions .Route Qty: 1 3RF Rx Instructions: Check BS 4 times a day (DME) EasyGluco Test Strip See Rx Instructions .Route Qty: 200 3RF Rx Instructions: As directed (DME) lancets [Easy Touch Lancets] 28 gauge misc See Rx Instructions .Route Qty: 200 3RF Rx Instructions: As directed lidocaine HCl 2 % jelly 1 applic topical BID Qty: 30 2RF Levemir FlexTouch U-100 Insuln 100 unit/mL (3 mL) insulin pen See Rx Instructions .ROUTE .COMPLEX Qty: 45 0RF Dose Instruction: INJECT 50 UNITS SUBCUTANEOUSLY EVERY DAY Rx Instructions: INJECT 50 UNITS SUBCUTANEOUSLY EVERY DAY theophylline 300 mg tablet extended release 12 hr 300 mg PO DAILY Qty: 30 0RF Rx Instructions: take every evening oxycodone 30 mg tablet 30 - 60 mg PO Q4H PRN (Reason: Pain) 30 Days Qty: 240 0RF dextroamphetamine-amphetamine 10 mg tablet 10 mg PO BID 30 Days Qty: 60 0RF Saline Wound Wash 0.9 % aerosol,spray 1 applic topical BID 30 Days Qty: 210 3RF Fish Oil 120-180-500 mg Capsule 1 cap PO DAILY Discharge Orders: Discharge ED (Routine); Ordered 08/07/22 Ordered By: J Carlos Rascon Referrals: Vivek Dee DO [Primary Care Provider] - Discharge Diet: Usual diet Discharge Activity: Increase activity as tolerated Patient Instructions: Opioid Safety, Pain Management Activity Restrictions/Additional Instructions: You were seen today for complaints of chronic pain. Since you have an established physician who prescribes his chronic narcotics they cannot be filled in the emergency room for nonacute purposes. Incidental finding of your lab work today is your creatinine has worsened some compared to previous testing. You should follow-up with your primary care doctor and monitor this closely. You can use the clonidine 1 pill twice daily along with promethazine 1 every 6-8 hours as needed for symptoms of discomfort from not taking narcotics. Coding Level of Care Code ED Welfare Eligibility Worker for Koby Amezcua
--- NOTE | 2022-08-07 09:06 | XR_ITS ---
WS: [id number] Portable AP upright chest, 08/07/2022 Clinical Data: dyspnea/cough Comparison: Portable chest, 09/01/2021 Findings: No nodules, masses or effusions are seen. The heart is normal. The pulmonary vascularity is not increased. No pneumonia or pneumothorax is seen. The aortic arch and descending thoracic aorta s how minimal calcification and tortuosity. There are monitor leads on the chest wall. XR/XR chest 1V portable [id number] Impression: Atherosclerosis.
--- NOTE | 2022-08-07 09:06 | ECG_ITS ---
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 Measurements Intervals [place] Rate: 97 P: 52 [place]: 148 QRS: -29 QRSD: 110 T: 98 QT: 360 QTc: 459 Interpretive Statements SINUS RHYTHM BORDERLINE LEFT AXIS DEVIATION [QRS AXIS < -20] LEFT VENTRICULAR HYPERTROPHY AND ST-T CHANGE Compared to ECG 09/01/2021 19:11:26 Left ventricular hypertrophy now present ST (T wave) deviation now present Electronically Signed On 08-07-2022 12:45:04 MECHANIC INDUSTRIAL TRUCK by Corinna Castro M.D. [id number]
[2022-08-07 09:16] LABS: Basophils # 0.1 10^3/uL (0.0-0.1); Basophils % 0.5 %; Eosinophils # 0.5 10^3/uL (0.0-0.8); Eosinophils % 4.4 %; Hematocrit 37.4 % (42.0-52.0); Hemoglobin 11.7 g/dL (11.7-16.6); Lymphocytes # 2.6 10^3/uL (0.8-4.8); Lymphocytes % 23.1 %; Mean Corpuscular HGB Conc 31.3 g/dL (30.0-36.0); Mean Corpuscular Volume 99.2 fl (80-94); Mean Platelet Volume 11.8 fL (7.4-10.4); Monocytes # 0.6 10^3/uL (0.2-0.9); Monocytes % 5.7 %; Neutrophils # 7.28 10^3/uL (1.8-7.7); Neutrophils % 65.8 %; Nucleated Red Blood Cells % 0 %; Platelet Count 189 10^3/cmm (130-400); Red Blood Count 3.77 10^6/uL (4.1-5.3); Red Cell Distribution Width 13.7 % (12.1-15.1); White Blood Count 11.1 10^3/uL (4.0-10.0)
[2022-08-07 09:36] LABS: Alanine Aminotransferase 36 U/L (0-41); Albumin Level 3.2 g/dL (3.5-5.2); Alkaline Phosphatase 199 U/L (40-130); Anion Gap 11.7 (5-19); Aspartate Amino Transferase 26 U/L (0-40); Blood Urea Nitrogen 26 mg/dL (8-23); Calcium 8.2 mg/dL (8.5-10.5); Carbon Dioxide 20 mmol/L (22-29); Chloride 107 mmol/L (98-107); Globulin 4.1 g/dL (1.3-4.6); Glomerular Filtration Rate 28.9 mL/min (90-130); Glucose 184 mg/dL (65-115); NT Pro B Type Natriuretic Pept 1229 pg/mL (0-125); Osmolality Calculated 288 mOsm/kg (285-295); Potassium 4.7 mmol/L (3.5-5.1); Sodium 134 mmol/L (136-145); Total Bilirubin 0.3 mg/dL (0.15-1.2); Total Protein 7.3 g/dL (6.6-8.7)
[2022-08-07 09:54] LABS: Troponin(5th) Baseline 151 ng/L (0-15)
[2022-08-07 10:14] LABS: Add Urine Microscopic? YES; Bilirubin Urine Neg (Negative); Blood Urine 2+ (Negative); Glucose Urine UA 2+ (Normal); Ketones Urine Negative (Negative); Leukocyte Esterase Urine Negative (Negative); Nitrate Urine Negative (Negative); Protein Urine 3+ (Negative); RBC Urine 0-4 /hpf (0-2); Specific Gravity, Urine 1.015 (1.005-1.030); Urine Appearance Clear (CLEAR); Urine Color Yellow (Yellow); Urobilinogen Urine Norm (Negative); pH Urine 6 (5-7)
[2022-08-07 10:15] LABS: Add Urine Culture? Yes; Bacteria Urine 4+ /hpf; Squamous Epithelial Cell Urine 0-4 /hpf (0-5); WBC Urine 0-4 /hpf (0-5)
--- NOTE | 2022-08-07 11:18 | ECG_ITS ---
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 Measurements Intervals [place] Rate: 93 P: 66 [place]: 145 QRS: -36 QRSD: 104 T: 87 QT: 371 QTc: 462 Interpretive Statements SINUS RHYTHM LEFT AXIS DEVIATION [QRS AXIS < -30] LEFT VENTRICULAR HYPERTROPHY AND ST-T CHANGE [VOLTAGE CRITERIA PLUS ST/T ABNORMALITY] Compared to ECG 08/07/2022 08:31:43 No significant changes Electronically Signed On 08-07-2022 16:52:35 MACHINE SHORTHAND REPORTER by Corinna Castro M.D. [id number]
[2022-08-07 11:19] LABS: Troponin 5 2HR Delta 0.5 ABS# (0-10)
[2022-08-07 11:20] LABS: Troponin 5 2HR 151.5 ng/L (0-15)
--- NOTE | 2022-08-07 11:59 | PC.NURSE ---
This nurse was witness to the conversation between the provider and patient on options of seeing a different PCP and options of helping with detox off of opioids.
[2022-08-07] MEDS: cloNIDine 0.1 mg Tablet PO (12:02)
[2022-08-07] MEDS: ondansetron 4 MG Tablet PO (12:02)
== END 2022-08-07 12:11 | disposition home or self-care (01) ==
PROVIDERS: Emergency Provider Family Medicine; PCP Family Medicine
DX: F11.20 Opioid dependence, uncomplicated (principal); E11.319 Type 2 diabetes mellitus with unspecified diabetic retinopathy without macular edema; Z79.4 Long term (current) use of insulin; I11.0 Hypertensive heart disease with heart failure; I50.9 Heart failure, unspecified; J44.9 Chronic obstructive pulmonary disease, unspecified
CPT/HCPCS: 71045; 80053; 81001; 83880; 84484; 85025; 87077; 87086; 87186; 93005; 99285; Q0162

== ENCOUNTER 2022-08-15 16:06 | Emergency (ER) | payer MEDICARE, MEDICAID, SELFPAY ==
[2022-08-15 16:11] VITALS: BP 173/85; PULSE 92; RESP 15; TEMP 36.5; O2SAT 98; BMI 39.1
--- NOTE | 2022-08-15 16:16 | ECG_ITS ---
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 Measurements Intervals [place] Rate: 89 P: 63 [place]: 128 QRS: -39 QRSD: 108 T: 86 QT: 380 QTc: 463 Interpretive Statements SINUS RHYTHM POSSIBLE LEFT ATRIAL ENLARGEMENT [-0.1mV P-WAVE IN V1/V2] LEFT AXIS DEVIATION [QRS AXIS < -30] LEFT VENTRICULAR HYPERTROPHY AND ST-T CHANGE [VOLTAGE CRITERIA PLUS ST/T ABNORMALITY] Compared to ECG 08/07/2022 11:02:38 No significant changes Electronically Signed On 08-15-2022 19:00:35 LOADER HELPER by Deion Chin M.D. [id number]
--- NOTE | 2022-08-15 16:16 | XRR_ITS ---
PROCEDURE INFORMATION: Exam: XR Chest Exam date and time: 08/15/2022 4:22 PM Age: 62 years old Clinical indication: Cough and dyspnea; Additional info: Dyspnea/cough TECHNIQUE: Imaging protocol: Radiologic exam of the chest. Views: 1 view. COMPARISON: CR XR chest 1V portable [id number] 08/07/2022 9:18 AM FINDINGS: Lungs: Emphysematous changes. Mild pulmonary vascular congestion. Pleural spaces: Unremarkable. No pleural effusion. No pneumothorax. Heart/Mediastinum: Cardiomegaly. Bones/joints: Unremarkable. XR/XR chest 1V portable [id number] IMPRESSION: 1. Cardiomegaly. 2. Emphysematous changes. 3. Mild pulmonary vascular congestion.
--- NOTE | 2022-08-15 16:42 | ED_ITS ---
HPI - General Adult General: Chief complaint: General Medical Stated complaint: PASSED OUT Time Seen by Provider: 08/15/22 16:09 Source: patient Mode of arrival: ambulatory History of Present Illness: 62-year-old male presents emergency room complaining nausea vomiting diarrhea headaches cough for the last 7 days. Staff said he had a syncopal episode while being brought from cardiology clinic to the emergency room. He was seen several days ago at that time he was complaining of not being able to get his oxycodone he was taking up to 120 mg a day his primary care provider I talked at the time was no longer willing to prescribe for him because he was not making his office visits as he had been instructed. We have given him clonidine and promethazine to use for withdrawal symptoms. On arrival here he is awake and alert he relates all of his symptoms to not having his pain medications. He is insistent on being prescribed the oxycodone. States he has chronic pain issues and he is wanting to get established with the pain clinic since his previous primary care doctor is not willing to prescribe the oxycodone in the morning. At several points he and his are insistent that the only thing they want is to be prescribed the oxycodone fact he initially refuses any further evaluation of his condition for other possible causes. I was able to convince him to let us do some lab work. He denies chest or abdominal pain states he is very nauseous. It has been 10-14 days now since he has had any narcotics. Onset (ago): day(s) (-) Severity: moderate Quality: aching Pain Consistency: constant Relieving factors: none Exacerbating factors: none Associated symptoms: Reports chest pain, cough, diaphoresis, decreased appetite, dyspnea, headache(s), malaise, nausea, rash, short of breath, syncope, vomiting and weakness; Deny confusion, fevers/chills, palpitations or seizures Treatments prior to arrival: none Review of Systems Const: Reports: fatigue, malaise and diaphoresis; Denies: fever(s) or chills ENMT: Denies: throat pain, ear or mastoid pain, nasal discharge or nasal congestion Card: Reports: chest pain, irregular heart rhythm, edema, swelling of feet/ankles and syncope; Denies: palpitations Resp: Reports: dyspnea GI: Reports: nausea and vomiting; Denies: abdominal pain : Denies: flank pain, dysuria, urinary frequency or urinary urgency Musc: Reports: neck pain, back pain, extremity pain, extremity swelling, joint pain and joint swelling Skin/Breast: Reports: rash and pruritus Neuro: Reports: headache(s) and weakness in extremities; Denies: confusion PFSH ED PFSH: Medical History Acute on chronic heart failure with normal ejection fraction Altered mental state Anasarca Anasarca Ankylosing spondylitis Anxiety and depression CHF (congestive heart failure) Chronic heart failure with normal ejection fraction Chronic ulcer of left foot due to diabetes mellitus COPD (chronic obstructive pulmonary disease) Diabetes mellitus Hypertension Lymphadenopathy No pertinent family history Noncompliance with CPAP treatment Obstructive sleep apnea Opioid dependence Sepsis Sepsis due to undetermined organism Tobacco abuse Surgical History No pertinent past surgical history Family History Mother CAD (coronary artery disease) Father Diabetes Other Hypertension Denies family history of Clotting disorder Dementia Chronic kidney disease (CKD) Suicide Anesthesia complication Bleeding disorder Lung disease Cancer Stroke Social History Smoking and tobacco status: current every day smoker cigarettes Packs smoked per day: 2 Alcohol intake: never Physical Exam Const: COMMON NORMALS: no acute distress ORIENTATION/CONSCIOUSNESS: Yes awake, Yes oriented to person, Yes oriented to place and Yes oriented to time HENMT: COMMON NORMALS: normocephalic and atraumatic HEAD & SCALP: normocephalic and atraumatic Eye: COMMON NORMALS: Equal, round and reactive pupils present, EOMs intact bilaterally, conjunctivae normal and no scleral icterus CONJUNCTIVA: Yes conjunctivae normal PUPIL: Yes Equal, round and reactive pupils present Neck/C-Spine: COMMON NORMALS: full ROM, no lymphadenopathy and supple Lymph: LYMPHATIC: lymphedema bilateral lower extremity severe Resp: COMMON NORMALS: normal respiratory effort, No retractions, No use of accessory muscles and clear to auscultation bilaterally AUSCULTATION: clear to auscultation bilaterally Cardio: COMMON NORMALS: regular rate, regular rhythm and No murmurs present (Cardio) RATE: regular rate RHYTHM: regular rhythm GI: COMMON NORMALS: Soft to palpation and No hepatosplenomegaly present AUSCULTATION: Yes normoactive bowel sounds PALPATION: Yes Soft to palpation, No Tenderness to palpation present (GI), No Guarding due to palpation present (GI) and Yes No hepatosplenomegaly present Neuro: SENSORIUM/ORIENTATION: Yes oriented to person, Yes oriented to place and Yes oriented to time Skin: OTHER: Chronic skin changes lower extremities with scaling from persistent lymphedema there is some cracking and serous drainage from her leg. Course Vital Signs: Vital signs: Vital Signs Temperature 97.7 F 08/15/22 16:11 Pulse Rate 92 08/15/22 16:11 Respiratory Rate 15 08/15/22 16:11 Blood Pressure 173/85 08/15/22 16:11 Pulse Oximetry 98 08/15/22 16:11 Oxygen Delivery Me thod 08/15/22 16:11 MDM - General Adult Medical Decision Making Patient has mild acute exacerbation of the congestive heart failure offered to admit him for this he adamantly refuses. Initially he only wants prescription for oxycodone and is quite angry when advised we cannot do this and he would need to see his primary care or be referred to a pain clinic. Previously given him clonidine promethazine he states he is out of the clonidine. At this point in his past his withdrawal symptoms from stopping narcotics but is likely having chronic pain issues. He has underlying conditions which she initially started the narcotics for are still present. We had previously offered to set him up with a primary new primary care physician so they could refer him to pain clinic he had refused that the last time we seen him he is willing to do it at this time. We will try to get him into see one of the primary care doctors tomorrow. Hopefully get him referred to pain clinic. Despite multiple attempts he refuses admission for his exacerbation COPD. I did prescribe several medicati ons he has not been taking anything he has blood pressure markedly elevated it would be helpful for his heart failure to be on Lasix 40 mg daily also lisinopril 10 mg daily metoprolol 12.5 mg daily these will likely need to be titrated. For his chronic pain start him on pregabalin 75 mg twice daily. For his complaints of withdrawal symptoms and his blood pressure started on clonidine 0.05 twice daily this is a slight reduction dose from opioid use previously. Also given promethazine to use as needed. Medical Records I reviewed the patient's medical records. Lab Data I reviewed the patient's lab results. 08/15/22 16:30 08/15/22 16:30 Radiology Impressions Chest X-Ray 08/15/22 16:16 IMPRESSION: 1. Cardiomegaly. 2. Emphysematous changes. 3. Mild pulmonary vascular congestion. Laboratory Results WBC 11.3 10^3/uL (4.0-10.0) H 08/15/22 16:30 RBC 4.60 10^6/uL (4.1-5.3) 08/15/22 16:30 Hgb 14.3 g/dL (11.7-16.6) 08/15/22 16:30 Hct 44.4 % (42.0-52.0) 08/15/22 16:30 MCV 96.5 fl (80-94) H 08/15/22 16:30 MCH 31.1 pg (28.0-34.0) 08/15/22 16:30 MCHC 32.2 g/dL (30.0-36.0) 08/15/22 16:30 RDW 14.1 % (12.1-15.1) 08/15/22 16:30 Plt Count 171 10^3/cmm (130-400) 08/15/22 16:30 MPV 11.6 fL (7.4-10.4) H 08/15/22 16:30 Neut % (Auto) 72.4 % 08/15/22 16:30 Lymph % (Auto) 18.0 % 08/15/22 16:30 Lyman % (Auto) 5.6 % 08/15/22 16:30 Eos % (Auto) 3.1 % 08/15/22 16:30 Baso % (Auto) 0.5 % 08/15/22 16:30 Neut # (Auto) 8.19 10^3/uL (1.8-7.7) H 08/15/22 16:30 Lymph # (Auto) 2.0 10^3/uL (0.8-4.8) 08/15/22 16:30 Lyman # (Auto) 0.6 10^3/uL (0.2-0.9) 08/15/22 16:30 Eos # (Auto) 0.4 10^3/uL (0.0-0.8) 08/15/22 16:30 Baso # (Auto) 0.1 10^3/uL (0.0-0.1) 08/15/22 16:30 Nucleated RBC % (auto) 0 % 08/15/22 16:30 Nucleated RBCs # 0.0 /100WBC 08/15/22 16:30 Sodium 141 mmol/L (136-145) 08/15/22 16:30 Potassium 4.6 mmol/L (3.5-5.1) 08/15/22 16:30 Chloride 109 mmol/L (98-107) H 08/15/22 16:30 Carbon Dioxide 21 mmol/L (22-29) L 08/15/22 16:30 Anion Gap 15.6 (5-19) 08/15/22 16:30 BUN 18 mg/dL (8-23) 08/15/22 16:30 Creatinine 1.9 mg/dL (0.7-1.2) H 08/15/22 16:30 GFR Calculation 35.9 mL/min (90-130) L 08/15/22 16:30 Glucose 162 mg/dL (65-115) H 08/15/22 16:30 Calculated Osmolality 297 mOsm/kg (285-295) H 08/15/22 16:30 Calcium 8.6 mg/dL (8.5-10.5) 08/15/22 16:30 Total Bilirubin 0.4 mg/dL (0.15-1.2) 08/15/22 16:30 AST 26 U/L (0-40) 08/15/22 16:30 ALT 16 U/L (0-41) 08/15/22 16:30 Alkaline Phosphatase 182 U/L (40-130) H 08/15/22 16:30 Troponin T Baseline 145 ng/L (0-15) H* 08/15/22 16:30 NT-Pro-B Natriuret Pep 3668 pg/mL (0-125) H 08/15/22 16:30 Total Protein 7.0 g/dL (6.6-8.7) 08/15/22 16:30 Albumin 3.1 g/dL (3.5-5.2) L 08/15/22 16:30 Globulin 3.9 g/dL (1.3-4.6) 08/15/22 16:30 Discharge Plan Discharge Patient Disposition: Home Clinical Impression: CHF exacerbation, Opioid dependence, Diabetes type 2, uncontrolled, Benign essential HTN, Lymphedema Condition: Stable Prescriptions: New Lasix 40 mg tablet 40 mg PO DAILY Qty: 30 0RF lisinopril 10 mg tablet 10 mg PO DAILY Qty: 30 0RF Toprol XL 25 mg tablet extended release 24 hr 12.5 mg PO DAILY Qty: 30 0RF clonidine HCl 0.1 mg tablet 0.05 mg PO Q12H Qty: 30 0RF promethazine 25 mg tablet 25 mg PO Q6H PRN (Reason: nausea and vomiting) Qty: 20 0RF Lyrica 75 mg capsule 75 mg PO BID Qty: 60 0RF Discontinued theophylline 300 mg tablet extended release 12 hr 300 mg PO DAILY PRN Rx Instructions: take every evening clonidine HCl 0.1 mg tablet 0.1 mg PO BID Qty: 20 0RF No Action insulin aspart U-100 [Novolog Flexpen U-100 Insulin] 100 unit/mL (3 mL) insulin pen 16 unit SUBCUT TID Rx Instructions: 15 units subcut BID before meals. Discharge Orders: Discharge ED (Routine); Ordered 08/15/22 Ordered By: J Carlos Rascon Referrals: Vivek Dee, [Primary Care Provider] - Discharge Diet: Usual diet Discharge Activity: Increase activity as tolerated Patient Instructions: Opioid Safety, Pain Management Activity Restrictions/Additional Instructions: You were seen today with complaints of diarrhea headache and body aches. You chose to limit her work-up so we did not do the C. difficile to evaluate your diarrhea. The remainder of your work-up showed exacerbation of your heart failure. Your kidney functions actually improved. Coding Level of Care Code ED Rat Exterminator for Anibalg Fwd Exam Comprehensive
[2022-08-15 16:45] LABS: Basophils # 0.1 10^3/uL (0.0-0.1); Basophils % 0.5 %; Eosinophils # 0.4 10^3/uL (0.0-0.8); Eosinophils % 3.1 %; Hematocrit 44.4 % (42.0-52.0); Hemoglobin 14.3 g/dL (11.7-16.6); Mean Corpuscular HGB Conc 32.2 g/dL (30.0-36.0); Mean Corpuscular Hemoglobin 31.1 pg (28.0-34.0); Mean Corpuscular Volume 96.5 fl (80-94); Mean Platelet Volume 11.6 fL (7.4-10.4); Monocytes # 0.6 10^3/uL (0.2-0.9); Monocytes % 5.6 %; Neutrophils # 8.19 10^3/uL (1.8-7.7); Neutrophils % 72.4 %; Nucleated Red Blood Cells % 0 %; Platelet Count 171 10^3/cmm (130-400); Red Cell Distribution Width 14.1 % (12.1-15.1); White Blood Count 11.3 10^3/uL (4.0-10.0)
[2022-08-15] MEDS: ondansetron 2 mg/ML SDV 2 mL 4 MG IVP (17:05)
[2022-08-15 17:25] LABS: Albumin Level 3.1 g/dL (3.5-5.2); Alkaline Phosphatase 182 U/L (40-130); Blood Urea Nitrogen 18 mg/dL (8-23); Calcium 8.6 mg/dL (8.5-10.5); Carbon Dioxide 21 mmol/L (22-29); Chloride 109 mmol/L (98-107); Globulin 3.9 g/dL (1.3-4.6); Glomerular Filtration Rate 35.9 mL/min (90-130); Glucose 162 mg/dL (65-115); NT Pro B Type Natriuretic Pept 3668 pg/mL (0-125); Osmolality Calculated 297 mOsm/kg (285-295); Sodium 141 mmol/L (136-145); Total Bilirubin 0.4 mg/dL (0.15-1.2)
[2022-08-15 17:30] LABS: Troponin(5th) Baseline 145 ng/L (0-15)
[2022-08-15 17:39] LABS: Alanine Aminotransferase 16 U/L (0-41); Anion Gap 15.6 (5-19); Aspartate Amino Transferase 26 U/L (0-40); Potassium 4.6 mmol/L (3.5-5.1)
--- NOTE | 2022-08-16 09:12 | DCPLANNER ---
Addendum entered by Angela Humphreys 08/21/22 12:28: Patient had a follow up appointment scheduled with Dr. Lincoln at [facility] - patient did attend appointment. Original Note: graphic design manager had message to speak with patient about getting established with a primary care physician. graphic design manager spoke with patients , who stated that patient would like help in getting established with a primary care. graphic design manager called [facility], gave clinic patients information. A follow up appointment was scheduled for Saturday, August 20, 2022 at 7:00 with . graphic design manager gave patients the appointment information.
== END 2022-08-15 18:31 | disposition home or self-care (01) ==
PROVIDERS: Emergency Provider Family Medicine; PCP Family Medicine
DX: F11.23 Opioid dependence with withdrawal (principal); I11.0 Hypertensive heart disease with heart failure; I50.9 Heart failure, unspecified; R01.1 Cardiac murmur, unspecified; E11.9 Type 2 diabetes mellitus without complications; I89.0 Lymphedema, not elsewhere classified; L98.499 Non-pressure chronic ulcer of skin of other sites with unspecified severity; R94.31 Abnormal electrocardiogram [ECG] [EKG]; F17.210 Nicotine dependence, cigarettes, uncomplicated; Z79.4 Long term (current) use of insulin; J44.9 Chronic obstructive pulmonary disease, unspecified
CPT/HCPCS: 71045; 80053; 83880; 84484; 85025; 93005; 96374; 99205; 99285; J2405

== ENCOUNTER → 2022-08-19 13:50 | Outpatient (BNVA) | payer MEDICARE, MEDICAID, SELFPAY | PROVIDERS: PCP Family Medicine; Visit Provider Thoracic Surgery (Cardiothoracic Vascular Surgery) | DX: I96 Gangrene, not elsewhere classified (principal); E11.621 Type 2 diabetes mellitus with foot ulcer; L89.892 Pressure ulcer of other site, stage 2 | CPT/HCPCS: 11042 ==

== ENCOUNTER → 2022-09-25 16:13 | Outpatient (BNVA) | payer MEDICARE, MEDICAID, SELFPAY | PROVIDERS: PCP Family Medicine Adult Medicine; Visit Provider Thoracic Surgery (Cardiothoracic Vascular Surgery) | DX: I96 Gangrene, not elsewhere classified (principal); E11.621 Type 2 diabetes mellitus with foot ulcer; L89.892 Pressure ulcer of other site, stage 2 | CPT/HCPCS: 11042; 97597 ==

== ENCOUNTER → 2022-10-30 15:52 | Outpatient (BNVA) | payer MEDICARE, MEDICAID, SELFPAY | PROVIDERS: PCP Family Medicine Adult Medicine; Visit Provider Thoracic Surgery (Cardiothoracic Vascular Surgery) | DX: I96 Gangrene, not elsewhere classified (principal); E11.621 Type 2 diabetes mellitus with foot ulcer; L89.892 Pressure ulcer of other site, stage 2; Z09 Encounter for follow-up examination after completed treatment for conditions other than malignant neoplasm | CPT/HCPCS: 97597; A6219 ==

== ENCOUNTER → 2022-11-13 15:23 | Outpatient (BNVA) | payer MEDICARE, MEDICAID, SELFPAY | PROVIDERS: PCP Family Medicine Adult Medicine; Visit Provider Thoracic Surgery (Cardiothoracic Vascular Surgery) | DX: I96 Gangrene, not elsewhere classified (principal); L89.892 Pressure ulcer of other site, stage 2; E11.621 Type 2 diabetes mellitus with foot ulcer | CPT/HCPCS: 99212 ==

== ENCOUNTER 2022-11-14 17:11 | Outpatient (CLI) | payer MEDICARE, MEDICAID, SELFPAY ==
--- NOTE | 2022-11-14 | MR_ITS ---
WS: [id number] MRI LUMBAR SPINE NONCONTRAST TECHNIQUE: Sagittal T1, T2 and STIR imaging. Axial T1 and T2 imaging. CLINICAL INFORMATION: LUMBAR SPINAL STENOSIS, LUBOSACRAL SPONDYLOSIS COMPARISON: MRI lumbar and CT 2019 FINDINGS: Mild lumbar curve. No acute compression. Disc bulging worse at L3-L4 and L4-L5. Slight anterolisthesi s L4 on L5. Disc space narrowing L3-L4 and L4-L5 has progressed since the prior MRI. L1-L2: Mild disc bulging with mild central canal stenosis. Moderate facet arthropathy. Foramen are pa tent. This is progressed compared to previous. L2-L3: Mild annular bulging. Moderate to severe narrowing of the thecal sac with moderate facet arthr opathy. Prominent epidural fat contributes to stenosis. Mild LEFT foraminal narrowing. Central canal stenosis progressed compared to the prior MRI. L3-L4: Mild disc bulging and osteophytic ridging. Moderate to severe central canal stenosis progresse d compared to previous. Moderate facet arthropathy. Moderate RIGHT and mild LEFT foraminal narrowing. L4-L5: Slight anterolisthesis L4 on L5. Mild to moderate central canal stenosis.Moderate to severe RI GHT and mild LEFT foraminal narrowing. Advanced facet arthropathy. L5-S1: No significant disc bulging. Moderate facet arthropathy. Spinal canal and foramen are patent. Visualized pelvic bony structures: Normal. Paravertebral soft tissues: Normal. MR/MR lumbar spine wo con* [id number] IMPRESSION: 1. Mild lumbar curve. Progressed disc space narrowing L3-L4 and L4-L5 compared to the prior MRI. Slight anterolisthesis L4 on L5. 2. Moderate to severe central canal stenosis L2-L3 due to mild disc bulging in combination with facet arthropathy and ligamentum flavum hypertrophy with prom inent epidural fat. 3. Moderate to severe narrowing of the thecal sac at L3-L4 with impingement on the traversing RIGHT L4 nerve root. Moderate RIGHT foraminal narrowing impinge s the exiting L3 nerve root. 4. Mild to moderate central canal stenosis L4-L5 with slight anterolisthesis. Moderate to severe RIGHT L4-L5 foraminal narrowing impinges the exiting RIGHT L 4 nerve root. 5. Mild LEFT L2-L3 foraminal narrowing. 6. Moderate to advanced facet arthropathy worse at L4-L5 and L5-S1.
== END 2022-11-14 17:12 | disposition home or self-care (01) ==
PROVIDERS: PCP Family Medicine Adult Medicine; Visit Provider Nurse Practitioner Psychiatric/Mental Health
DX: M48.061 Spinal stenosis, lumbar region without neurogenic claudication (principal); M47.817 Spondylosis without myelopathy or radiculopathy, lumbosacral region; M47.816 Spondylosis without myelopathy or radiculopathy, lumbar region
CPT/HCPCS: 72148

== ENCOUNTER 2022-12-16 13:30 | Outpatient (CLI) | payer MEDICARE, MEDICAID, SELFPAY ==
--- NOTE | 2022-12-16 13:30 | USCV_ITS ---
Mark Katz Age: 62 Gender: M : 1960 Exam Date: 12/16/2022 13:55 Ordering Phys: Kaylie Wheeler MD ([email or web address]) Technologist: [place] [facility] [place]: chf BP: 120 / 80 HR: 97 Rhythm: Sinus Technical Quality: Adequate MEASUREMENTS (Male / Female) Normal Values 2D ECHO LV Diastolic Diameter PLAX 4.6 cm 4.2 - 5.9 / 3.9 - 5.3 cm LV Systolic Diameter PLAX 2.5 cm IVS Diastolic Thickness 1.4 cm 0.6 - 1.0 / 0.6 - 0.9 cm IVS Systolic Thickness 1.8 cm LVPW Diastolic Thickness 1.4 cm 0.6 - 1.0 / 0.6 - 0.9 cm LVPW Systolic Thickness 1.6 cm LVOT Diameter 2.4 cm LV Ejection Fraction 2D Teich 76.3 % LV Ejection Fraction MOD 2C 57.1 % LV Ejection Fraction 2C AL 58.0 % LA Diameter 4.0 cm M-MODE Aortic Annulus Diameter 3.6 cm LA Ao Ratio MM 1.2 DOPPLER AV Peak Velocity 281.3 cm/s LVOT Peak Velocity 125.0 cm/s AV Area Cont Eq vti 2.4 cm squared AV Area Cont Eq pk 1.9 cm squared MV Area PHT 5.0 cm squared Mitral E to A Ratio 1.2 MV E' Velocity 85.5 cm/s Mitral E to MV E' Ratio 20.9 Mitral E to LV E' Lateral Ratio 19.6 Mitral E to LV E' Septal Ratio 22.6 TR Peak Velocity 194.8 cm/s TR Peak Gradient 15.2 mmHg TV Peak E Velocity 101.0 cm/s Right Atrial Pressure 3.0 mmHg Pulmonary Artery Systolic Pressu 18.2 mmHg RV Acceleration Time 0.2 s FINDINGS Left Ventricle Normal left ventricular size and systolic function, EF 59 %. Moderate left ventricular hypertrophy. Grade III/IV diastolic dysfunction (restrictive filling pattern), severely elevated filling pressures. Right Ventricle The right ventricle is normal in size and function. Right Atrium The right atrium is normal in size. Left Atrium Mildly increased left atrial size. Mitral Valve Thickened mitral valve. Moderate mitral annular calcification. Aortic Valve Thickened aortic valve. Mild aortic valve stenosis, mean gradient 15.3 mmHg, NASIMA 2.4 cm squared. Peak velocity of 2.8 m/s with a peak gradient of 30 mmHg Tricuspid Valve Trace tricuspid valve regurgitation. Pulmonic Valve Pulmonic valve not well visualized. Pericardium Normal pericardium without effusion. Aorta Normal ascending aorta dimension. IVC The inferior vena cava appears normal. CONCLUSIONS Normal left ventricular size and systolic function, EF 59 %. Moderate left ventricular hypertrophy. Grade III/IV diastolic dysfunction (restrictive filling pattern), severely elevated filling pressures. Mild aortic valve stenosis, mean gradient 15.3 mmHg, NASIMA 2.4 cm squared. Peak velocity of 2.8 m/s with a peak gradient of 30 mmHg. Trace tricuspid valve regurgitation. Estimated pulmonary artery peak systolic pressure 18 mmHg There is no pericardial effusion. Technically difficult study because of the poor ultrasonic window Compared to the study from 02/28/2021, there is development of aortic valve stenosis Dr Kaylie Wheeler MD FAC (Electronically Signed) Final Date: 17 Dec 2022 09:31 S
== END 2022-12-16 13:31 | disposition home or self-care (01) ==
LOC: RAD 13:36
PROVIDERS: PCP Family Medicine Adult Medicine; Visit Provider Internal Medicine Cardiovascular Disease
DX: I10 Essential (primary) hypertension (principal); I50.9 Heart failure, unspecified; M79.669 Pain in unspecified lower leg; M79.89 Other specified soft tissue disorders; R06.02 Shortness of breath
CPT/HCPCS: 93306

== ENCOUNTER → 2023-01-21 13:25 | Outpatient (BNVA) | payer MEDICARE, MEDICAID, SELFPAY | PROVIDERS: PCP Family Medicine Adult Medicine; Visit Provider Internal Medicine Cardiovascular Disease | DX: J43.9 Emphysema, unspecified (principal); G47.33 Obstructive sleep apnea (adult) (pediatric); N18.30 Chronic kidney disease, stage 3 unspecified; L98.499 Non-pressure chronic ulcer of skin of other sites with unspecified severity; I89.0 Lymphedema, not elsewhere classified; F11.20 Opioid dependence, uncomplicated; I12.9 Hypertensive chronic kidney disease with stage 1 through stage 4 chronic kidney disease, or unspecified chronic kidney disease; E11.22 Type 2 diabetes mellitus with diabetic chronic kidney disease; F17.210 Nicotine dependence, cigarettes, uncomplicated; Z79.4 Long term (current) use of insulin | CPT/HCPCS: 99214 ==

== ENCOUNTER → 2023-04-28 14:18 | Outpatient (BNVA) | payer MEDICARE, MEDICAID, SELFPAY | PROVIDERS: PCP Family Medicine Adult Medicine; Visit Provider Nurse Practitioner Family | DX: I89.0 Lymphedema, not elsewhere classified (principal); L97.822 Non-pressure chronic ulcer of other part of left lower leg with fat layer exposed | CPT/HCPCS: 97597; 97598; 99213; A6210; A6252 ==

== ENCOUNTER → 2023-04-30 14:44 | Outpatient (BNVA) | payer MEDICARE, MEDICAID, SELFPAY | PROVIDERS: PCP Family Medicine Adult Medicine; Visit Provider Nurse Practitioner Family | DX: I89.0 Lymphedema, not elsewhere classified (principal); L97.822 Non-pressure chronic ulcer of other part of left lower leg with fat layer exposed | CPT/HCPCS: 29581; A6210; A6252 ==

== ENCOUNTER → 2023-05-02 11:05 | Outpatient (BNVA) | payer MEDICARE, MEDICAID, SELFPAY | PROVIDERS: Visit Provider Internal Medicine | DX: E11.622 Type 2 diabetes mellitus with other skin ulcer; L97.309 Non-pressure chronic ulcer of unspecified ankle with unspecified severity; E11.65 Type 2 diabetes mellitus with hyperglycemia; E11.319 Type 2 diabetes mellitus with unspecified diabetic retinopathy without macular edema; E11.40 Type 2 diabetes mellitus with diabetic neuropathy, unspecified; E11.621 Type 2 diabetes mellitus with foot ulcer; Z79.4 Long term (current) use of insulin | CPT/HCPCS: 99214 ==

== ENCOUNTER 2023-05-05 14:17 | Outpatient (RCR) | payer MEDICARE, MEDICAID, SELFPAY | END 2023-05-10 23:59 | disposition home or self-care (01) | LOC: SPT 14:17 | PROVIDERS: Visit Provider Family Medicine | DX: I89.0 Lymphedema, not elsewhere classified (principal) | CPT/HCPCS: 29581; 97140; 97162 ==

== ENCOUNTER → 2023-05-07 16:15 | Outpatient (BNVA) | payer MEDICARE, MEDICAID, SELFPAY | PROVIDERS: Visit Provider Thoracic Surgery (Cardiothoracic Vascular Surgery) | DX: Z09 Encounter for follow-up examination after completed treatment for conditions other than malignant neoplasm (principal) | CPT/HCPCS: 99212 ==

== ENCOUNTER 2023-05-11 06:00 | Outpatient (RCR) | payer MEDICARE, MEDICAID, SELFPAY | END 2023-06-10 23:59 | disposition home or self-care (01) | LOC: SPT 06:00 | PROVIDERS: Visit Provider Family Medicine | DX: I89.0 Lymphedema, not elsewhere classified (principal) | CPT/HCPCS: 29581; 97140 ==

== ENCOUNTER 2023-06-11 06:00 | Outpatient (RCR) | payer MEDICARE, MEDICAID, SELFPAY | END 2023-07-10 23:59 | disposition home or self-care (01) | LOC: SPT 06:00 | PROVIDERS: Visit Provider Family Medicine | DX: I89.0 Lymphedema, not elsewhere classified (principal) | CPT/HCPCS: 29581; 97140 ==

== ENCOUNTER 2023-08-07 11:55 | Outpatient (CLI) | payer MEDICARE, MEDICAID, SELFPAY ==
[2023-08-07 12:50] LABS: Estmated Average Glucose 137; Hemoglobin A1C 6.4 % (4.0-6.0)
[2023-08-07 12:52] LABS: Alanine Aminotransferase 17 U/L (0-41); Albumin Level 3.5 g/dL (3.5-5.2); Alkaline Phosphatase 297 U/L (40-130); Anion Gap 15.8 (5-19); Aspartate Amino Transferase 20 U/L (0-40); Blood Urea Nitrogen 45 mg/dL (8-23); Calcium 8.7 mg/dL (8.5-10.5); Carbon Dioxide 20 mmol/L (22-29); Chloride 108 mmol/L (98-107); Chol HDL Ratio 5.57 mg/dL (1.0-5.00); Cholesterol 167 mg/dL (0-200); Globulin 3.5 g/dL (1.3-4.6); Glucose 163 mg/dL (65-115); HDL Cholesterol 30 mg/dL (60-100); LDL Cholesterol Calculated 106 mg/dL (50-129); LDL HDL Ratio 3.53 RATIO (0.00-3.22); Osmolality Calculated 303 mOsm/kg (285-295); Potassium 4.8 mmol/L (3.5-5.1); Sodium 139 mmol/L (136-145); Total Bilirubin 0.4 mg/dL (0.15-1.2); Triglycerides 157 mg/dL (0-150)
[2023-08-07 12:59] LABS: Creatinine Urine, Random 129 mg/dL (39-259)
[2023-08-07 14:20] LABS: Microalbum Creatinine Ratio Ur 6419 mg/dL (0-20); Microalbumin Random Urine 828 ug/dL (0-20)
== END 2023-08-07 11:56 | disposition home or self-care (01) ==
LOC: LAB 11:56
PROVIDERS: Visit Provider Internal Medicine
DX: E11.622 Type 2 diabetes mellitus with other skin ulcer (principal); L97.309 Non-pressure chronic ulcer of unspecified ankle with unspecified severity; E11.65 Type 2 diabetes mellitus with hyperglycemia; E11.319 Type 2 diabetes mellitus with unspecified diabetic retinopathy without macular edema
CPT/HCPCS: 36415; 80053; 80061; 82044; 83036

== ENCOUNTER → 2023-08-20 12:24 | Outpatient (BNVA) | payer MEDICARE, MEDICAID, SELFPAY | PROVIDERS: PCP Family Medicine Adult Medicine; Visit Provider Internal Medicine | DX: E11.65 Type 2 diabetes mellitus with hyperglycemia (principal); E11.622 Type 2 diabetes mellitus with other skin ulcer; E11.319 Type 2 diabetes mellitus with unspecified diabetic retinopathy without macular edema; L97.529 Non-pressure chronic ulcer of other part of left foot with unspecified severity; N18.9 Chronic kidney disease, unspecified; Z79.4 Long term (current) use of insulin | CPT/HCPCS: 36415; 80048; 99214 ==

== ENCOUNTER → 2024-01-14 15:23 | Outpatient (BNVA) | payer MEDICARE, SELFPAY | PROVIDERS: PCP Family Medicine Adult Medicine; Visit Provider Family Medicine Adult Medicine | DX: E11.622 Type 2 diabetes mellitus with other skin ulcer (principal); L97.309 Non-pressure chronic ulcer of unspecified ankle with unspecified severity | CPT/HCPCS: 80053; 83036; 85025 ==

== ENCOUNTER → 2024-06-21 15:21 | Outpatient (BNVA) | payer MEDICARE, SELFPAY | PROVIDERS: PCP Family Medicine Adult Medicine; Visit Provider Podiatrist Foot & Ankle Surgery | DX: E11.21 Type 2 diabetes mellitus with diabetic nephropathy (principal); I73.9 Peripheral vascular disease, unspecified; E11.8 Type 2 diabetes mellitus with unspecified complications; M21.41 Flat foot [pes planus] (acquired), right foot; M21.42 Flat foot [pes planus] (acquired), left foot; I89.0 Lymphedema, not elsewhere classified; L60.3 Nail dystrophy; Z79.4 Long term (current) use of insulin | CPT/HCPCS: 11721; 99213 ==

== ENCOUNTER → 2024-09-20 15:10 | Outpatient (BNVA) | payer MEDICARE, OTHER, SELFPAY | PROVIDERS: PCP Family Medicine Adult Medicine; Visit Provider Podiatrist Foot & Ankle Surgery | DX: E11.21 Type 2 diabetes mellitus with diabetic nephropathy (principal); L60.3 Nail dystrophy; L84 Corns and callosities; I73.9 Peripheral vascular disease, unspecified; M21.41 Flat foot [pes planus] (acquired), right foot; M21.42 Flat foot [pes planus] (acquired), left foot; I89.0 Lymphedema, not elsewhere classified; E11.8 Type 2 diabetes mellitus with unspecified complications; G62.89 Other specified polyneuropathies; Z79.4 Long term (current) use of insulin | CPT/HCPCS: 11056; 11721; 99213 ==

== ENCOUNTER 2024-11-02 11:59 | Emergency (ER) | payer MEDICARE, SELFPAY ==
--- NOTE | 2024-11-02 12:03 | XR_ITS ---
WS: [id number] Exam: XR chest 1V portable [id number] Date/Time of Exam: 11/02/2024 12:06 PM Reason For Exam: sob Comparison 08/15/2022. The lungs are fully inflated and clear. There is increased pulmonary vascularity noted. Normal heart size. Small RIGHT basal pleural effusion. The mediastinum is normal in contour. Bony structures are intact. IMPRESSION1. Increased pulmonary vascularity and small RIGHT basal pleural effusion. Some degree of early cardiac decompensation is not excluded.
[2024-11-02 12:06] VITALS: BP 144/68; PULSE 97; RESP 20; TEMP 36.9; O2SAT 95; BMI 39.1
--- NOTE | 2024-11-02 12:25 | W.ED.SOB ---
HPI - SOB/Dyspnea General: Chief Complaint: Shortness of Breath/Dyspnea Stated Complaint: SOB Time Seen by Provider: 11/02/24 12:24 History of Present Illness: HPI Narrative: 64-year-old male presents emergency room complaining of increasing shortness of breath. Patient has a known history of diabetes he has end-stage renal disease he gets dialysis Tuesdays and Saturdays. He did get his Friday run of dialysis which would have been 3 days ago. That particular run was normal been doing well but after that he began develop increasing shortness of breath he states he had cough cold symptoms like an upper respiratory infection. He is a regular smoker he has been out of his albuterol the last several days. He is due for dialysis today was not able to get there. He has chronic lymphedema of the lower extremities has worsening swelling lately has had some increasing orthopnea. He denies any hemoptysis no discolored sputum. No fever. Denies chest pain or abdominal pain Associated symptoms: Reports orthopnea; Deny abdominal pain, chest pain or fever(s) Related Data Home Medications ?Medication ?Instructions ?Recorded ?Confirmed blood-glucose meter,continuous 08/20/23 11/02/24 (Dexcom G7 Line O Scribe Operator) blood-glucose sensor (Dexcom G7 08/20/23 11/02/24 Sensor device) calcium acetate 667 mg tablet 1,334 mg PO TID 01/27/24 11/02/24 sevelamer carbonate 800 mg tablet 1,600 mg PO TID 11/02/24 11/02/24 vit B,C-folic ac 800 mcg-zinc 12.5 1 tab PO DAILY 11/02/24 11/02/24 mg-selen-D3 2,000 unit-vit E tablet (RenaPlex-D) Previous Rx's ?Medication ?Instructions ?Recorded blood sugar diagnostic (Blood #300 ea 05/07/23 Glucose Test strips) blood-glucose meter #1 ea 05/07/23 lancets #300 ea 05/07/23 albuterol sulfate 90 mcg/actuation 2 puff inhalation Q6H PRN 02/26/24 aerosol inhaler (Ventolin HFA) bronchospasm #8.5 grams insulin glargine U-300 conc 300 36 unit (0.12 mL) SUBCUT DAILY 02/26/24 unit/mL (1.5 mL) subcutaneous pen #4.5 mL (Toujeo SoloStar U-300 Insulin) loratadine 10 mg tablet (Claritin) 10 mg PO DAILY #90 tabs 02/26/24 torsemide 20 mg tablet 40 mg (2 x 20 mg) PO DAILY #30 tabs 02/26/24 insulin lispro 100 unit/mL 15 unit (0.15 mL) SUBCUT TID #45 mL 05/06/24 subcutaneous pen (Humalog KwikPen (U-100) Insulin) Diabetic shoes #1 ea 06/21/24 lidocaine 5 % topical patch 3 patch topical DAILY #30 ea 09/20/24 tramadol 50 mg tablet 50 mg PO Q8H PRN pain 30 days #60 10/18/24 tabs ipratropium 0.5 mg-albuterol 3 mg 3 ml inhalation Q4H PRN shortness 11/02/24 (2.5 mg base)/3 mL nebulization of breath or wheezing #90 mL soln Allergies Allergy/AdvReac Type Severity Reaction Status Date / Time nalbuphine (From Nubain) Allergy ALGY-Rash Verified 06/21/24 15:52 prochlorperazine (From Allergy EPS Verified 06/21/24 15:52 Compazine) Review of Systems Const: Denies: fever(s) or chills Card: Reports: edema, swelling of feet/ankles, dyspnea on exertion and orthopnea; Denies: chest pain Resp: Reports: dyspnea GI: Denies: abdominal pain : Denies: dysuria, urinary frequency or urinary urgency Musc: Denies: neck pain or back pain Skin/Breast: Denies: rash PFSH ED PFSH: Medical History ESRD (end stage renal disease) Central line January 2024 with dialysis x3 week Diabetic retinopathy 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 Diabetic neuropathy associated with diabetes mellitus due to underlying condition Opioid dependence Followed by [facility] in [place] Tobacco abuse COPD (chronic obstructive pulmonary disease) Noncompliance with CPAP treatment Obstructive sleep apnea Hypertension Anxiety and depression Lymphadenopathy Surgical History Hx of vasectomy Hx of cholecystectomy No pertinent past surgical history Family History Mother CAD (coronary artery disease) Father Diabetes Other Hypertension Denies family history of Clotting disorder Dementia Chronic kidney disease (CKD) Suicide Anesthesia complication Bleeding disorder Lung disease Cancer Stroke Social History Smoking and tobacco/nicotine status: former use of tobacco/nicotine Alcohol intake: never Substance/Drug Use: never Physical Exam Const: GENERAL APPEARANCE: cooperative ORIENTATION/CONSCIOUSNESS: Yes awake, Yes oriented to person, Yes oriented to place and Yes oriented to time HENMT: COMMON NORMALS: normocephalic, atraumatic and hearing grossly normal bilaterally HEAD & SCALP: normocephalic and atraumatic Resp: COMMON NORMALS: normal respiratory effort, No retractions, No use of accessory muscles and clear to auscultation bilaterally AUSCULTATION: clear to auscultation bilaterally Cardio: COMMON NORMALS: regular rate, regular rhythm and No murmurs present (Cardio) RATE: regular rate RHYTHM: regular rhythm GI: COMMON NORMALS: Soft to palpation and No hepatosplenomegaly present AUSCULTATION: Yes normoactive bowel sounds PALPATION: Yes Soft to palpation, No Tenderness to palpation present (GI), No Guarding due to palpation present (GI) and Yes No hepatosplenomegaly present Extremity: COMMON NORMALS: normal to inspection, capillary refill normal, no clubbing, cyanosis or edema, no calf tenderness and no pedal edema Neuro: SENSORIUM/ORIENTATION: Yes oriented to person, Yes oriented to place and Yes oriented to time Skin: COMMON NORMALS: no rashes or lesions noted GENERAL SKIN EXAM: no rashes or lesions noted Course Vital Signs: Vital signs: Vital Signs Temperature 98.4 F 11/02/24 12:06 Pulse Rate 89 11/02/24 14:54 Respiratory Rate 16 11/02/24 14:54 Blood Pressure 138/61 11/02/24 14:54 Pulse Oximetry 93 11/02/24 14:54 Oxygen Delivery Me thod Room Air 11/02/24 14:54 MDM - SOB/Dyspnea Medical Decision Making Early acute congestive heart failure with patient with end-stage renal disease on dialysis he is due for dialysis today is been 2 days since his last dialysis run. We have plan to admit it was late in of the day when he presented that he was not able to complete his dialysis run as an outpatient who was decompensated. We made arrangements for admission however patient refuses. He had not been using his albuterol at home we gave him a single albuterol treatment he states he feels better now if he wants to wait 2 days and do his next scheduled dialysis treatment. This would put him 4 days from his most recent. Advised him at this point I do not think that is cervantes he will likely continue to worsen while he does have some urine output is not adequate to diurese I will rely on dialysis to correct his congestive heart failure. Patient continues to decline and instead wishes to leave we did call his outpatient clinic they agreed to schedule him for dialysis tomorrow so he will not be 4 days out. 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 Medical Records I reviewed the patient's medical records. Lab Data I reviewed the patient's lab results. 11/02/24 12:11/02/24 12:29 Labs/Radiology: Laboratory Results WBC 7.59 10^3/uL (3.29-11.43) 11/02/24 12: RBC 3.38 10^6/uL (3.85-5.65) L 11/02/24 12: Hgb 11.40 g/dL (11.27-16.99) 11/02/24 12: Hct 35.2 % (37-53) L 11/02/24 12: MCV 104.1 fl (82-101) H 11/02/24 12: MCH 33.7 pg (27-33) H 11/02/24 12: MCHC 32.4 g/dL (30-55) 11/02/24 12: RDW 13.2 % (12.1-15.1) 11/02/24 12: Plt Count 131 10^3/cmm (157-399) L 11/02/24 12: MPV 10.6 fL (7.4-10.4) H 11/02/24 12: Neut % (Auto) 72.6 % 11/02/24 12: Lymph % (Auto) 13.4 % 11/02/24 12: Union % (Auto) 10.1 % 11/02/24 12: Eos % (Auto) 2.9 % 11/02/24 12: Baso % (Auto) 0.5 % 11/02/24 12: Neut # (Auto) 5.50 10^3/uL (1.8-7.7) 11/02/24 12: Lymph # (Auto) 1.0 10^3/uL (0.8-4.8) 11/02/24 12: Union # (Auto) 0.8 10^3/uL (0.2-0.9) 11/02/24 12: Eos # (Auto) 0.2 10^3/uL (0.0-0.8) 11/02/24: Baso # (Auto) 0.0 10^3/uL (0.0-0.1) 11/02/24 12: Nucleated RBC % (auto) 0 % 11/02/24: Nucleated RBCs # 0.0 /100WBC 11/02/24 12: Sodium 136 mmol/L (136-145) 11/02/24 12: Potassium 4.1 mmol/L (3.5-5.1) 11/02/24 12: Chloride 95 mmol/L (98-107) L 11/02/24 12: Carbon Dioxide 26 mmol/L (22-29) 11/02/24 12: Anion Gap 19.1 (5-19) H 11/02/24 12: BUN 56 mg/dL (8-23) H 11/02/24 12: Creatinine 5.8 mg/dL (0.7-1.2) H* 11/02/24 12: GFR Calculation 9.8 mL/min (90-130) L 11/02/24 12: Glucose 203 mg/dL (65-115) H 11/02/24 12: Calculated Osmolality 303 mOsm/kg (285-295) H 11/02/24 12: Calcium 8.7 mg/dL (8.5-10.5) 11/02/24 12: Total Bilirubin 0.5 mg/dL (0.15-1.2) 11/02/24 12: AST 26 U/L (0-40) 11/02/24 12: ALT 28 U/L (0-41) 11/02/24 12:29 Alkaline Phosphatase 87 U/L (40-130) 11/02/24 12:29 NT-Pro-B Natriuret Pep 2409 pg/mL (0-125) H 11/02/24 12:29 Total Protein 7.4 g/dL (6.6-8.7) 11/02/24 12: Albumin 4.0 g/dL (3.5-5.2) 11/02/24 12: Globulin 3.4 g/dL (1.3-4.6) 11/02/24 12: Hep Bs Antigen Non-reactive (Nonreactive) 11/02/24 12: Hep Bs Antibody 38.3 (11.5-1000) 11/02/24 12:29 Influenza A (PCR) Negative (Negative) 11/02/24 12:44 Influenza Type B (PCR) Negative (Negative) 11/02/24 12:44 RSV (PCR) Negative (Negative) 11/02/24 12:44 SARS-CoV-2 (PCR) Negative (Negative) 11/02/24 12:44 All radiology interpretation(s) finalized by discharge Discharge Plan Discharge Patient Disposition: Left Against Medical Advice Clinical Impression: ESRD (end stage renal disease), Lymphedema of lower extremity CHF exacerbation Qualifiers: Heart failure type: combined systolic and diastolic Qualified Code(s): I50.43 - 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 Qualifiers: Emphysema type: centrilobular Qualified Code(s): J43.2 - Centrilobular emphysema Condition: Stable Prescriptions: New ipratropium-albuterol 0.5 mg-3 mg(2.5 mg base)/3 mL solution for nebulization 3 ml inhalation Q4H PRN (Reason: shortness of breath or wheezing) Qty: 90 0RF Continued lidocaine 5 % adhesive patch,medicated 3 patch topical DAILY Qty: 30 2RF Rx Instructions: leave on most painful area for up to 12 hrs (DME) Dexcom G7 Line O Scribe Operator Misc See Rx Instructions .Route Rx Instructions: As directed (DME) Dexcom G7 Sensor Device See Rx Instructions .Route Rx Instructions: As directed calcium acetate 667 mg tablet 1,334 mg PO TID (DME) Diabetic shoes See Rx Instructions .ROUTE .MEDSUPPLY Qty: 1 0RF Rx Instructions: With 3 pairs of inserts (DME) blood-glucose meter Kit See Rx Instructions .Route Qty: 1 0RF Rx Instructions: As directed (DME) Blood Glucose Test Strip See Rx Instructions .Route Qty: 300 0RF Rx Instructions: As directed three times per day (DME) lancets Misc See Rx Instructions .Route Qty: 300 0RF Rx Instructions: As directed TID albuterol sulfate [Ventolin HFA] 90 mcg/actuation HFA aerosol inhaler 2 puff inhalation Q6H PRN (Reason: bronchospasm) Qty: 8.5 1RF torsemide 20 mg tablet 40 mg PO DAILY Qty: 30 5RF loratadine [Claritin] 10 mg tablet 10 mg PO DAILY Qty: 90 1RF Toujeo SoloStar U-300 Insulin 300 unit/mL (1.5 mL) insulin pen 36 unit SUBCUT DAILY Qty: 4.5 5RF insulin lispro [Humalog KwikPen Insulin] 100 unit/mL insulin pen 15 unit SUBCUT TID Qty: 45 2RF tramadol 50 mg tablet 50 mg PO Q8H PRN (Reason: pain) 30 Days Qty: 60 0RF Rx Instructions: Refill on or after 30 days intervals sevelamer carbonate 800 mg tablet 1,600 mg PO TID RenaPlex-D 800 mcg-12.5 mg -2,000 unit tablet 1 tab PO DAILY Discharge Orders: Discharge ED (Routine); Ordered 11/02/24 Ordered By: J Carlos Rascon Other Ambulatory Orders: DME: Nebulizer with Neb Kit (Order) Location: None Selected Ordered By: J Carlos Rascon Referrals: Cosmo Cazares MD [Primary Care Provider] - Discharge Diet: Usual diet Discharge Activity: Resume usual activity Activity Restrictions/Additional Instructions: Thank you for choosing [facility] for your healthcare needs today. It is very important that you follow up as instructed or that you return to the Emergency Department should you have concerns or if your condition changes or worsens in any way. You were seen in the emergency room with complaints of shortness of breath has been worsening over the last 4 days. We recommend that you had been admitted for acute exacerbation of your CHF and to receive dialysis treatment since you are not able to retrieve it in usual outpatient clinic today. You have elected to leave AGAINST MEDICAL ADVICE they will see you tomorrow at noon at [facility] to do your dialysis. It is very important that you have this done it is likely that your heart failure will worsen if it is not done tomorrow. Print Language: Macedonian Coding Level of Care Code ED Territory Sales Representative for Koby Amezcua
--- NOTE | 2024-11-02 12:32 | ECG_ITS ---
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 Measurements Intervals [place] Rate: 95 P: 81 FL: 150 QRS: -39 QRSD: 129 T: 92 QT: 389 QTc: 490 Interpretive Statements SINUS RHYTHM LEFT AXIS DEVIATION [QRS AXIS < -30] LATERAL MYOCARDIAL INFARCTION , PROBABLY RECENT [40+ ms Q WAVE AND/OR ST/T ABNORMALITY IN I/aVL/V5/V6] ACUTE MN Compared to ECG 08/15/2022 16:27:59 Myocardial infarct finding now present Left ventricular hypertrophy no longer present ST (T wave) deviation no longer present Electronically Signed On 11-03-2024 12:34:55 CDT by Kaylie Wheelre M.D. [email or web address]
[2024-11-02 12:35] LABS: Basophils % 0.5 %; Eosinophils # 0.2 10^3/uL (0.0-0.8); Eosinophils % 2.9 %; Hematocrit 35.2 % (37-53); Lymphocytes % 13.4 %; Mean Corpuscular HGB Conc 32.4 g/dL (30-55); Mean Corpuscular Hemoglobin 33.7 pg (27-33); Mean Corpuscular Volume 104.1 fl (82-101); Mean Platelet Volume 10.6 fL (7.4-10.4); Monocytes # 0.8 10^3/uL (0.2-0.9); Monocytes % 10.1 %; Neutrophils % 72.6 %; Nucleated Red Blood Cells % 0 %; Platelet Count 131 10^3/cmm (157-399); Red Blood Count 3.38 10^6/uL (3.85-5.65); Red Cell Distribution Width 13.2 % (12.1-15.1); White Blood Count 7.59 10^3/uL (3.29-11.43)
[2024-11-02 13:03] LABS: Alanine Aminotransferase 28 U/L (0-41); Alkaline Phosphatase 87 U/L (40-130); Anion Gap 19.1 (5-19); Aspartate Amino Transferase 26 U/L (0-40); Blood Urea Nitrogen 56 mg/dL (8-23); Calcium 8.7 mg/dL (8.5-10.5); Carbon Dioxide 26 mmol/L (22-29); Chloride 95 mmol/L (98-107); Creatinine Clr Calc Pharmacy 15.0657; Globulin 3.4 g/dL (1.3-4.6); Glomerular Filtration Rate 9.8 mL/min (90-130); Glucose 203 mg/dL (65-115); NT Pro B Type Natriuretic Pept 2409 pg/mL (0-125); Osmolality Calculated 303 mOsm/kg (285-295); Potassium 4.1 mmol/L (3.5-5.1); Sodium 136 mmol/L (136-145); Total Bilirubin 0.5 mg/dL (0.15-1.2); Total Protein 7.4 g/dL (6.6-8.7)
--- NOTE | 2024-11-02 13:05 | PC.NURSE ---
this nurse assumed pt care from PAULINA Bradford at 1300.
[2024-11-02 13:07] VITALS: BP 140/61; PULSE 93; RESP 16; O2SAT 96
[2024-11-02] MEDS: methylPREDNISolone sod succ 125 mg/2 mL INJ IVP (13:12)
[2024-11-02 13:16] VITALS: PULSE 63; RESP 18; O2SAT 95
[2024-11-02] MEDS: ipratropium-albuterol 3 mL Neb INHALATION (13:18)
[2024-11-02 13:26] VITALS: PULSE 85
[2024-11-02 13:30] LABS: Influenza A NEGATIVE (Negative); Influenza B NEGATIVE (Negative); Respiratory Syncytial Virus Ce NEGATIVE (Negative); SARS-CoV-2 PCR NEGATIVE (Negative)
--- NOTE | 2024-11-02 13:38 | PC.PHAR ---
Pt has several medications that are over due.
[2024-11-02 14:39] LABS: Hepatitis B Surface AB 38.3 (11.5-1000); Hepatitis B Surface Antigen Non-Reactive (Nonreactive)
[2024-11-02 14:49] VITALS: BP 138/61; PULSE 92; RESP 17; O2SAT 95
[2024-11-02 14:54] VITALS: BP 138/61; PULSE 89; RESP 16; O2SAT 93
== END 2024-11-02 15:07 | disposition left against medical advice (07) ==
LOC: ER 13:52 → ER IP 14:39
PROVIDERS: Emergency Medicine; Hospitalist; Emergency Provider Family Medicine; PCP Family Medicine
DX: E11.22 Type 2 diabetes mellitus with diabetic chronic kidney disease (principal); I13.2 Hypertensive heart and chronic kidney disease with heart failure and with stage 5 chronic kidney disease, or end stage renal disease; I50.43 Acute on chronic combined systolic (congestive) and diastolic (congestive) heart failure; N18.6 End stage renal disease; I89.0 Lymphedema, not elsewhere classified; J43.2 Centrilobular emphysema; Z11.52 Encounter for screening for COVID-19; Z79.4 Long term (current) use of insulin; Z87.891 Personal history of nicotine dependence
CPT/HCPCS: 36415; 71045; 80053; 83880; 85025; 86706; 87340; 87637; 93005; 94640; 96374; 99285; J2919; J9999

== ENCOUNTER → 2024-11-08 14:54 | Outpatient (BNVA) | payer MEDICARE, SELFPAY | PROVIDERS: PCP Family Medicine; Visit Provider Family Medicine | DX: E11.8 Type 2 diabetes mellitus with unspecified complications (principal) | CPT/HCPCS: 80048; 83036 ==

== ENCOUNTER → 2024-12-20 14:13 | Outpatient (BNVA) | payer MEDICARE, OTHER, SELFPAY | PROVIDERS: PCP Family Medicine; Visit Provider Podiatrist Foot & Ankle Surgery | DX: E11.8 Type 2 diabetes mellitus with unspecified complications (principal); L60.3 Nail dystrophy; L84 Corns and callosities; E11.21 Type 2 diabetes mellitus with diabetic nephropathy; I73.9 Peripheral vascular disease, unspecified; M21.41 Flat foot [pes planus] (acquired), right foot; M21.42 Flat foot [pes planus] (acquired), left foot; I89.0 Lymphedema, not elsewhere classified; G62.89 Other specified polyneuropathies; Z79.4 Long term (current) use of insulin | CPT/HCPCS: 11056; 11721 ==

== ENCOUNTER 2025-01-29 13:19 | Emergency (ER) | payer MEDICARE, OTHER, SELFPAY ==
[2025-01-29] VITALS (9 sets, daily range): BP systolic 136–151; BP diastolic 66–94; PULSE 86–102; RESP 16–22; TEMP 36.6; O2SAT 92–99
--- NOTE | 2025-01-29 13:30 | ECG_ITS ---
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 Measurements Intervals [place] Rate: 95 P: 61 WI: 145 QRS: -43 QRSD: 122 T: 99 QT: 385 QTc: 484 Interpretive Statements SINUS RHYTHM POSSIBLE LEFT ATRIAL ENLARGEMENT [-0.1mV P-WAVE IN V1/V2 LEFT VENTRICULAR HYPERTROPHY AND ST-T CHANGE POSSIBLE SEPTAL MYOCARDIAL INFARCTION , OF INDETERMINATE AGE [30 ms Q WAVE IN V1/V2] Compared to ECG 11/02/2024 12:32:24 Left ventricular hypertrophy now present ST (T wave) deviation now present Myocardial infarct finding still present Electronically Signed On 01-30-2025 19:24:50 CDT by Gabriela Kyle M.D. [id number]
--- NOTE | 2025-01-29 13:30 | XRR_ITS ---
PROCEDURE INFORMATION: Exam: XR Chest Exam date and time: 01/29/2025 1:32 PM Age: 64 years old Clinical indication: Shortness of breath; Additional info: Short of breath TECHNIQUE: Imaging protocol: Radiologic exam of the chest. Views: 1 view. COMPARISON: CR XR chest 1V portable [id number] 11/02/2024 12:08 PM FINDINGS: Lungs: Calcified granuloma in the right lower lobe. Pleural spaces: Unremarkable. No pleural effusion. No pneumothorax. Heart/Mediastinum: Borderline cardiomegaly. Bones/joints: Unremarkable. XR/XR chest 1V portable [id number] IMPRESSION: No acute findings.
--- NOTE | 2025-01-29 13:31 | ED_ITS ---
HPI - SOB/Dyspnea 2 General: Chief Complaint: Shortness of Breath/Dyspnea Stated Complaint: sob Time Seen by Provider: 01/29/25 13:22 History of Present Illness: HPI Narrative: Patient is a 64-year-old gentleman with history of COPD, not on oxygen, lymphedema, DM, CKD, that presents ED with shortness of breath. Patient stated this was more of an abrupt onset. He admits to wheezing. Denies cough or sputum production or sputum change. He states he has chest tightness but no pressure. Denies increase in weight. States that his legs are always swollen due to his lymphedema. No fever, chills. No sick contact. Associated symptoms: Reports chest pain (tightness only, no pain); Deny abdominal pain, fever(s), nausea, polydipsia, polyuria or vomiting Related Data Home Medications ?Medication ?Instructions ?Recorded ?Confirmed blood-glucose sensor (Dexcom G7 08/20/23 01/29/25 Sensor device) blood-glucose,recycle worker,cont 08/20/23 01/29/25 (Dexcom G7 Mixer Operator Helper Hot Metal) calcium acetate 667 mg tablet 1,334 mg PO TID 01/27/24 01/29/25 sevelamer carbonate 800 mg tablet 1,600 mg PO TID 10/1001/29/25 vit B,C-folic ac 800 mcg-zinc 12.5 1 tab PO DAILY 10/1001/29/25 mg-selen-D3 2,000 unit-vit E tablet (RenaPlex-D) Previous Rx's ?Medication ?Instructions ?Recorded blood sugar diagnostic (Blood #300 ea 05/07/23 Glucose Test strips) blood-glucose meter #1 ea 05/07/23 lancets #300 ea 05/07/23 albuterol sulfate 90 mcg/actuation 2 puff inhalation Q 6H PRN 02/26/24 aerosol inhaler (Ventolin HFA) bronchospasm #8.5 grams insulin glargine U-300 conc 300 36 unit (0.12 mL) SUBC UT DAILY 02/26/24 unit/mL (1.5 mL) subcutaneous pen #4.5 mL (Toujeo SoloStar U-300 Insulin) loratadine 10 mg tablet (Claritin) 10 mg PO DAILY #90 tabs 02/26/24 torsemide 20 mg tablet 40 mg (2 x 20 mg) PO DAILY # 30 tabs 02/26/24 insulin lispro 100 unit/mL 15 unit (0.15 mL) SUBCUT TI D #45 mL 05/06/24 subcutaneous pen (Humalog KwikPen (U-100) Insulin) Diabetic shoes #1 ea 06/21/24 tramadol 50 mg tablet 50 mg PO Q8H PRN pain 30 day s #90 11/29/24 tabs doxycycline hyclate 100 mg capsule 100 mg PO BID 10 da ys #20 caps 01/29/25 prednisone 5 mg tablets in a dose See Rx Instructions PO .COMPLEX 01/29/25 pack #21 ea Allergies Allergy/AdvReac Type Severity Reaction Status Date / Time nalbuphine (From Nubain) Allergy ALGY-Rash Verified 12/20/24 14:15 prochlorperazine (From Allergy EPS Verified 12/20/24 14:15 Compazine) Review of Systems 2 Const: Denies: fever(s) or chills Eyes: Denies: change in vision or blurry vision ENMT: Denies: throat pain, nasal discharge or nasal congestion Card: Reports: chest pain (tightness only, no pain) Resp: Reports: dyspnea and wheezing; Denies: non-productive cough (no coughing) GI: Denies: abdominal pain, nausea or vomiting : Denies: flank pain or difficulty urinating Musc: Reports: joint swelling (chronic); Denies: neck pain or back pain Skin/Breast: Reports: sores (chronic LE with chronic lymphedema); Denies: rash or pruritus Neuro: Denies: headache(s) or numbness in extremities Psych: Denies: anxiety or depression Endo: Denies: polyuria or polydipsia PFSH ED 2 PFSH: Medical History Tobacco use disorder, moderate, dependence Diabetic retinopathy Chronic pain (HFpEF) heart failure with preserved eje ction fraction IDDM (insulin dependent diabetes mellitus) ESRD (end stage renal disease) Central line January 2024 with dialysis x3 week Diabetes mellitus type 2 with complications Diabetic neuropathy associated with diabetes mellitus due to underlying condition Opioid dependence Followed by [facility] in [place] Tobacco abuse COPD (chronic obstructive pulmonary disease) Noncompliance with CPAP treatment Obstructive sleep apnea Hypertension Anxiety and depression Lymphadenopathy Surgical History Hx of vasectomy Hx of cholecystectomy No pertinent past surgical history Family History Mother CAD (coronary artery disease) Father Diabetes Other Hypertension Denies family history of Clotting disorder Dementia Chronic kidney disease (CKD) Suicide Anesthesia complication Bleeding disorder Lung disease Cancer Stroke Social History Smoking and tobacco/nicotine status: unknown if used tobacco/nicotine Alcohol intake: never Substance/Drug Use: never Physical Exam 2 Const: COMMON NORMALS: no acute distress, patient oriented x3, alert and well nourished GENERAL APPEARANCE: cooperative; not in distress HENMT: COMMON NORMALS: normocephalic and atraumatic HEAD & SCALP: n ormocephalic and atraumatic Lymph: LYMPHATIC: no lymphadenopathy noted Resp: EFFORT & INSPECTION: Yes able to speak in complete sentences A USCULTATION: wheezes (t/o) expiratory wheezes, inspiratory wheezes and scattered wheezes Cardio: COMMON NORMALS: regular rate and regular rhythm RATE: regular rate RHYTHM: regular rhythm : COMMON NORMALS: Yes no CVA tenderness BLADDER/KIDNEY EXAM: Yes no CVA tenderness Back/Pelvis: COMMON NORMALS: no CVA tenderness Extremity: GENERAL: Yes edema (bilat +3, with chronic bronzing) Neuro: COMMON NORMALS: patient oriented x3 SENSORIUM/ORIENTATION: Yes alert Psych: COMMON NORMALS: mental status grossly normal, Normal thought process present and cooperative THOUGHT PROCESS: Normal thought process present Skin: COMMON NORMALS: no rashes or lesions noted and no wounds (no acute wounds, chronic LE) GENERAL SKIN EXAM: no rashes or lesions noted Course 2 Vital Signs: Vital signs: Vital Signs Temperature 97.8 F 01/29/25 13:21 Pulse Rate 102 H 01/29/25 15:34 Respiratory Rate 16 01/29/25 15:34 Blood Pressure 151/77 01/29/25 15:34 Pulse Oximetry 96 01/29/25 15:34 Oxygen Delivery Me thod Room Air 01/29/25 15:06 MDM - SOB/Dyspnea Medical Decision Making Patient is a 64-year-old male with COPD, ESRD on HD TTS makes urine, presents with increasing shortness of breath. COVID/flu were negative. His lower extremity edema is chronic. He has improved after Solu-Medrol x 1 and aerosol therapy. Plan is to discharge on Solu-Medrol, and doxycycline after second troponin is flat. Patient does run previous troponins in the 170s. His chest discomfort was a tightness per patient. I do suspect this is chronic due to mismatch Lab Data 01/29/25 13:14 01/29/25 13:14 Labs/Radiology: Radiology Impressions Chest X-Ray 01/29/25 13:30 IMPRESSION: No acute findings. Laboratory Results WBC 12.19 10^3/uL (3.29-11.43) H 01/29/25 13:14 RBC 3.09 10^6/uL (3.85-5.65) L 01/29/25 13:14 Hgb 10.60 g/dL (11.27-16.99) L 01/29/25 13:14 Hct 32.6 % (37-53) L 01/29/25 13:14 MCV 105.5 fl (82-101) H 01/29/25 13:14 MCH 34.3 pg (27-33) H 01/29/25 13:14 MCHC 32.5 g/dL (30-55) 01/29/25 13:14 RDW 12.9 % (12.1-15.1) 01/29/25 13:14 Plt Count 127 10^3/cmm (157-399) L 01/29/25 13:14 MPV 11.8 fL (7.4-10.4) H 01/29/25 13:14 Neut % (Auto) 76.5 % 01/29/25 13:14 Lymph % (Auto) 13.9 % 01/29/25 13:14 [place] % (Auto) 5.2 % 01/29/25 13:14 Eos % (Auto) 3.3 % 01/29/25 13:14 Baso % (Auto) 0.5 % 01/29/25 13:14 Neut # (Auto) 9.33 10^3/uL (1.8-7.7) H 01/29/25 13:14 Lymph # (Auto) 1.7 10^3/uL (0.8-4.8) 01/29/25 13:14 [place] # (Auto) 0.6 10^3/uL (0.2-0.9) 01/29/25 13:14 Eos # (Auto) 0.4 10^3/uL (0.0-0.8) 01/29/25 13:14 Baso # (Auto) 0.1 10^3/uL (0.0-0.1) 01/29/25 13:14 Nucleated RBC % (auto) 0 % 01/29/25 13:14 Nucleated RBCs # 0.0 /100WBC 01/29/25 13:14 Sodium 138 mmol/L (136-145) 01/29/25 13:14 Potassium 4.9 mmol/L (3.5-5.1) 01/29/25 13:14 Chloride 103 mmol/L (98-107) 01/29/25 13:14 Carbon Dioxide 21 mmol/L (22-29) L 01/29/25 13:14 Anion Gap 18.9 (5-19) 01/29/25 13:14 BUN 42 mg/dL (8-23) H 01/29/25 13:14 Creatinine 5.4 mg/dL (0.7-1.2) H 01/29/25 13:14 GFR Calculation 10.7 mL/min (90-130) L 01/29/25 13:14 Glucose 176 mg/dL (65-115) H 01/29/25 13:14 Calculated Osmolality 301 mOsm/kg (285-295) H 01/29/25 13:14 Lactic Acid 1.6 mmol/L (0.5-2.2) 01/29/25 13:14 Calcium 8.5 mg/dL (8.5-10.5) 01/29/25 13:14 Magnesium 2.1 mg/dL (1.7-2.3) 01/29/25 13:14 Total Bilirubin 0.4 mg/dL (0.15-1.2) 01/29/25 13:14 AST 24 U/L (0-40) 01/29/25 13:14 ALT 36 U/L (0-41) 01/29/25 13:14 Alkaline Phosphatase 96 U/L (40-130) 01/29/25 13:14 Troponin T Baseline 178 ng/L (0-15) H* 01/29/25 13:14 Troponin T 120 Minute 172.0 ng/L (0-15) H 01/29/25 15:15 Delta Troponin T -6.0 ABS# (0-10) L 01/29/25 15:15 NT-Pro-B Natriuret Pep 3171 pg/mL (0-125) H 01/29/25 13:14 Total Protein 7.2 g/dL (6.6-8.7) 01/29/25 13:14 Albumin 4.0 g/dL (3.5-5.2) 01/29/25 13:14 Globulin 3.2 g/dL (1.3-4.6) 01/29/25 13:14 Influenza A (PCR) Negative (Negative) 01/29/25 13:48 Influenza Type B (PCR) Negative (Negative) 01/29/25 13:48 RSV (PCR) Negative (Negative) 01/29/25 13:48 SARS-CoV-2 (PCR) Negative (Negative) 01/29/25 13:48 All radiology interpretation(s) finalized by discharge ED provider radiology interpretation(s): LLL infiltrate EKG Data EKG 1: Interpretation: Sinus rhythm, left axis, left atrial enlargement LVH, QTc 437 Discharge Plan Discharge Patient Disposition: Home Clinical Impression: Acute exacerbation of chronic obstructive pulmonary disease Pneumonia, unspecified organism Qualifiers: Laterality: left Lung location: lower lobe of lung Qualified Code(s): J18.9 - Pneumonia, unspecified organism Condition: Stable Prescriptions: New prednisone 5 mg tablets,dose pack See Rx Instructions .ROUTE .COMPLEX Qty: 21 0RF Rx Instructions: prednisone 5 mg: take 8 tablets (40 mg) on Day 1; 7 tablets (35 mg) on Day 2; then decrease by 1 tablet every day until finished doxycycline hyclate 100 mg capsule 100 mg PO BID 10 Days Qty: 20 0RF No Action (DME) Dexcom G7 Mixer Operator Helper Hot Metal Misc See Rx Instructions .Route Rx Instructions: As directed (DME) Dexcom G7 Sensor Device See Rx Instructions .Route Rx Instructions: As directed calcium acetate 667 mg tablet 1,334 mg PO TID (DME) Diabetic shoes See Rx Instructions .ROUTE .MEDSUPPLY Qty: 1 0RF Rx Instructions: With 3 pairs of inserts (DME) blood-glucose meter Kit See Rx Instructions .Route Qty: 1 0RF Rx Instructions: As directed (DME) Blood Glucose Test Strip See Rx Instructions .Route Qty: 300 0RF Rx Instructions: As directed three times per day (DME) lancets Misc See Rx Instructions .Route Qty: 300 0RF Rx Instructions: As directed TID albuterol sulfate [Ventolin HFA] 90 mcg/actuation HFA aerosol inhaler 2 puff inhalation Q6H PRN (Reason: bronchospasm) Qty: 8.5 1RF torsemide 20 mg tablet 40 mg PO DAILY Qty: 30 5RF loratadine [Claritin] 10 mg tablet 10 mg PO DAILY Qty: 90 1RF Toujeo SoloStar U-300 Insulin 300 unit/mL (1.5 mL) insulin pen 36 unit SUBCUT DAILY Qty: 4.5 5RF insulin lispro [Humalog KwikPen Insulin] 100 unit/mL insulin pen 15 unit SUBCUT TID Qty: 45 2RF tramadol 50 mg tablet 50 mg PO Q8H PRN (Reason: pain) 30 Days Qty: 90 0RF sevelamer carbonate 800 mg tablet 1,600 mg PO TID RenaPlex-D 800 mcg-12.5 mg -2,000 unit tablet 1 tab PO DAILY Discharge Orders: Discharge ED (Routine); Ordered 01/29/25 Ordered By: Euefmia Mcadams Referrals: Cosmo Cazares MD [Primary Care Provider, Family Practice] Patient Instructions: Chronic Lung Disease and Infection Prevention (ED) Activity Restrictions/Additional Instructions: Medication has been sent to your pharmacy?[facility] [address] Take as directed. Return to dialysis on Friday as planned Feel free to return to ED for worsening shortness of breath. You will need to follow-up with your primary care physician regarding this exacerbation of your COPD and possibly pneumonia. Your primary care may even discuss extending your steroid therapy. Please call on Friday for an appointment. Print Language: Icelandic Coding Level of Care Code ED Welfare Officer for Koby Amezcua
[2025-01-29 13:42] LABS: Basophils # 0.1 10^3/uL (0.0-0.1); Basophils % 0.5 %; Eosinophils # 0.4 10^3/uL (0.0-0.8); Eosinophils % 3.3 %; Hematocrit 32.6 % (37-53); Lymphocytes # 1.7 10^3/uL (0.8-4.8); Lymphocytes % 13.9 %; Mean Corpuscular HGB Conc 32.5 g/dL (30-55); Mean Corpuscular Hemoglobin 34.3 pg (27-33); Mean Corpuscular Volume 105.5 fl (82-101); Mean Platelet Volume 11.8 fL (7.4-10.4); Monocytes # 0.6 10^3/uL (0.2-0.9); Monocytes % 5.2 %; Neutrophils # 9.33 10^3/uL (1.8-7.7); Neutrophils % 76.5 %; Nucleated Red Blood Cells % 0 %; Platelet Count 127 10^3/cmm (157-399); Red Blood Count 3.09 10^6/uL (3.85-5.65); Red Cell Distribution Width 12.9 % (12.1-15.1); White Blood Count 12.19 10^3/uL (3.29-11.43)
[2025-01-29] MEDS: methylPREDNISolone sod succ 125 mg/2 mL INJ 80 MG IV (13:44)
[2025-01-29 14:00] LABS: Troponin(5th) Baseline 178 ng/L (0-15)
[2025-01-29 14:02] LABS: Lactic Sepsis W/Reflex 1.6 mmol/L (0.5-2.2)
[2025-01-29 14:30] LABS: Influenza A NEGATIVE (Negative); Influenza B NEGATIVE (Negative); Respiratory Syncytial Virus Ce NEGATIVE (Negative); SARS-CoV-2 PCR NEGATIVE (Negative)
[2025-01-29 14:31] LABS: Alanine Aminotransferase 36 U/L (0-41); Alkaline Phosphatase 96 U/L (40-130); Anion Gap 18.9 (5-19); Aspartate Amino Transferase 24 U/L (0-40); Blood Urea Nitrogen 42 mg/dL (8-23); Calcium 8.5 mg/dL (8.5-10.5); Carbon Dioxide 21 mmol/L (22-29); Chloride 103 mmol/L (98-107); Globulin 3.2 g/dL (1.3-4.6); Glomerular Filtration Rate 10.7 mL/min (90-130); Glucose 176 mg/dL (65-115); Magnesium 2.1 mg/dL (1.7-2.3); NT Pro B Type Natriuretic Pept 3171 pg/mL (0-125); Osmolality Calculated 301 mOsm/kg (285-295); Potassium 4.9 mmol/L (3.5-5.1); Sodium 138 mmol/L (136-145); Total Bilirubin 0.4 mg/dL (0.15-1.2); Total Protein 7.2 g/dL (6.6-8.7)
[2025-01-29] MEDS: budesonide 0.5 mg/2 mL Neb INHALATION (14:35)
[2025-01-29] MEDS: ipratropium-albuterol 3 mL Neb INHALATION (14:35)
--- NOTE | 2025-01-29 15:13 | ECG_ITS ---
[facility] Date: 2025-01-29 Pat Name: Mark Katz Department: Room: Gender: Male [employer] Developer: : 1960 Requested By: Eufemia Mcadams Order Number: [id number] Pelon MD: Gabriela Kyle M.D. Measurements Intervals Pool Rate: 100 P: 60 WA: 152 QRS: -38 QRSD: 126 T: 96 QT: 372 QTc: 482 Interpretive Statements SINUS TACHYCARDIA POSSIBLE LEFT ATRIAL ENLARGEMENT [-0.1mV P-WAVE IN V1/V2] LEFT VENTRICULAR HYPERTROPHY AND ST-T CHANGE [VOLTAGE CRITERIA PLUS ST/T ABNORMALITY] POSSIBLE SEPTAL MYOCARDIAL INFARCTION , OF INDETERMINATE AGE [30 ms Q WAVE IN V1/V2] Compared to ECG 01/29/2025 13:44:23 Sinus rhythm no longer present ST (T wave) deviation still present Myocardial infarct finding still present Electronically Signed On 01-30-2025 19:34:45 CDT by Gabriela Kyle M.D. [email or web address]
[2025-01-29] MEDS: sodium polystyrene sulfonate 15 gm/60 mL Btl PO (15:32)
== END 2025-01-29 16:23 | disposition home or self-care (01) ==
PROVIDERS: Emergency Provider Physician Assistant; PCP Family Medicine
DX: J44.1 Chronic obstructive pulmonary disease with (acute) exacerbation (principal); J18.9 Pneumonia, unspecified organism; Z79.4 Long term (current) use of insulin; Z11.52 Encounter for screening for COVID-19; E11.22 Type 2 diabetes mellitus with diabetic chronic kidney disease; I13.2 Hypertensive heart and chronic kidney disease with heart failure and with stage 5 chronic kidney disease, or end stage renal disease; I50.30 Unspecified diastolic (congestive) heart failure; N18.6 End stage renal disease
CPT/HCPCS: 36415; 71045; 80053; 83605; 83735; 83880; 84484; 85025; 87637; 93005; 94640; 96374; 99285; J2919; J7626; J9999

== ENCOUNTER 2025-01-31 15:34 | Inpatient (IN) | payer MEDICARE, OTHER, SELFPAY ==
[2025-01-31] VITALS (23 sets, daily range): BP systolic 112–170; BP diastolic 66–98; PULSE 94–131; RESP 18–37; TEMP 36.4–37.2; O2SAT 90–100; BMI 37.3; BMI 38.9
--- NOTE | 2025-01-31 15:36 | XR_ITS ---
WS: [id number] Exam: XR chest 1V portable [id number] Date/Time of Exam: 01/31/2025 3:38 PM Reason For Exam: sob There are widespread airspace and interstitial infiltrates throughout both lungs. This is most prevalent in the bilateral upper lobes. No pneumothorax or pleural effusion. Heart size within normal limits. The mediastinum is normal in contour. Bony structures are intact. XR/XR chest 1V portable [id number] IMPRESSION: 1. Widespread interstitial and airspace infiltrates throughout both lungs most prevalent in the bilateral upper lobes. This most likely represents pneumonia h owever acute pulmonary edema might also be a consideration.
--- NOTE | 2025-01-31 15:42 | ECG_ITS ---
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 Measurements Intervals [place] Rate: 131 P: 70 NE: 133 QRS: -60 QRSD: 127 T: 103 QT: 312 QTc: 462 Interpretive Statements SINUS TACHYCARDIA WITH OCCASIONAL VENTRICULAR PREMATURE COMPLEXES RIGHT BUNDLE BRANCH BLOCK [120+ ms QRS DURATION, UPRIGHT V1, 40+ ms S IN I/aVL/V4/V5/V6] LEFT ANTERIOR FASCICULAR BLOCK [QRS AXIS <= -45, QR IN I, RS IN II] LEFT VENTRICULAR HYPERTROPHY AND ST-T CHANGE [VOLTAGE CRITERIA PLUS ST/T ABNORMALITY] POSSIBLE SEPTAL MYOCARDIAL INFARCTION , OF INDETERMINATE AGE [30 ms Q WAVE IN V1/V2] Compared to ECG 01/29/2025 15:13:43 Ventricular premature complex(es) now present Right bundle-branch block now present Myocardial infarct finding still present Electronically Signed On 02-01-2025 17:21:26 CDT by Deion Chin M.D. [email or web address]
[2025-01-31 15:45] LABS: ABG PCO2 54.6 mmHg (35-45); Arterial Blood Gas Hematocrit 36.1 % (42-52); Base Excess ABG -7.3 mmol/L (-2.0-2.0); Blood Gas Allen Test Pos; Blood Gas Operator Identificat WALCI; Blood Gas Sample Site Radial, right; Blood Gas Sample Type Arterial; Carboxyhemoglobin 1.4 %THgb (0.4-20.1); HCO3 ABG 21.1 mmol/L (22-26); HGB O2 Sat 77.9 % (95-100); Methemoglobin 0.7 % (0.4-1.5); Oxygen Device NC; PO2 ABG 52.2 mmHg (80.0-100.0); Total Hemoglobin 11.8 g/dL (14-18)
[2025-01-31] MEDS: methylPREDNISolone sod succ 125 mg/2 mL INJ IVP (15:51)
--- NOTE | 2025-01-31 15:54 | ED_ITS ---
HPI - SOB/Dyspnea 2 General: Chief Complaint: Shortness of Breath/Dyspnea Stated Complaint: SOB Time Seen by Provider: 01/31/25 15:35 Source: patient and EMS Mode of arrival: EMS Limitations: no limitations History of Present Illness: HPI Narrative: 64-year-old male history of congestive h eart failure along with end-stage renal disease is on dialysis he had went to dialysis today he had had 1 L removed did not have his full dialysis treatment was getting severely short of breath typically does not wear oxygen was on CPAP and route did place him on oxygen here originally but did put him back on BiPAP as he was requiring 5 L he is in respiratory distress he denies any fever or pain. Associated symptoms: Deny abdominal pain, chest pain, fever(s), nausea or vomiting Related Data Home Medications ?Medication ?Instructions ?Recorded ?Confirmed blood-glucose sensor (Dexcom G7 08/20/23 01/29/25 Sensor device) blood-glucose,escapement maker,cont 08/20/23 01/29/25 (Dexcom G7 Quality Assurance Coordinator) calcium acetate 667 mg tablet 1,334 mg PO TID 01/27/24 01/29/25 sevelamer carbonate 800 mg tablet 1,600 mg PO TID 10/1001/29/25 vit B,C-folic ac 800 mcg-zinc 12.5 1 tab PO DAILY 10/1001/29/25 mg-selen-D3 2,000 unit-vit E tablet (RenaPlex-D) Previous Rx's ?Medication ?Instructions ?Recorded blood sugar diagnostic (Blood #300 ea 05/07/23 Glucose Test strips) blood-glucose meter #1 ea 05/07/23 lancets #300 ea 05/07/23 albuterol sulfate 90 mcg/actuation 2 puff inhalation Q 6H PRN 02/26/24 aerosol inhaler (Ventolin HFA) bronchospasm #8.5 grams insulin glargine U-300 conc 300 36 unit (0.12 mL) SUBC UT DAILY 02/26/24 unit/mL (1.5 mL) subcutaneous pen #4.5 mL (Toujeo SoloStar U-300 Insulin) loratadine 10 mg tablet (Claritin) 10 mg PO DAILY #90 tabs 02/26/24 torsemide 20 mg tablet 40 mg (2 x 20 mg) PO DAILY # 30 tabs 02/26/24 insulin lispro 100 unit/mL 15 unit (0.15 mL) SUBCUT TI D #45 mL 05/06/24 subcutaneous pen (Humalog KwikPen (U-100) Insulin) Diabetic shoes #1 ea 06/21/24 tramadol 50 mg tablet 50 mg PO Q8H PRN pain 30 day s #90 11/29/24 tabs doxycycline hyclate 100 mg capsule 100 mg PO BID 10 da ys #20 caps 01/29/25 prednisone 5 mg tablets in a dose See Rx Instructions PO .COMPLEX 01/29/25 pack #21 ea Allergies Allergy/AdvReac Type Severity Reaction Status Date / Time nalbuphine (From Nubain) Allergy ALGY-Rash Verified 12/20/24 14:15 prochlorperazine (From Allergy EPS Verified 12/20/24 14:15 Compazine) Review of Systems 2 Const: Denies: fever(s), chills, body aches or change in appetite ENMT: Denies: throat pain or dental pain Card: Denies: chest pain Resp: Reports: dyspnea GI: Denies: abdominal pain, nausea, vomiting or diarrhea Musc: Denies: neck pain or back pain Skin/Breast: Denies: rash Neuro: Denies: headache(s) PFSH ED 2 PFSH: Medical History Tobacco use disorder, moderate, dependence Diabetic retinopathy Chronic pain (HFpEF) heart failure with preserved eje ction fraction IDDM (insulin dependent diabetes mellitus) ESRD (end stage renal disease) Central line January 2024 with dialysis x3 week Diabetes mellitus type 2 with complications Diabetic neuropathy associated with diabetes mellitus due to underlying condition Opioid dependence Followed by [facility] pain management in [place] Tobacco abuse COPD (chronic obstructive pulmonary disease) Noncompliance with CPAP treatment Obstructive sleep apnea Hypertension Anxiety and depression Lymphadenopathy Surgical History Hx of vasectomy Hx of cholecystectomy No pertinent past surgical history Family History Mother CAD (coronary artery disease) Father Diabetes Other Hypertension Denies family history of Clotting disorder Dementia Chronic kidney disease (CKD) Suicide Anesthesia complication Bleeding disorder Lung disease Cancer Stroke Social History Smoking and tobacco/nicotine status: unknown if used tobacco/nicotine Alcohol intake: never Substance/Drug Use: never Physical Exam 2 Const: COMMON NORMALS: patient oriented x3 GENERAL APPEARANCE: in distress and ill appearing HENMT: COMMON NORMALS: normocephalic and atraumatic HEAD & SCALP: n ormocephalic and atraumatic Eye: COMMON NORMALS: conjunctivae normal CONJUNCTIVA: Yes conjunctivae normal Neck/C-Spine: COMMON NORMALS: full ROM and supple Chest: COMMONS NORMALS: normal inspection of the chest Resp: COMMON NORMALS: No retractions EFFORT & INSPECTION: Yes tachypneic and Yes respiratory distress AUSCULTATION: rales Cardio: COMMON NORMALS: regular rhythm and No murmurs present (Cardio) R ATE: tachycardic RHYTHM: regular rhythm GI: COMMON NORMALS: Normal to inspection, nondistended, normoactive bowel sounds present, Soft to palpation, non-tender and no masses PALPATION: Yes Soft to palpation Extremity: COMMON NORMALS: normal to inspection and full ROM NARRATIVE EXTREMITY EXAM: 2+ le edema Neuro: COMMON NORMALS: patient oriented x3, moves all extremities and no focal motor deficits Psych: COMMON NORMALS: mental status grossly normal, Normal thought process present and cooperative THOUGHT PROCESS: Normal thought process present Skin: COMMON NORMALS: no rashes or lesions noted and no wounds GENERAL SKIN EXAM: no rashes or lesions noted Course 2 Vital Signs: Vital signs: Vital Signs Temperature 98.8 F 01/31/25 15:45 Pulse Rate 95 01/31/25 17:40 Respiratory Rate 37 H 01/31/25 15:53 Blood Pressure 149/98 01/31/25 16:00 Pulse Oximetry 100 01/31/25 17:40 Oxygen Delivery Me thod BiPAP 01/31/25 15:53 Oxygen Flow Rate 5 01/31/25 15:38 Fraction of Inspir ed Oxygen 35 01/31/25 17:40 MDM - SOB/Dyspnea Medical Decision Making Patient presents here severe respiratory distress was not able to get his full dialysis x-ray shows pulmonary edema versus pneumonia did start IV antibiotics spoke to the hospitalist will admit to the ICU at this time. Medical Records I reviewed the patient's medical records. Lab Data I reviewed the patient's lab results. 01/31/25 16:30 01/31/25 16:30 Labs/Radiology: Radiology Impressions Chest X-Ray 01/31/25 15:36 IMPRESSION: 1. Widespread interstitial and airspace infiltrates throughout both lungs most prevalent in the bilateral upper lobes. This most likely represents pneumonia however acute pulmonary edema might also be a consideration. Laboratory Results WBC 23.02 10^3/uL (3.29-11.43) H 01/31/25 16:30 RBC 3.13 10^6/uL (3.85-5.65) L 01/31/25 16:30 Hgb 10.80 g/dL (11.27-16.99) L 01/31/25 16:30 Hct 34.6 % (37-53) L 01/31/25 16:30 MCV 110.5 fl (82-101) H 01/31/25 16:30 MCH 34.5 pg (27-33) H 01/31/25 16:30 MCHC 31.2 g/dL (30-55) 01/31/25 16:30 RDW 13.1 % (12.1-15.1) 01/31/25 16:30 Plt Count 129 10^3/cmm (157-399) L 01/31/25 16:30 MPV 11.7 fL (7.4-10.4) H 01/31/25 16:30 Neut % (Auto) 86.5 % 01/31/25 16:30 Lymph % (Auto) 3.6 % 01/31/25 16:30 [place] % (Auto) 6.8 % 01/31/25 16:30 Eos % (Auto) 0.3 % 01/31/25 16:30 Baso % (Auto) 0.2 % 01/31/25 16:30 Neut # (Auto) 19.90 10^3/uL (1.8-7.7) H 01/31/25 16:30 Lymph # (Auto) 0.8 10^3/uL (0.8-4.8) 01/31/25 16:30 [place] # (Auto) 1.6 10^3/uL (0.2-0.9) H 01/31/25 16:30 Eos # (Auto) 0.1 10^3/uL (0.0-0.8) 01/31/25 16:30 Baso # (Auto) 0.0 10^3/uL (0.0-0.1) 01/31/25 16:30 Nucleated RBC % (auto) 0 % 01/31/25 16:30 Nucleated RBCs # 0.0 /100WBC 01/31/25 16:30 PT 14.00 SECONDS (12.1-14.9) 01/31/25 16:30 INR 1.01 (0.8-1.2) 01/31/25 16:30 Specimen Type Arterial 01/31/25 17:20 Sample Site Radial, left 01/31/25 17:20 ABG pH 7.33 (7.35-7.45) L 01/31/25 17:20 ABG pCO2 37.4 mmHg (35-45) 01/31/25 17:20 ABG pO2 95.2 mmHg (80.0-100.0) 01/31/25 17:20 ABG PO2/FiO2 Ratio 272 01/31/25 17:20 ABG HCO3 19.7 mmol/L (22-26) L 01/31/25 17:20 ABG O2 Saturation 98.1 01/31/25 17:20 ABG Base Excess -5.7 mmol/L (-2.0-2.0) L 01/31/25 17:20 Sp Test Pos 01/31/25 17:20 A-a O2 Gradient 14.0 mmHg (5-10) H 01/31/25 17:20 Hematocrit 33.5 % (42-52) L 01/31/25 17:20 Hgb O2 Saturation 97.4 % (95-100) 01/31/25 17:20 Carboxyhemoglobin 1.2 %THgb (0.4-20.1) 01/31/25 17:20 Methemoglobin < 0.0 % (0.4-1.5) L 01/31/25 17:20 Total Hemoglobin 10.9 g/dL (14-18) L 01/31/25 17:20 Sodium 138.0 mmol/L (131-143) 01/31/25 17:20 Potassium 6.0 mmol/L (3.5-5.0) H 01/31/25 17:20 Glucose 271.0 mg/dL (70-115) H 01/31/25 17:20 Ionized Calcium 1.1 mmol/L (1.1-1.4) 01/31/25 17:20 O2 Delivery Device Bipap 01/31/25 17:20 O2 Liters/Min 5.0 % 01/31/25 15:34 FiO2 35.0 % 01/31/25 17:20 Application Integration Engineer ID [place] 01/31/25 17:20 Sodium 139 mmol/L (136-145) 01/31/25 16:30 Potassium 5.7 mmol/L (3.5-5.1) H 01/31/25 16:30 Chloride 102 mmol/L (98-107) 01/31/25 16:30 Carbon Dioxide 18 mmol/L (22-29) L 01/31/25 16:30 Anion Gap 24.7 (5-19) H 01/31/25 16:30 BUN 67 mg/dL (8-23) H 01/31/25 16:30 Creatinine 6.1 mg/dL (0.7-1.2) H* 01/31/25 16:30 GFR Calculation 9.3 mL/min (90-130) L 01/31/25 16:30 Glucose 235 mg/dL (65-115) H 01/31/25 16:30 Calculated Osmolality 315 mOsm/kg (285-295) H 01/31/25 16:30 Lactic Acid 2.2 mmol/L (0.5-2.2) 01/31/25 16:30 Calcium 8.4 mg/dL (8.5-10.5) L 01/31/25 16:30 Total Bilirubin 0.6 mg/dL (0.15-1.2) 01/31/25 16:30 AST 27 U/L (0-40) 01/31/25 16:30 ALT 39 U/L (0-41) 01/31/25 16:30 Alkaline Phosphatase 77 U/L (40-130) 01/31/25 16:30 NT-Pro-B Natriuret Pep 7054 pg/mL (0-125) H 01/31/25 16:30 Total Protein 7.5 g/dL (6.6-8.7) 01/31/25 16:30 Albumin 4.0 g/dL (3.5-5.2) 01/31/25 16:30 Globulin 3.5 g/dL (1.3-4.6) 01/31/25 16:30 Influenza A (PCR) Negative (Negative) 01/31/25 15:55 Influenza Type B (PCR) Negative (Negative) 01/31/25 15:55 RSV (PCR) Negative (Negative) 01/31/25 15:55 SARS-CoV-2 (PCR) Negative (Negative) 01/31/25 15:55 All radiology interpretation(s) finalized by discharge Critical Care Time 2 Critical Care Time: Critical Care Time: Yes Total Critical Care Time: 50 Attestation: The high probability of a clinically significant, sudden or life threatening deterioration of the patient's resp system(s) required my full and direct attention, intervention and personal management. The critical care time is as shown. This time is in addition to time spent performing any reported procedures but includes the following: [x] Data and vital sign review and interpretation [x] Patient assessment, examination and intervention [x] Documentation [x] Medication orders and management Discharge Plan Discharge Patient Disposition: Admitted As Inpatient Clinical Impression: ESRD (end stage renal disease), Acute hypoxemic respiratory failure Pneumonia, unspecified organism Qualifiers: Laterality: left Lung location: lower lobe of lung Qualified Code(s): J18.9 - Pneumonia, unspecified organism Condition: Stable Coding Level of Care Code ED Sterile Supply Technician for Koby Amezcua
[2025-01-31] MEDS: ipratropium-albuterol 3 mL Neb INHALATION (15:56)
[2025-01-31] MEDS: labetalol 5 mg/mL SDV 20mL 10 MG IVP (16:08)
[2025-01-31 16:39] LABS: Influenza A NEGATIVE (Negative); Influenza B NEGATIVE (Negative); Respiratory Syncytial Virus Ce NEGATIVE (Negative); SARS-CoV-2 PCR NEGATIVE (Negative)
[2025-01-31 16:41] LABS: Basophils % 0.2 %; Eosinophils # 0.1 10^3/uL (0.0-0.8); Eosinophils % 0.3 %; Hematocrit 34.6 % (37-53); Lymphocytes # 0.8 10^3/uL (0.8-4.8); Lymphocytes % 3.6 %; Mean Corpuscular HGB Conc 31.2 g/dL (30-55); Mean Corpuscular Hemoglobin 34.5 pg (27-33); Mean Corpuscular Volume 110.5 fl (82-101); Mean Platelet Volume 11.7 fL (7.4-10.4); Monocytes # 1.6 10^3/uL (0.2-0.9); Monocytes % 6.8 %; Neutrophils % 86.5 %; Nucleated Red Blood Cells % 0 %; Platelet Count 129 10^3/cmm (157-399); Red Blood Count 3.13 10^6/uL (3.85-5.65); Red Cell Distribution Width 13.1 % (12.1-15.1); White Blood Count 23.02 10^3/uL (3.29-11.43)
--- NOTE | 2025-01-31 16:41 | PC.NURSE ---
DELAY IN ANTIBIOTIC ADMINISTRATION DUE TO BLOOD CULTURES NOT DRAWN.
[2025-01-31 16:52] LABS: INR 1.01 (0.8-1.2)
[2025-01-31 17:06] LABS: Lactic Sepsis W/Reflex 2.2 mmol/L (0.5-2.2)
[2025-01-31 17:14] LABS: Alanine Aminotransferase 39 U/L (0-41); Alkaline Phosphatase 77 U/L (40-130); Anion Gap 24.7 (5-19); Aspartate Amino Transferase 27 U/L (0-40); Blood Urea Nitrogen 67 mg/dL (8-23); Calcium 8.4 mg/dL (8.5-10.5); Carbon Dioxide 18 mmol/L (22-29); Chloride 102 mmol/L (98-107); Creatinine Clr Calc Pharmacy 13.9609; Globulin 3.5 g/dL (1.3-4.6); Glomerular Filtration Rate 9.3 mL/min (90-130); Glucose 235 mg/dL (65-115); NT Pro B Type Natriuretic Pept 7054 pg/mL (0-125); Osmolality Calculated 315 mOsm/kg (285-295); Potassium 5.7 mmol/L (3.5-5.1); Sodium 139 mmol/L (136-145); Total Bilirubin 0.6 mg/dL (0.15-1.2); Total Protein 7.5 g/dL (6.6-8.7)
[2025-01-31 17:31] LABS: ABG PCO2 37.4 mmHg (35-45); ABG PH Result 7.33 (7.35-7.45); Arterial Blood Gas Hematocrit 33.5 % (42-52); Base Excess ABG -5.7 mmol/L (-2.0-2.0); Blood Gas Allen Test Pos; Blood Gas Operator Identificat WALCI; Blood Gas Sample Site Radial, left; Blood Gas Sample Type Arterial; Carboxyhemoglobin 1.2 %THgb (0.4-20.1); HCO3 ABG 19.7 mmol/L (22-26); HGB O2 Sat 97.4 % (95-100); Ionized Calcium Level - ABG 1.1 mmol/L (1.1-1.4); Methemoglobin < 0.0 % (0.4-1.5); Oxygen Device BIPAP; Oxygen Saturation ABG 98.1; PO2 ABG 95.2 mmHg (80.0-100.0); PO2 FiO2 Ratio Arterial Blood 272; Total Hemoglobin 10.9 g/dL (14-18)
--- NOTE | 2025-01-31 17:45 | CTR_ITS ---
PROCEDURE INFORMATION: Exam: CT Chest Without Contrast; Diagnostic Exam date and time: 01/31/2025 8:02 PM Age: 64 years old Clinical indication: Other: Resp failure TECHNIQUE: Imaging protocol: Diagnostic computed tomography of the chest without contrast. Radiation optimization: All CT scans at this facility use at least one of these dose optimization techniques: automated exposure control; mA and/or kV adjustment per patient size (includes targeted exams where dose is matched to clinical indication); or iterative reconstruction. COMPARISON: CT angio chest PE protcl [id number] 06/22/2021 11:50 PM RADIATION DOSE METRICS: Total DLP (mGy-cm): 687.51 FINDINGS: Lungs: Patchy bilateral airspace opacities suggestive of pneumonic infiltrates. Short-term 2 to three-week follow-up exam advised to assess for resolution. Pleural spaces: Moderate bilateral right greater than left pleural effusions. Heart: Unremarkable. No cardiomegaly. No pericardial effusion. Lymph nodes: Unremarkable. No enlarged lymph nodes. Vasculature: Coronary artery and aortic atherosclerotic calcifications. Gallbladder and biliary ducts: Cholecystectomy. Kidneys: Perinephric edema bilaterally likely reflecting renal insufficiency. Bones/joints: Unremarkable. No acute fracture. Soft tissues: Unremarkable. CT/CT chest wo con [id number] IMPRESSION: 1. Moderate bilateral right greater than left pleural effusions. 2. Coronary artery and aortic atherosclerotic calcifications. 3. Cholecystectomy. 4. Perinephric edema bilaterally likely reflecting renal insufficiency. 5. Patchy bilateral airspace opacities suggestive of pneumonic infiltrates. Short-term 2 to three-week follow-up exam advised to assess for resolution.
--- NOTE | 2025-01-31 17:47 | P.HP_ITS ---
Providers/Chief Complaint 2 Primary Care Provider: Cosmo Cazares MD Chief Complaint: SOB History of Present Illness Mark Katz is a 64 year old male with past medical history of end-stage renal disease on hemodialysis TTS, type 2 diabetes mellitus on insulin presents to the ER today because of difficulty in breathing. As per the patient and spouse at bedside he missed 2 sessions of dialysis last week because of pain in his arm. He presented to the ER on Friday when he was discharged on Solu-Medrol and doxycycline. Today he went back to dialysis center where they were able to dialyze him and had an ultrafiltrate of 1 L but he continued to have difficulty in breathing so they transferred him to ER. In the ER he required BiPAP ventilation. Currently is awake and alert saturating 99% on 35% FiO2 BiPAP. Denies any nausea, vomiting, headache, dizziness, fever, dysuria. States he has chronic diarrhea because of IBS. States he has been coughing without any expectoration. In the ER he was tachycardic, hypertensive for which he was given 10 of IV labetalol. Review of Systems 2 General: Reports: 10 or more systems reviewed and unremarkable except in HPI and below Const: Denies: fever(s), chills, body aches, change in appetite, change in weight, malaise, night sweats, diaphoresis, change in sleep pattern, daytime sleepiness or snoring Eyes: Denies: change in vision, blurry vision, photophobia, eye discomfort or eye discharge ENMT: Denies: throat pain, enlarged tonsils, hoarseness, mouth pain, oral sores, dry mouth, tinnitus, nasal congestion or post nasal drip Card: Denies: chest pain, palpitations, irregular heart rhythm, edema, swelling of feet/ankles, lightheadedness, syncope, pre-syncope, dyspnea on exertion, orthopnea, leg pain with exertion or acrocyanosis Resp: Denies: dyspnea, productive cough, non-productive cough, wheezing, stridor, pain on inspiration, change in phlegm color, hemoptysis or chest congestion GI: Denies: abdominal pain, nausea, vomiting, hematemesis, coffee ground emesis, dysphagia, heartburn, diarrhea, constipation, bloating, GI cramping, change in bowel habits, pain on defecation, hematochezia or melena : Denies: flank pain, difficulty urinating, dysuria, urinary frequency, urinary urgency, urinary hesitancy, urinary dribbling, difficulty starting urination, change in urine stream, nocturia or hematuria Musc: Denies: neck pain, back pain, extremity pain, joint pain, joint swelling, joint redness, joint stiffness or limited range of motion Neuro: Denies: headache(s), numbness in extremities, weakness in extremities, sensory changes, lack of coordination, difficulty walking, frequent falls, dizziness, vertigo, confusion, Slurred speech present, difficulty communicating thoughts or seizure-like activity Psych: Denies: anxiety, depression, mood swings, panic attacks, hopelessness or irritability Endo: Denies: polyuria, polydipsia, tired all the time, cold intolerance, excessive sweating, flushing or heat intolerance Francisco/Lymph: Denies: easy bruising or easy bleeding All/Imm: Denies: tongue swelling, facial swelling or acute wheezing Medications/Allergies Home Medications ?Medication ?Instructions ?Recorded ?Confirmed ?Last Taken ?Type blood sugar diagnostic (Blood #300 ea 05/07/23 5 Unknown Rx Glucose Test strips) blood-glucose meter #1 ea 05/07/23 01/29/25 Unkn own Rx lancets #300 ea 05/07/23 01/29/25 Un known Rx blood-glucose sensor (Dexcom G7 08/20/23 01/29/25 Unk nown History Sensor device) blood-glucose,endorsement clerk,cont 08/20/23 01/29/25 Unknown History (Dexcom G7 School Manager) calcium acetate 667 mg tablet 1,334 mg PO TID 01/27/24 01/29/25 01/29/25 History albuterol sulfate 90 mcg/actuation 2 puff inhalation Q 6H PRN 02/26/24 01/29/25 Unknown Rx aerosol inhaler (Ventolin HFA) bronchospasm #8.5 grams insulin glargine U-300 conc 300 36 unit (0.12 mL) SUBC UT DAILY 02/26/24 01/29/25 01/29/25 Rx unit/mL (1.5 mL) subcutaneous pen #4.5 mL (Toujeo SoloStar U-300 Insulin) loratadine 10 mg tablet (Claritin) 10 mg PO DAILY #90 tabs 02/26/24 01/29/2501/29/25 Rx torsemide 20 mg tablet 40 mg (2 x 20 mg) PO DAILY # 30 tabs 02/26/24 01/29/25 11/01/24 Rx insulin lispro 100 unit/mL 15 unit (0.15 mL) SUBCUT TI D #45 mL 05/06/24 01/29/25 01/29/25 Rx subcutaneous pen (Humalog KwikPen (U-100) Insulin) Diabetic shoes #1 ea 06/21/24 01/29/25 Unkn own Rx sevelamer carbonate 800 mg tablet 1,600 mg PO TID 10/1001/29/25 01/29/25 History vit B,C-folic ac 800 mcg-zinc 12.5 1 tab PO DAILY 10/1001/29/25 01/29/25 History mg-selen-D3 2,000 unit-vit E tablet (RenaPlex-D) tramadol 50 mg tablet 50 mg PO Q8H PRN pain 30 day s #90 11/29/24 01/29/25 Unknown Rx tabs doxycycline hyclate 100 mg capsule 100 mg PO BID 10 da ys #20 caps 01/29/25 Unknown Rx prednisone 5 mg tablets in a dose See Rx Instructions PO .COMPLEX 01/29/25 Unknown Rx pack #21 ea Allergies Allergy/AdvReac Type Severity Reaction Status Date / Time nalbuphine (From Nubain) Allergy ALGY-Rash Verified 12/20/24 14:15 prochlorperazine (From Allergy EPS Verified 12/20/24 14:15 Compazine) PFSH Acute 2 PFSH: Medical History Tobacco use disorder, moderate, dependence Diabetic retinopathy Chronic pain (HFpEF) heart failure with preserved eje ction fraction IDDM (insulin dependent diabetes mellitus) ESRD (end stage renal disease) Central line January 2024 with dialysis x3 week Diabetes mellitus type 2 with complications Diabetic neuropathy associated with diabetes mellitus due to underlying condition Opioid dependence Followed by [facility] in [place] Tobacco abuse COPD (chronic obstructive pulmonary disease) Noncompliance with CPAP treatment Obstructive sleep apnea Hypertension Anxiety and depression Lymphadenopathy Surgical History Hx of vasectomy Hx of cholecystectomy No pertinent past surgical history Family History Mother CAD (coronary artery disease) Father Diabetes Other Hypertension Denies family history of Clotting disorder Dementia Chronic kidney disease (CKD) Suicide Anesthesia complication Bleeding disorder Lung disease Cancer Stroke Social History Smoking and tobacco/nicotine status: unknown if used tobacco/nicotine Alcohol intake: never Substance/Drug Use: never Vitals/I&O/Wt Last Vital Signs Temp 98.8 F 01/31/25 15:45 Pulse 95 01/31/25 17:40 Resp 37 H 01/31/25 15:53 BP 133/78 01/31/25 17:30 Pulse Ox 100 01/31/25 17:40 O2 Del Method BiPAP 01/31/25 17:30 O2 Flow Rate 5 01/31/25 15:38 FiO2 35 01/31/25 17:40 Weight last 48 hrs Weight 108 kg Physical Exam 2 Narrative: General: No acute distress, AO x3, currently on BiPAP, diaphoretic HEENT: PERRLA, pupils bilaterally equal and reactive Chest: Bilateral bronchial breath sounds over lung mcf[place]ane, fine crackles bilaterally mid lungs CVS: S1-S2 regular, no murmurs, no tachycardia, no gallops, no rubs Abdomen: Soft, nontender, no organomegaly, bowel sounds present Neuro: No focal deficits, no facial deformity, AO x3, power 5/5 in all limbs Quick SOFA Score: Respiratory Rate: 37 Blood Pressure: 133/78 [place] Coma Scale: 15 qSOFA Score: 1 If qSOFA score 2 or greater, continue: PaO2/FiO2 Ratio (mmHg): 272 Blood Pressure Mean: 96 Bilirubin (mg/dl): 0.6 Platelets (x10?/ml): 129 C reatinine (mg/dl): 6.1 SOFA Score: 7 Evaluation: Current stage of sepsis: sepsis Sepsis stage criteria used: [facility] Sep-1 and Sepsis-3 Crystalloid fluids: no fluids ordered Blood cultures ordered: Yes Possible source: pulmonary Focused Exam: Vital signs: Temp Pulse Resp BP Pulse Ox O2 Del Method O2 Flow Rate 01/31/25 17:40 95 100 01/31/25 17:30 98 133/78 93 BiPAP 01/31/25 16:00 149/98 01/31/25 15:53 128 H 100 01/31/25 15:53 127 H 37 H 100 BiPAP 01/31/25 15:45 98.8 F 01/31/25 15:38 131 H 26 H 170/93 90 Nasal Cannula 5 FiO2 01/31/25 17:40 35 01/31/25 17:30 01/31/25 16:00 01/31/25 15:53 35 01/31/25 15:53 35 01/31/25 15:45 01/31/25 15:38 Date exam was performed: 01/31/25 Time exam was performed: 18:09 2 Sepsis Screen No Definite Risk Today, 17:30 Respiratory Rate, (12 - 18) 37 breaths/min H Today, 15:53 Blood Pressure 133/78 mmHg Today, 17:30 [place] Coma Scale Score 15 Today, 15:38 Quick SOFA Score 0 Today, 17:30 SOFA Score: 2 ABG PO2/FiO2 Ratio 272 Today, 17:20 Angelo Coma Scale Score 15 Today, 15:38 Blood Pressure Mean 96 mmHg Today, 17:30 Total Bilirubin, (0.15-1.2) 0.6 mg/dL Today, 16:30 Platelet Count, (157-399) 129 10^3/cmm L Today, 16:30 Creatinine, (0.7-1.2) 6.1 mg/dL H* Today, 16:30 Data 01/31/25 16:30 01/31/25 16:30 A&P Assessment and plan (1) Acute hypoxemic respiratory failure: Most likely in setting of diastolic congestive heart failure because of missing dialysis sessions in setting of end-stage renal disease and hypertensive urgency. Currently on BiPAP. Oxygen supplementation keeping saturation 90%. (2) CHF exacerbation: Last known EF of 59% grade 3 diastolic dysfunction, mild aortic valve stenosis with aortic valve area of 2.4. Repeat echocardiogram. Cycle troponins Mostly in setting of hypertensive urgency because of end-stage renal disease and missed dialysis. Fluid restriction to less than 1500 cc. Nephrology consulted for emergent dialysis. (3) (HFpEF) heart failure with preserved ejection fraction: As above. (4) Hypertension: Goal blood pressure less than 140/90 mmHg. Will monitor blood pressures and add antihypertensive as needed. (5) IDDM (insulin dependent diabetes mellitus): Check A1c. Insulin sliding scale at low-dose protocol AC and at bedtime. Takes glargine 36 units daily and Humalog 15 units 3 times daily. (6) COPD (chronic obstructive pulmonary disease) with emphysema: Pulmicort twice daily, ipratropium, Xopenex every 6 hours. Hold off on steroids for now. CT chest without contrast. (7) Leukocytosis: Patient does have leukocytosis. History of UTI. Cannot rule out pneumonia. Leukocytosis most likely in setting of steroids started on Friday. Patient has chronic diarrhea. Rule out C. difficile. CT chest to rule out pneumonia. Check sputum culture, blood culture, lactate, procalcitonin. Empirically start on IV vancomycin and Zosyn as per creatinine clearance. Azithromycin for atypical coverage. (8) ESRD (end stage renal disease): Consult nephrology. On hemodialysis through graft. Continue home dose of sevelamer. (9) Hyperkalemia: (10) Metabolic acidosis: Plan CODE STATUS: Full code Diabetic renal dialysis diet Protonix for PUD prophylaxis Heparin 5000 every 12 hourly for DVT prophylaxis PDMP PDMP Reviewed: Not Reviewed Attestations 2 Medical Necessity Statement*: Admission for more than 2 midnights for management of acute hypoxic respiratory failure in setting of end-stage renal disease, missed dialysis, leukocytosis with concerns for pneumonia, metabolic acidosis, hyperkalemia Critical Care Time: The high probability of a clinically significant, sudden or life threatening deterioration of the patient's [cardiac, pulmonary, renal] system(s) required my full and direct attention, intervention and personal management. The critical care time is as shown. This time is in addition to time spent performing any reported procedures but includes the following: [x] Data and vital sign review and interpretation [x] Patient assessment, examination and intervention [x] Documentation [x] Medication orders and management Critical Care Time (min): 70 Coding Level of Care Code Critical Care >/= 30 minutes Critical care time (in minutes): 70 The high probability of a clinically significant, sudden or life threatening deterioration, as referenced in this documentation, required my full and direct attention, intervention and personal management. The critical care time shown is in addition to time spent performing any reported separately billable procedures and includes the following: [x] Data and vital sign review and interpretation [x ] Patient assessment, examination and intervention [x] Medication orders and management [x] Patient/Family updates as able [x] Care Coordination and Documentation. Other Coding Information This patient has a high probability of clinically significant, sudden or life threatening deterioration of the patient's (neurological/pulmonary/cardiac/renal/ID/endocrine) systems required my full, direct attention, the highest level of physician preparedness for urgent intervention and personal management. I managed/supervised life or organ supporting interventions that required frequent physician assessment. I devoted my full attention in the ICU to the direct care of this patient for the period of time indicated above. Time I spent with family or surrogate(s) is included only if the patient was incapable of providing necessary information or participating in decision making. This time includes the following services provided: Telemetry review Nonmechanical ventilation Hemodynamic interpretation, assessment and management Review and interpretation of CXR Review and interpretation of lab values Review and interpretation of microbiologic data and culture results Review of medications and administration Review and interpretation of Nutrition requirements and management Discussion of management with other consultants and services Clinical update to family members Diagnoses Acute hypoxemic respiratory failure J96.01 Acute on chronic combined systolic and diastolic congestive heart failure I50.43 Heart failure type: combined systolic and diastolic (HFpEF) heart failure with preserved ejection fraction I50.30 Renovascular hypertension I15.0 Hypertension type: renovascular hypertension IDDM (insulin dependent diabetes mellitus) Centrilobular emphysema J43.2 Emphysema type: centrilobular Leukocytosis D72.829 ESRD (end stage renal disease) N18.6 Hyperkalemia E87.5 Metabolic acidosis E87.20
--- NOTE | 2025-01-31 17:51 | PHA.VACGOAL ---
Vancomycin Goal - Goal Vancomycin Goal:: 15-20 mg/L Vancomycin Indication:: Other - Therapy Current therapy:: Pip/Tazo Day of therpy:: Day []of [] . Actual body weight (kg): 238 lb 1.588 oz - Data Labs: WBC 23.02 10^3/uL (3.29-11.43) H 01/31/25 16:30 RBC 3.13 10^6/uL (3.85-5.65) L 01/31/25 16:30 Hgb 10.80 g/dL (11.27-16.99) L 01/31/25 16:30 Hct 34.6 % (37-53) L 01/31/25 16:30 MCV 110.5 fl (82-101) H 01/31/25 16:30 MCH 34.5 pg (27-33) H 01/31/25 16:30 MCHC 31.2 g/dL (30-55) 01/31/25 16:30 RDW 13.1 % (12.1-15.1) 01/31/25 16:30 Sodium 139 mmol/L (136-145) 01/31/25 16:30 Potassium 5.7 mmol/L (3.5-5.1) H 01/31/25 16:30 Chloride 102 mmol/L (98-107) 01/31/25 16:30 Carbon Dioxide 18 mmol/L (22-29) L 01/31/25 16:30 Anion Gap 24.7 (5-19) H 01/31/25 16:30 BUN 67 mg/dL (8-23) H 01/31/25 16:30 Creatinine 6.1 mg/dL (0.7-1.2) H* 01/31/25 16:30 GFR Calculation 9.3 mL/min (90-130) L 01/31/25 16:30 Last dialysis session:: N/A Treatment plan:: new consult Regimen:: PULSE DOSING DUE TO RENAL FUNCTION PER DOSING PROTOCOL. WILL GIVE 2000 MG DOSE NOW X1. WILL OBTAIN LEVEL 24 HOURS POST LOADING DOSE. Follow up:: TROUGH 01/31 @1800
--- NOTE | 2025-01-31 18:07 | P.CONIM_ITS ---
Providers/Reason For Consult 2 Consulting Physician/Specialty*: Gunnar Barry MD/telemetry nephrology Reason for Consult*: ESRD care, volume overload Requesting Physician: Ruy Oliveira MD Attending Physician: Ruy Oliveira MD Primary Care Provider: Cosmo Cazares MD History of Present Illness History of Present Illness Mark Katz is a 64 year old male history of ESRD on dialysis Friday, COPD, JAYJAY, heart failure preserved EF, diabetes, hypertension. The patient missed dialysis last and Friday. The patient went to dialysis today they started doing dialysis he was severely short of breath and patient was sent to the emergency room. Renal was called to provide dialysis. The patient is on BiPAP. The patient was in the emergency room also on January 29 received Solu-Medrol and felt better per notes. History is limited as patient is on BiPAP and very short of breath. Review of Systems 2 Narrative: Orthopnea dyspnea shortness of breath chest discomfort pressure leg edema swelling nausea weakness and vomiting Medications/Allergies Home Medications ?Medication ?Instructions ?Recorded ?Confirmed ?Last Taken ?Type blood sugar diagnostic (Blood #300 ea 05/07/23 5 Unknown Rx Glucose Test strips) blood-glucose meter #1 ea 05/07/23 01/29/25 Unkn own Rx lancets #300 ea 05/07/23 01/29/25 Un known Rx blood-glucose sensor (Dexcom G7 08/20/23 01/29/25 Unk nown History Sensor device) blood-glucose,top collar baster,cont 08/20/23 01/29/25 Unknown History (Dexcom G7 Temple Meat Cutter) calcium acetate 667 mg tablet 1,334 mg PO TID 01/27/24 01/29/25 01/29/25 History albuterol sulfate 90 mcg/actuation 2 puff inhalation Q 6H PRN 02/26/24 01/29/25 Unknown Rx aerosol inhaler (Ventolin HFA) bronchospasm #8.5 grams insulin glargine U-300 conc 300 36 unit (0.12 mL) SUBC UT DAILY 02/26/24 01/29/25 01/29/25 Rx unit/mL (1.5 mL) subcutaneous pen #4.5 mL (Toujeo SoloStar U-300 Insulin) loratadine 10 mg tablet (Claritin) 10 mg PO DAILY #90 tabs 02/26/24 01/29/25 01/29/25 Rx torsemide 20 mg tablet 40 mg (2 x 20 mg) PO DAILY # 30 tabs 02/26/24 01/29/25 11/01/24 Rx insulin lispro 100 unit/mL 15 unit (0.15 mL) SUBCUT TI D #45 mL 05/06/24 01/29/25 01/29/25 Rx subcutaneous pen (Humalog KwikPen (U-100) Insulin) Diabetic shoes #1 ea 06/21/24 01/29/25 Unkn own Rx sevelamer carbonate 800 mg tablet 1,600 mg PO TID 10/1001/29/25 01/29/25 History vit B,C-folic ac 800 mcg-zinc 12.5 1 tab PO DAILY 10/1001/29/25 01/29/25 History mg-selen-D3 2,000 unit-vit E tablet (RenaPlex-D) tramadol 50 mg tablet 50 mg PO Q8H PRN pain 30 day s #90 11/29/24 01/29/25 Unknown Rx tabs doxycycline hyclate 100 mg capsule 100 mg PO BID 10 da ys #20 caps 01/29/25 Unknown Rx prednisone 5 mg tablets in a dose See Rx Instructions PO .COMPLEX 01/29/25 Unknown Rx pack #21 ea Allergies Allergy/AdvReac Type Severity Reaction Status Date / Time nalbuphine (From Nubain) Allergy ALGY-Rash Verified 12/20/24 14:15 prochlorperazine (From Allergy EPS Verified 12/20/24 14:15 Compazine) PFSH Acute 2 PFSH: Medical History Tobacco use disorder, moderate, dependence Diabetic retinopathy Chronic pain (HFpEF) heart failure with preserved eje ction fraction IDDM (insulin dependent diabetes mellitus) ESRD (end stage renal disease) Central line January 2024 with dialysis x3 week Diabetes mellitus type 2 with complications Diabetic neuropathy associated with diabetes mellitus due to underlying condition Opioid dependence Followed by [facility] in [place] Tobacco abuse COPD (chronic obstructive pulmonary disease) Noncompliance with CPAP treatment Obstructive sleep apnea Hypertension Anxiety and depression Lymphadenopathy Surgical History Hx of vasectomy Hx of cholecystectomy No pertinent past surgical history Family History Mother CAD (coronary artery disease) Father Diabetes Other Hypertension Denies family history of Clotting disorder Dementia Chronic kidney disease (CKD) Suicide Anesthesia complication Bleeding disorder Lung disease Cancer Stroke Social History Smoking and tobacco/nicotine status: unknown if used tobacco/nicotine Alcohol intake: never Substance/Drug Use: never Vitals/I&O/Wt Last Vital Signs Temp 98.8 F 01/31/25 15:45 Pulse 95 01/31/25 17:40 Resp 37 H 01/31/25 15:53 BP 133/78 01/31/25 17:30 Pulse Ox 100 01/31/25 17:40 O2 Del Method BiPAP 01/31/25 17:30 O2 Flow Rate 5 01/31/25 15:38 FiO2 35 01/31/25 17:40 Weight last 48 hrs Weight 108 kg Physical Exam 2 Narrative: Vital signs noted. Patient is using BiPAP. Patient sitting up in bed, uncomfortable using BiPAP and short of breath HEENT normocephalic atraumatic Neck has JVP Lungs crackles and wheezes bilaterally. Heart positive S1-S2 tachycardic. Abdomen soft positive bowel sounds Patient has left upper extremity AV fistula with thrill and bruit. Extremities bilateral edema. Neuro awake alert oriented x 3 moves. Interactive. Data 01/31/25 16:30 01/31/25 16:30 A&P Assessment and plan (1) ESRD (end stage renal disease): 64-year-old gentleman obesity hypertension diabetes heart failure preserved EF, COPD, obstructive sleep apnea. The patient has ESRD is on hemodialysis thrice weekly for a year. The patient missed dialysis on Friday and . The patient was in the emergency room on Friday and given steroids. The patient went to dialysis today and had worsening pulmonary edema and shortness of breath and patient was sent to the emergency room 1. ESRD 5 overloaded on BiPAP and hyperkalemia we will perform emergent dialysis now for 3 hours on a 2 potassium bath and attempt to remove 2-2.5 L. Will send hepatitis serologies 2. Monitor blood pressure. 3. Please check a cardiac echo. 4. Assess in a.m. for repeat dialysis. 5. Diabetic care. 6. Leukocytosis antibiotics as needed as per medicine. Further intervention will depend on how patient does with dialysis now. Will have to discuss with the patient further why he missed dialysis and stressed the importance of compliance with his dialysis schedule. The patient was seen examined using A/V equipment and the aid of a nurse. The patient consented to telehealth and to hemodialysis. Case discussed in detail with the patient, his , nurse and Dr. Young Plan Emergency dialysis. See above for further PDMP PDMP Reviewed: Not Reviewed Consult Attestations 2 Medical Necessity Statement: Severe respiratory distress, leukocytosis, ESRD, heart failure preserved EF, diabetic, COPD/JAYJAY Time Spent in Patient Care: Greater than 35 minutes (>than 50% of time spent in counselling and/or direct pt care on unit) . Coding Level of Care Code Acute Code for [facility] Fwd Diagnoses ESRD (end stage renal disease) N18.6
--- NOTE | 2025-01-31 18:11 | ECG_ITS ---
[facility] Date: 2025-01-31 Pat Name: Mark Katz Department: Room: ED Gender: Male Strategic Marketing Leader: : 1960 Requested By: Ruy Oliveira Order Number: [id number] Pelon MD: Deion Chin M.D. Measurements Intervals [place] Rate: 96 P: 58 PA: 150 QRS: -38 QRSD: 113 T: 97 QT: 369 QTc: 467 Interpretive Statements SINUS RHYTHM LEFT AXIS DEVIATION [QRS AXIS < -30] MODERATE INTRAVENTRICULAR CONDUCTION DELAY [110+ ms QRS DURATION] Compared to ECG 01/31/2025 15:42:56 Left-axis deviation now present Intraventricular conduction delay now present Ventricular premature complex(es) no longer present Right bundle-branch block no longer present Left anterior fascicular block no longer present Left ventricular hypertrophy no longer present Myocardial infarct finding no longer present ST (T wave) deviation still present Electronically Signed On 02-01-2025 17:15:35 CDT by Deion Chin M.D. [email or web address]
[2025-01-31] MEDS: AZITHROMYCIN ADD-Vantage 500 MG in 0.9% NaCl ADD-Vantage 250 ML 250 MG IV (18:15)
[2025-01-31 18:20] LABS: Procalcitonin 0.52 ng/mL (0-0.5)
[2025-01-31] MEDS: piperacillin-tazobactam 3.375 GM in sodium chloride 0.9% (plus) 50 ML IV (18:20)
[2025-01-31 18:40] LABS: Reflex Lactate Order REFLEX LACTIC ORDERD
[2025-01-31 18:49] LABS: Troponin(5th) Baseline 159 ng/L (0-15)
[2025-01-31 19:47] LABS: Lactic Acid level (Lactate) 1.7 mmol/L (0.5-2.2)
[2025-01-31 20:15] LABS: Iron 32 ug/dL (59-158); Percent Saturation 11.2 % (20-50); Thyroid Stimulating Hormone 2.38 uIU/mL (0.27-4.20); Total Iron Binding Capacity 284 mcg/dl; Unsaturated Iron Binding 252 ug/dL (112-347); Vitamin B12 658 pg/mL (232-1245)
[2025-01-31] MEDS: ipratropium 0.5 mg/2.5 mL Neb INHALATION (20:38)
[2025-01-31] MEDS: levalbuterol 0.63 mg/3 mL Neb INHALATION (20:38)
[2025-01-31 20:41] LABS: Estmated Average Glucose 163; Hemoglobin A1C 7.3 % (4.0-6.0)
--- NOTE | 2025-01-31 21:12 | ECG_ITS ---
[employer] [facility] Test Date: 2025-01-31 Pat Name: Mark Katz Department: Room: ICU09 Gender: Male Medical Case Manager: : 1960 Requested By: Ruy Oliveira Order Number: [id number] Pelon MD: Deion Chin M.D. Measurements Intervals [place] Rate: 100 P: 52 ID: [id number] QRS: -41 QRSD: 116 T: 100 QT: 363 QTc: 470 Interpretive Statements SINUS TACHYCARDIA POSSIBLE LEFT ATRIAL ENLARGEMENT [-0.1mV P-WAVE IN V1/V2] LEFT AXIS DEVIATION [QRS AXIS < -30] MODERATE INTRAVENTRICULAR CONDUCTION DELAY [110+ ms QRS DURATION] ST ELEVATION, CONSIDER SEPTAL INJURY [MARKED ST ELEVATION W/O NORMALLY INFLECTED T-WAVE IN V1/V2] INTERPRETATION BASED ON A DEFAULT AGE OF 40 YEARS Compared to ECG 01/31/2025 18:54:24 Sinus rhythm no longer present ST (T wave) deviation still present Electronically Signed On 02-01-2025 17:46:04 CDT by Deion Chin M.D. [email or web address]
[2025-01-31 21:20] LABS: Troponin 5 2HR Delta -6.6 ABS# (0-10)
[2025-01-31 21:23] LABS: Troponin 5 2HR 152.4 ng/L (0-15)
[2025-01-31] MEDS: heparin 5,000 unit/mL INJ 1 mL 5000 UNIT SUBCUT (21:32)
[2025-01-31] MEDS: vancomycin 2,000 MG/400 ML PIGGYBACK 200 MG IV (21:33)
[2025-01-31] MEDS: docusate sodium 100 mg Capsule PO (21:33)
[2025-01-31 22:06] LABS: Hepatitis B Surface AB 13.2 (11.5-1000); Hepatitis B Surface Antigen Non-Reactive (Nonreactive)
[2025-01-31 22:07] LABS: Hepatitis C Virus Antibody Non-Reactive (Nonreactive)
[2025-01-31] MEDS: HYDROcodone-acetaminophen 10-325 mg Tablet 1 TAB PO (23:10)
[2025-01-31 23:37] LABS: Glucose Point of Care 262 mg/dL (70-110)
[2025-02-01] VITALS (51 sets, daily range): BP systolic 98–144; BP diastolic 55–83; PULSE 84–105; RESP 11–29; TEMP 36.4–37.7; O2SAT 84–100
[2025-02-01] MEDS: pantoprazole 40 mg SDV IVP (00:01)
[2025-02-01] MEDS: insulin lispro 100 unit/1 mL SUBCUT ×4 (00:09→20:37)
[2025-02-01] MEDS: morphine 4 mg/mL SDV 1 mL 2 MG IVP (01:25)
[2025-02-01] MEDS: levalbuterol 0.63 mg/3 mL Neb INHALATION ×4 (02:28→19:58)
[2025-02-01] MEDS: ipratropium 0.5 mg/2.5 mL Neb INHALATION ×4 (02:28→19:58)
[2025-02-01 03:47] LABS: Basophils % 0.1 %; Hematocrit 29.5 % (37-53); Lymphocytes # 0.7 10^3/uL (0.8-4.8); Lymphocytes % 5.7 %; Mean Corpuscular HGB Conc 32.2 g/dL (30-55); Mean Corpuscular Hemoglobin 34.7 pg (27-33); Mean Corpuscular Volume 107.7 fl (82-101); Mean Platelet Volume 11.9 fL (7.4-10.4); Monocytes # 0.3 10^3/uL (0.2-0.9); Monocytes % 2.1 %; Neutrophils # 10.97 10^3/uL (1.8-7.7); Nucleated Red Blood Cells % 0 %; Platelet Count 116 10^3/cmm (157-399); Red Blood Count 2.74 10^6/uL (3.85-5.65); Red Cell Distribution Width 13.2 % (12.1-15.1); White Blood Count 12.05 10^3/uL (3.29-11.43)
[2025-02-01 04:15] LABS: Chol HDL Ratio 3.15 mg/dL (1.0-5.00); Cholesterol 107 mg/dL (0-200); HDL Cholesterol 34 mg/dL (60-100); LDL Cholesterol Calculated 53 mg/dL (50-129); LDL HDL Ratio 1.56 RATIO (0.00-3.22); Triglycerides 99 mg/dL (0-150); Vancomycin Random 22.7 ug/mL (20.0-40.0)
[2025-02-01 04:16] LABS: Alanine Aminotransferase 40 U/L (0-41); Albumin Level 3.7 g/dL (3.5-5.2); Alkaline Phosphatase 67 U/L (40-130); Anion Gap 22.2 (5-19); Aspartate Amino Transferase 21 U/L (0-40); Blood Urea Nitrogen 46 mg/dL (8-23); Calcium 8.2 mg/dL (8.5-10.5); Carbon Dioxide 21 mmol/L (22-29); Chloride 99 mmol/L (98-107); Creatinine Clr Calc Pharmacy 20.2066; Globulin 3.2 g/dL (1.3-4.6); Glomerular Filtration Rate 13.9 mL/min (90-130); Glucose 384 mg/dL (65-115); Osmolality Calculated 312 mOsm/kg (285-295); Potassium 5.2 mmol/L (3.5-5.1); Sodium 137 mmol/L (136-145); Total Bilirubin 0.7 mg/dL (0.15-1.2); Total Protein 6.9 g/dL (6.6-8.7)
[2025-02-01 04:18] LABS: Procalcitonin 1.77 ng/mL (0-0.5)
[2025-02-01 04:21] LABS: Troponin 5 6HR Delta -7.8 ng/L (0-12)
[2025-02-01 04:23] LABS: Troponin 5 6HR 151.2 ng/L (0-15)
[2025-02-01] MEDS: HYDROcodone-acetaminophen 10-325 mg Tablet 1 TAB PO ×4 (04:24→20:52)
[2025-02-01 04:33] LABS: Folate Level 8.6 ng/mL (4.5-32.2)
[2025-02-01] MEDS: piperacillin-tazobactam 3.375 GM in sodium chloride 0.9% (plus) 50 ML IV ×2 (05:13→17:19)
[2025-02-01 07:38] LABS: Glucose Point of Care 309 mg/dL (70-110)
[2025-02-01] MEDS: heparin 5,000 unit/mL INJ 1 mL 5000 UNIT SUBCUT ×2 (08:15→20:15)
[2025-02-01] MEDS: docusate sodium 100 mg Capsule PO ×2 (08:15→17:18)
[2025-02-01] MEDS: insulin glargine 100 units/1 mL 30 UNIT SUBCUT (09:44)
[2025-02-01] MEDS: calcium acetate 667 mg Capsule 1334 MG PO ×3 (09:47→20:35)
--- NOTE | 2025-02-01 10:24 | PM.PN ---
Subjective Subjective: The patient was seen and examined. The patient is feeling better than yesterday. He is able to sit up now. The patient did not have a good reason for missing dialysis last week. The patient still has crackles and some nausea and shortness of breath but is not using oxygen. He has some edema. Medications: Reviewed: Yes Medication Review Details: Current Medications Acetaminophen (Acetaminophen 325 Mg Tablet) 650 mg PO Q6H PRN PRN Reason: Mild/Mod Pain Or Temp >/= 101 Hydrocodone Bitart/Acetaminophen (Hydrocodone-Acetaminophen 10-325 Mg Tablet) 1 tab PO Q6H PRN PRN Reason: MODERATE PAIN Azithromycin (Azithromycin 250 Mg Tablet) 500 mg PO QPM [facility]; Protocol Calcium Acetate (Calcium Acetate 667 Mg Capsule) 1,334 mg PO TID [facility] Last Admin: 02/01/25 09:47 Dose: 1,334 mg Docusate Sodium (Docusate Sodium 100 Mg Capsule) 100 mg PO BID [facility] Last Admin: 02/01/25 08:15 Dose: 100 mg Glucagon (Glucagon 1 Mg/Ml Kit 1 Ml) 1 mg IM ONCE PRN; Protocol PRN Reason: Adult Acute Hypoglycemia Nursing Prot. Heparin Sodium (Porcine) (Heparin 5,000 Unit/Ml Inj 1 Ml) 5,000 unit SUBCUT Q12H [facility] Last Admin: 02/01/25 08:15 Dose: 5,000 unit Piperacillin Sod/Tazobactam (Sod 3.375 gm/ Sodium Chloride) 50 mls @ 12.5 mls/hr IV Q12H [facility] Last Admin: 02/01/25 05:13 Dose: 12.5 mls/hr Albumin Human (Albumin) 12.5 gm in 50 mls @ 60 mls/hr IV PRN PRN PRN Reason: Hypotension and/or symptomatic Dextrose (D5w) 500 mls @ 0 mls/hr IV ONCE PRN; Protocol PRN Reason: Adult Acute Hypoglycemia Prot Dextrose (D10w) 125 mls @ 750 mls/hr IV PRN PRN; Protocol PRN Reason: Adult Acute Hypoglycemia Nursing Protocol Dextrose (D10w) 250 mls @ 1,000 mls/hr IV PRN PRN; Protocol PRN Reason: Adult Acute Hypoglycemia Nursing Protocol Albumin Human (Albumin) 12.5 gm in 50 mls @ 60 mls/hr IV PRN PRN PRN Reason: Hypotension and/or symptomatic Insulin Glargine (Insulin Glargine 100 Units/1 Ml) 30 unit SUBCUT QAM [facility] Last Admin: 02/01/25 09:44 Dose: 30 unit Insulin Human Lispro (Insulin Lispro 100 Unit/1 Ml) 0 unit SUBCUT WM&BEDTIME [facility]; Protocol Last Admin: 02/01/25 08:15 Dose: 10 unit Ipratropium [place] (Ipratropium 0.5 Mg/2.5 Ml Neb) 0.5 mg INHALATION Q6H.RESP [facility] Last Admin: 02/01/25 09:01 Dose: 0.5 mg Lactulose (Lactulose Oral Liq 20 Gm/30 Ml Udc) 10 gm PO DAILY PRN; Protocol PRN Reason: Constipation (see protocol) Levalbuterol HCl (Levalbuterol 0.63 Mg/3 Ml Neb) 0.63 mg INHALATION Q6H.RESP [facility] Last Admin: 02/01/25 09:02 Dose: 0.63 mg Magnesium Hydroxide (Magnesium Hydroxide 30 Ml Udc) 30 ml PO DAILY PRN; Protocol PRN Reason: Constipation (see protocol) Morphine Sulfate (Morphine 4 Mg/Ml Sdv 1 Ml) 2 mg IVP Q4H PRN PRN Reason: SEVERE PAIN Last Admin: 02/01/25 01:25 Dose: 2 mg Non-Formulary Medication (Vit B,T-Xs-Zovv-Selen-Vit D3-E [Renaplex-D]) 1 tab PO DAILY [facility] Ondansetron HCl (Ondansetron 2 Mg/Ml Sdv 2 Ml) 4 mg IVP Q6H PRN PRN Reason: vomiting, or N/V if npo Pantoprazole Sodium (Pantoprazole 40 Mg Sdv) 40 mg IVP Q24H [facility] Last Admin: 02/01/25 00:01 Dose: 40 mg Vancomycin HCl (Vancomycin 1,000 Mg Sdv (Pharmacy Mix)) 0 mg XX PRN PRN PRN Reason: Pharmacy to Dose Vitals/I&O/Wt Last Vital Signs Temp 99.0 F 02/01/25 07:46 Pulse 93 02/01/25 08:00 Resp 16 02/01/25 08:00 BP 124/65 02/01/25 04:30 Pulse Ox 94 02/01/25 08:00 O2 Del Method Room Air 02/01/25 08:00 O2 Flow Rate 3 02/01/25 04:30 FiO2 35 01/31/25 22:00 01/31/25 02/01/25 02/01/25 22:59 06:59 14:59 Intake Total 412.291 / 666.265 5998.709 / 1780.000 Output Total 120 / 120 2954 / 3074 Balance 292.291 / 292.291 -1586.291 / -1294.000 Weight last 48 hrs Weight 108.494 kg Weight 112.2 kg Weight 112.99 kg Weight 108 kg Physical Exam Narrative: Vital signs noted. Patient sitting up in bed, comfortable he is not using oxygen HEENT normocephalic atraumatic Neck has JVP Lungs crackles bilaterally. No longer wheezing. Heart positive S1-S2 tachycardic. Abdomen soft positive bowel sounds Patient has left upper extremity AV graft with thrill and bruit. Extremities bilateral edema improving. Neuro awake alert oriented x 3 moves. Interactive. Data 02/01/25 03:20 02/01/25 03:20 Micro: Microbiology 01/31/25 17:53 Blood Culture - Preliminary Blood SPECIMEN COLLECTED 01/31/25 18:01 Blood Culture - Preliminary Blood SPECIMEN COLLECTED A&P Assessment and plan (1) ESRD (end stage renal disease): 64-year-old gentleman obesity hypertension diabetes heart failure preserved EF, COPD, obstructive sleep apnea. The patient has ESRD is on hemodialysis thrice weekly for a year. The patient missed dialysis on Friday and . The patient was in the emergency room on Friday and given steroids. The patient went to dialysis today and had worsening pulmonary edema and shortness of breath and patient was sent to the emergency room 1. ESRD -the patient presented with severe volume overload and hyperkalemia. The patient improved with emergent dialysis yesterday. The patient will repeat dialysis today or tomorrow based on nurse availability. 2. Pneumonia the patient is on vancomycin and azithromycin. Please monitor vancomycin levels. 3. Please check a cardiac echo. 4. Diabetic care per the hospitalist. 5. Anemia hemoglobin 9.5. Will monitor may need Epogen. Iron saturation of 11%, please check ferritin 6. Leukocytosis improving with antibiotics. 7. ABG reviewed from yesterday 7.33 pCO2 of 37 bicarbonate of 20. 8. Mild hyperphosphatemia on PhosLo. The patient was seen examined using A/V equipment and the aid of a nurse. The patient consented to telehealth and to hemodialysis. Case discussed in detail with the patient, nurse Plan Pneumonia ESRD diabetes anemia. Plan as above PDMP PDMP Reviewed: Not Reviewed Attestations Medical Necessity Statement*: Please see above. Time Spent in Patient Care: 16 - 35 minutes (>than 50% of time spent in counselling and/or direct pt care on unit). Coding Level of Care Code Acute Code for g Fwd Diagnoses ESRD (end stage renal disease) N18.6
[2025-02-01 11:55] LABS: MRSA PCR OZH (swab) NOT DETECTED (Negative)
[2025-02-01] MEDS: heparin, porcine 1,000 unit/mL INJ 10 mL 10000 UNIT HE (12:10)
--- NOTE | 2025-02-01 13:04 | PC.NURSE ---
Patient and patient's stated that they were not happy with the telenophrologist because they believe it is very unprofessional that someone does not come in person but is done via computer.
[2025-02-01 13:15] LABS: Glucose Point of Care 220 mg/dL (70-110)
--- NOTE | 2025-02-01 14:02 | PM.PN ---
Subjective Subjective: No acute events overnight. Patient underwent emergent dialysis last night. Currently on room air. Awake and alert. States breathing a lot better. Denies any nausea, vomiting, headache. Afebrile since admission. Vitals/I&O/Wt Last Vital Signs Temp 99.8 F H 02/01/25 12:00 Pulse 96 02/01/25 13:31 Resp 18 02/01/25 13:26 BP 125/67 02/01/25 12:00 Pulse Ox 99 02/01/25 13:26 O2 Del Method Nasal Cannula 02/01/25 13:26 O2 Flow Rate 4 02/01/25 13:26 FiO2 35 01/31/25 22:00 01/31/25 02/01/25 02/01/25 22:59 06:59 14:59 Intake Total 412.291 / 679.794 8878.709 / 1780.000 Output Total 120 / 120 2954 / 3074 Balance 292.291 / 292.291 -1586.291 / -1294.000 Weight last 48 hrs Weight 108.494 kg Weight 112.2 kg Weight 112.99 kg Weight 108 kg Physical Exam Narrative: General: No acute distress, AO x3, on room air HEENT: PERRLA, pupils bilaterally equal and reactive Chest: Bilateral bronchial breath sounds over lung mcfarlane, course crackles present in left lower zone CVS: S1-S2 regular, no murmurs, no tachycardia, no gallops, no rubs Abdomen: Soft, nontender, no organomegaly, bowel sounds present Neuro: No focal deficits, no facial deformity, AO x3, power 5/5 in all limbs Data 02/01/25 03:20 02/01/25 03:20 Micro: Microbiology 01/31/25 17:53 Blood Culture - Preliminary Blood SPECIMEN COLLECTED 01/31/25 18:01 Blood Culture - Preliminary Blood SPECIMEN COLLECTED A&P Assessment and plan (1) Acute hypoxemic respiratory failure: Most likely in setting of diastolic congestive heart failure because of missing dialysis sessions in setting of end-stage renal disease and hypertensive urgency. Resolved. Oxygen supplementation keeping saturation 90%. (2) CHF exacerbation: Last known EF of 59% grade 3 diastolic dysfunction, mild aortic valve stenosis with aortic valve area of 2.4. Repeat echocardiogram pending. Negative trend of cycle troponins Mostly in setting of hypertensive urgency because of end-stage renal disease and missed dialysis. Fluid restriction to less than 1500 cc. (3) (HFpEF) heart failure with preserved ejection fraction: As above. (4) Hypertension: Goal blood pressure less than 140/90 mmHg. Will monitor blood pressures and add antihypertensive as needed. (5) IDDM (insulin dependent diabetes mellitus): A1c of 7.3 Insulin sliding scale at low-dose protocol AC and at bedtime. Add Lantus 30 units every morning. Takes glargine 36 units daily and Humalog 15 units 3 times daily. (6) COPD (chronic obstructive pulmonary disease) with emphysema: Pulmicort twice daily, ipratropium, Xopenex every 6 hours. Hold off on steroids for now. Appreciate CT chest without contrast results. (7) Leukocytosis: Patient does have leukocytosis. History of UTI. Concern for mild left lower lobe pneumonia. Rule out C. difficile. MRSA swab negative, sputum culture pending, follow-up with blood culture. Continue with empiric IV Zosyn as per creatinine clearance, azithromycin. DC vancomycin. (8) ESRD (end stage renal disease): Appreciate nephrology recommendations. (9) Hyperkalemia: (10) Metabolic acidosis: (11) Missed dialysis: Plan CODE STATUS: Full code Diabetic renal dialysis diet Protonix for PUD prophylaxis Heparin 5000 every 12 hourly for DVT prophylaxis [facility] PDMP PDMP Reviewed: Not Reviewed Attestations Medical Necessity Statement*: Requires further hospitalization for management of respiratory failure in setting of fluid overload in a patient with end-stage renal disease on hemodialysis, missed dialysis sessions Diagnoses Acute hypoxemic respiratory failure J96.01 Acute on chronic combined systolic and diastolic congestive heart failure I50.43 Heart failure type: combined systolic and diastolic (HFpEF) heart failure with preserved ejection fraction I50.30 Renovascular hypertension I15.0 Hypertension type: renovascular hypertension IDDM (insulin dependent diabetes mellitus) Centrilobular emphysema J43.2 Emphysema type: centrilobular Leukocytosis D72.829 ESRD (end stage renal disease) N18.6 Hyperkalemia E87.5 Metabolic acidosis E87.20 Missed dialysis
[2025-02-01 17:16] LABS: Glucose Point of Care 294 mg/dL (70-110)
[2025-02-01] MEDS: azithromycin 250 mg Tablet 500 MG PO (17:18)
--- NOTE | 2025-02-01 17:45 | USCV_ITS ---
Mark Katz Age: 64 Gender: M : 1960 Exam Date: 01/31/2025 19:38 Ordering Phys: Ruy Oliveira MD Technologist: MURPHY Exam Location: [facility] [place] Indication: chf BP: 149 / 98 HR: 94 Rhythm: Sinus Technical Quality: Adequate MEASUREMENTS (Male / Female) Normal Values 2D ECHO LV Diastolic Diameter PLAX 4.0 cm 4.2 - 5.9 / 3.9 - 5.3 cm IVS Diastolic Thickness 0.9 cm 0.6 - 1.0 / 0.6 - 0.9 cm IVS Systolic Thickness 1.1 cm LVPW Diastolic Thickness 1.4 cm 0.6 - 1.0 / 0.6 - 0.9 cm LVPW Systolic Thickness 1.7 cm LVOT Diameter 2.0 cm LV Ejection Fraction 2D Teich 60.1 % LV Ejection Fraction MOD 4C 42.5 % LV Ejection Fraction MOD 2C 67.3 % LV Ejection Fraction 2C AL 69.4 % LA Diameter 4.2 cm Aorta at Sinotubular Diameter 2.6 cm IVC Diameter 1.8 cm M-MODE LA Ao Ratio MM 1.6 AV Cusp Separation MM 0.9 cm DOPPLER AV Peak Velocity 319.0 cm/s LVOT Peak Velocity 109.0 cm/s AV Area Cont Eq vti 1.2 cm squared AV Area Cont Eq pk 1.0 cm squared MV Peak Velocity 209.0 cm/s MV Area PHT 3.0 cm squared Mitral E to A Ratio 1.1 TV Peak Velocity 218.0 cm/s TR Peak Velocity 226.0 cm/s TR Peak Gradient 20.4 mmHg TV Peak E Velocity 44.0 cm/s PV Peak Velocity 156.0 cm/s FINDINGS Left Ventricle Left ventricle is normal in size. LV systolic function is normal with EF of 60-65%. No regional wall motion abnormalities are seen. Right Ventricle Normal in size and function Right Atrium Normal in size Left Atrium Dilated Mitral Valve Moderate mitral annular calcification. Moderate mitral stenosis with a mean gradient across mitral valve of 8.4 mmHg. Mild mitral regurgitation Aortic Valve Aortic valve is thickened. Moderate aortic stenosis with mean gradient of 23 mmHg and aortic valve area 1.24 cm squared. Tricuspid Valve Mild tricuspid regurgitation. Pulmonary artery systolic pressure is normal. Pulmonic Valve Not well visualized Pericardium Normal Aorta Normal in size IVC Appears to be normal CONCLUSIONS LV systolic function is normal with EF of 60-65% Left atrial dilation Moderate mitral stenosis Mild mitral regurgitation Moderate aortic stenosis Mild tricuspid regurgitation Compared to prior echocardiogram from 2022, aortic stenosis has progressed and is moderate now and moderate mitral stenosis is noted as well. Deion Chin MD (Electronically Signed) Final Date: 01 February 2025 16:47 S
[2025-02-01 20:04] LABS: Glucose Point of Care 343 mg/dL (70-110)
--- NOTE | 2025-02-01 23:07 | PC.NURSE ---
Patient allowed this nurse to wash back and buttocks only. refused other cares
[2025-02-02] VITALS (19 sets, daily range): BP systolic 112–145; BP diastolic 61–77; PULSE 66–96; RESP 12–25; TEMP 36.6–36.8; O2SAT 94–99
[2025-02-02] MEDS: pantoprazole 40 mg SDV IVP (01:29)
[2025-02-02] MEDS: levalbuterol 0.63 mg/3 mL Neb INHALATION ×2 (02:59→07:54)
[2025-02-02] MEDS: ipratropium 0.5 mg/2.5 mL Neb INHALATION ×2 (02:59→07:54)
[2025-02-02] MEDS: HYDROcodone-acetaminophen 10-325 mg Tablet 1 TAB PO ×2 (03:41→09:22)
[2025-02-02] MEDS: piperacillin-tazobactam 3.375 GM in sodium chloride 0.9% (plus) 50 ML IV (05:23)
[2025-02-02] MEDS: insulin glargine 100 units/1 mL 30 UNIT SUBCUT (05:24)
[2025-02-02 05:37] LABS: Basophils % 0.2 %; Eosinophils # 0.1 10^3/uL (0.0-0.8); Eosinophils % 0.6 %; Hematocrit 28.4 % (37-53); Lymphocytes % 19.4 %; Mean Corpuscular HGB Conc 31.7 g/dL (30-55); Mean Corpuscular Hemoglobin 33.7 pg (27-33); Mean Corpuscular Volume 106.4 fl (82-101); Mean Platelet Volume 12.1 fL (7.4-10.4); Monocytes # 0.9 10^3/uL (0.2-0.9); Neutrophils # 7.11 10^3/uL (1.8-7.7); Nucleated Red Blood Cells % 0 %; Platelet Count 129 10^3/cmm (157-399); Red Blood Count 2.67 10^6/uL (3.85-5.65); White Blood Count 10.15 10^3/uL (3.29-11.43)
[2025-02-02 05:59] LABS: Alanine Aminotransferase 28 U/L (0-41); Albumin Level 3.6 g/dL (3.5-5.2); Alkaline Phosphatase 73 U/L (40-130); Anion Gap 18.5 (5-19); Aspartate Amino Transferase 11 U/L (0-40); Blood Urea Nitrogen 39 mg/dL (8-23); Calcium 8.3 mg/dL (8.5-10.5); Carbon Dioxide 26 mmol/L (22-29); Chloride 100 mmol/L (98-107); Creatinine Clr Calc Pharmacy 20.2778; Globulin 2.6 g/dL (1.3-4.6); Glomerular Filtration Rate 14.3 mL/min (90-130); Glucose 251 mg/dL (65-115); Magnesium 2.2 mg/dL (1.7-2.3); Osmolality Calculated 308 mOsm/kg (285-295); Phosphorus 4.7 mg/dL (2.5-4.5); Potassium 4.5 mmol/L (3.5-5.1); Sodium 140 mmol/L (136-145); Total Bilirubin 0.4 mg/dL (0.15-1.2); Total Protein 6.2 g/dL (6.6-8.7)
[2025-02-02 06:00] LABS: Vancomycin Random 8.5 ug/mL (20.0-40.0)
[2025-02-02 07:23] LABS: Glucose Point of Care 211 mg/dL (70-110)
[2025-02-02] MEDS: heparin 5,000 unit/mL INJ 1 mL 5000 UNIT SUBCUT (08:08)
[2025-02-02] MEDS: insulin lispro 100 unit/1 mL SUBCUT (08:09)
[2025-02-02] MEDS: calcium acetate 667 mg Capsule 1334 MG PO (08:09)
[2025-02-02] MEDS: docusate sodium 100 mg Capsule PO (08:11)
--- NOTE | 2025-02-02 09:37 | P.DS_ITS ---
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 (3) (HFpEF) heart failure with preserved ejection fraction: Status: Acute (4) Hypertension: Status: Acute Qualifiers: Hypertension type: renovascular hypertension Qualified Code(s): I15.0 - Renovascular hypertension (5) IDDM (insulin dependent diabetes mellitus): Status: Acute (6) COPD (chronic obstructive pulmonary disease) with emphysema: Status: Acute Qualifiers: Emphysema type: centrilobular Qualified Code(s): J43.2 - Centrilobular emphysema (7) Leukocytosis: Status: Acute (8) ESRD (end stage renal disease): Status: Acute Permanent problem details: Central line January 2024 with dialysis x3 week (9) Hyperkalemia: Status: Acute (10) Metabolic acidosis: Status: Acute (11) Missed dialysis: Status: Acute Reason for Visit Reason for Visit: SOB Hospital Course Hospital Course Mark Katz is a 64 year old male with past medical history of end-stage renal disease on hemodialysis TTS, type 2 diabetes mellitus on insulin presents to the ER today because of difficulty in breathing. As per the patient and spouse at bedside he missed 2 sessions of dialysis last week because of pain in his arm. He presented to the ER on Friday when he was discharged on Solu-Medrol and doxycycline. Today he went back to dialysis center where they were able to dialyze him and had an ultrafiltrate of 1 L but he continued to have difficulty in breathing so they transferred him to ER. In the ER he required BiPAP ventilation. Currently is awake and alert saturating 99% on 35% FiO2 BiPAP. Denies any nausea, vomiting, headache, dizziness, fever, dysuria. States he has chronic diarrhea because of IBS. States he has been coughing without any expectoration. In the ER he was tachycardic, hypertensive for which he was given 10 of IV labetalol. Patient was admitted to the hospital further evaluation and management of respiratory failure in setting of congestive heart failure due to uncontrolled hypertension from missed dialysis in setting of end-stage renal disease on hemo dialysis. Telemetry nephrology was consulted and he was started on emergent dialysis. He responded well to the treatment. On admission there was a concern for sepsis which was ruled out. His cultures during hospitalization remained negative. He has been discharged in hemodynamically stable condition with advised to continue dialysis sessions as before. He will be discharged on oral Augmentin and Levaquin for 3 more days. Physical Exam Narrative: General: No acute distress, AO x3, on room air HEENT: PERRLA, pupils bilaterally equal and reactive Chest: Bilateral bronchial breath sounds over lung mcfarlane, course crackles present in left lower zone CVS: S1-S2 regular, no murmurs, no tachycardia, no gallops, no rubs Abdomen: Soft, nontender, no organomegaly, bowel sounds present Neuro: No focal deficits, no facial deformity, AO x3, power 5/5 in all limbs Discharge Data Studies Completed and Pending Completed Studies During Hospitalization Category Date Time Status CT chest wo con [id number] Stat Cat Scan 01/31/25 17:45 Completed XR chest 1V portable [id number] Stat Exams 01/31/25 15:36 Completed CV. echo complete* [id number] Routine Ultrasound 02/01/25 17:45 Completed Pending at discharge Category Date Time Status Blood Culture Stat Lab 01/31/25 17:53 Results C.Diff PCR (Lab) Routine Lab 01/31/25 19:26 Ordered Complete Blood Count w/Auto AM LABS Lab 02/03/25 04:00 Ordered Comprehensive Metabolic Panel AM LABS Lab 02/03/25 04:00 Ordered Lactoferrin Routine Lab 01/31/25 19:26 Ordered Magnesium AM LABS Lab 02/03/25 04:00 Ordered OVA and Parasites, Conc and PE Routine Lab 01/31/25 19:26 Ordered Phosphorus AM LABS Lab 02/03/25 04:00 Ordered Salmonella / Shigella / Campy Routine Lab 01/31/25 19:26 Ordered Sputum Culture and Gram Stain Stat Lab 01/31/25 17:45 Uncollected Urinalysis Stat Lab 01/31/25 17:55 Uncollected Vancomycin Random AM LABS Lab 02/03/25 04:00 Ordered Radiology Impressions Chest X-Ray 01/31/25 15:36 IMPRESSION: 1. Widespread interstitial and airspace infiltrates throughout both lungs most prevalent in the bilateral upper lobes. This most likely represents pneumonia however acute pulmonary edema might also be a consideration. Chest CT 01/31/25 17:45 IMPRESSION: 1. Moderate bilateral right greater than left pleural effusions. 2. Coronary artery and aortic atherosclerotic calcifications. 3. Cholecystectomy. 4. Perinephric edema bilaterally likely reflecting renal insufficiency. 5. Patchy bilateral airspace opacities suggestive of pneumonic infiltrates. Short-term 2 to three-week follow-up exam advised to assess for resolution. Echocardiogram: CONCLUSIONS LV systolic function is normal with EF of 60-65% Left atrial dilation Moderate mitral stenosis Mild mitral regurgitation Moderate aortic stenosis Mild tricuspid regurgitation Compared to prior echocardiogram from 2022, aortic stenosis has progressed and is moderate now and moderate mitral stenosis is noted as well. Deion Chin MD (Electronically Signed) Final Date: 01 February 2025 Laboratory Results WBC 10.15 10^3/uL (3.29-11.43) 02/02/25 04:44 RBC 2.67 10^6/uL (3.85-5.65) L 02/02/25 04:44 Hgb 9.00 g/dL (11.27-16.99) L 02/02/25 04:44 Hct 28.4 % (37-53) L 02/02/25 04:44 MCV 106.4 fl (82-101) H 02/02/25 04:44 MCH 33.7 pg (27-33) H 02/02/25 04:44 MCHC 31.7 g/dL (30-55) 02/02/25 04:44 RDW 13.0 % (12.1-15.1) 02/02/25 04:44 Plt Count 129 10^3/cmm (157-399) L 02/02/25 04:44 MPV 12.1 fL (7.4-10.4) H 02/02/25 04:44 Neut % (Auto) 70.0 % 02/02/25 04:44 Lymph % (Auto) 19.4 % 02/02/25 04:44 [place] % (Auto) 9.0 % 02/02/25 04:44 Eos % (Auto) 0.6 % 02/02/25 04:44 Baso % (Auto) 0.2 % 02/02/25 04:44 Neut # (Auto) 7.11 10^3/uL (1.8-7.7) 02/02/25 04:44 Lymph # (Auto) 2.0 10^3/uL (0.8-4.8) 02/02/25 04:44 [place] # (Auto) 0.9 10^3/uL (0.2-0.9) 02/02/25 04:44 Eos # (Auto) 0.1 10^3/uL (0.0-0.8) 02/02/25 04:44 Baso # (Auto) 0.0 10^3/uL (0.0-0.1) 02/02/25 04:44 Nucleated RBC % (auto) 0 % 02/02/25 04:44 Nucleated RBCs # 0.0 /100WBC 02/02/25 04:44 PT 14.00 SECONDS (12.1-14.9) 01/31/25 16:30 INR 1.01 (0.8-1.2) 01/31/25 16:30 Specimen Type Arterial 01/31/25 17:20 Sample Site Radial, left 01/31/25 17:20 ABG pH 7.33 (7.35-7.45) L 01/31/25 17:20 ABG pCO2 37.4 mmHg (35-45) 01/31/25 17:20 ABG pO2 95.2 mmHg (80.0-100.0) 01/31/25 17:20 ABG PO2/FiO2 Ratio 272 01/31/25 17:20 ABG HCO3 19.7 mmol/L (22-26) L 01/31/25 17:20 ABG O2 Saturation 98.1 01/31/25 17:20 ABG Base Excess -5.7 mmol/L (-2.0-2.0) L 01/31/25 17:20 Sp Test Pos 01/31/25 17:20 A-a O2 Gradient 14.0 mmHg (5-10) H 01/31/25 17:20 Hematocrit 33.5 % (42-52) L 01/31/25 17:20 Hgb O2 Saturation 97.4 % (95-100) 01/31/25 17:20 Carboxyhemoglobin 1.2 %THgb (0.4-20.1) 01/31/25 17:20 Methemoglobin < 0.0 % (0.4-1.5) L 01/31/25 17:20 Total Hemoglobin 10.9 g/dL (14-18) L 01/31/25 17:20 Sodium 138.0 mmol/L (131-143) 01/31/25 17:20 Potassium 6.0 mmol/L (3.5-5.0) H 01/31/25 17:20 Glucose 271.0 mg/dL (70-115) H 01/31/25 17:20 Ionized Calcium 1.1 mmol/L (1.1-1.4) 01/31/25 17:20 O2 Delivery Device Bipap 01/31/25 17:20 O2 Liters/Min 5.0 % 01/31/25 15:34 FiO2 35.0 % 01/31/25 17:20 Leather Production Machine Operator ID [place] 01/31/25 17:20 Sodium 140 mmol/L (136-145) 02/02/25 04:44 Potassium 4.5 mmol/L (3.5-5.1) 02/02/25 04:44 Chloride 100 mmol/L (98-107) 02/02/25 04:44 Carbon Dioxide 26 mmol/L (22-29) 02/02/25 04:44 Anion Gap 18.5 (5-19) 02/02/25 04:44 BUN 39 mg/dL (8-23) H 02/02/25 04:44 Creatinine 4.2 mg/dL (0.7-1.2) H 02/02/25 04:44 GFR Calculation 14.3 mL/min (90-130) L 02/02/25 04:44 Glucose 251 mg/dL (65-115) H 02/02/25 04:44 POC Glucose 211 mg/dL (70-110) H 02/02/25 07:21 Estimat Average Glucose 163 01/31/25 16:30 Hemoglobin A1c 7.3 % (4.0-6.0) H 01/31/25 16:30 Calculated Osmolality 308 mOsm/kg (285-295) H 02/02/25 04:44 Lactic Acid 2.2 mmol/L (0.5-2.2) 01/31/25 16:30 Lactic Acid (Sepsis) 1.7 mmol/L (0.5-2.2) 01/31/25 19:27 Calcium 8.3 mg/dL (8.5-10.5) L 02/02/25 04:44 Phosphorus 4.7 mg/dL (2.5-4.5) H 02/02/25 04:44 Magnesium 2.2 mg/dL (1.7-2.3) 02/02/25 04:44 Iron 32 ug/dL (59-158) L 01/31/25 16:30 TIBC 284 mcg/dl 01/31/25 16:30 % Saturation 11.2 % (20-50) L 01/31/25 16:30 Unsat Iron Binding 252 ug/dL (112-347) 01/31/25 16:30 Total Bilirubin 0.4 mg/dL (0.15-1.2) 02/02/25 04:44 AST 11 U/L (0-40) 02/02/25 04:44 ALT 28 U/L (0-41) 02/02/25 04:44 Alkaline Phosphatase 73 U/L (40-130) 02/02/25 04:44 Troponin T Baseline 159 ng/L (0-15) H* 01/31/25 16:30 Troponin T 120 Minute 152.4 ng/L (0-15) H 01/31/25 20:47 Delta Troponin T -6.6 ABS# (0-10) L 01/31/25 20:47 Troponin T Hi Sens 6Hr 151.2 ng/L (0-15) H 02/01/25 03:20 Troponin T Hi Sens 6Hr Delta -7.8 ng/L (0-12) L 02/01/25 03:20 NT-Pro-B Natriuret Pep 7054 pg/mL (0-125) H 01/31/25 16:30 Total Protein 6.2 g/dL (6.6-8.7) L 02/02/25 04:44 Albumin 3.6 g/dL (3.5-5.2) 02/02/25 04:44 Globulin 2.6 g/dL (1.3-4.6) 02/02/25 04:44 Triglycerides 99 mg/dL (0-150) 02/01/25 03:20 Cholesterol 107 mg/dL (0-200) 02/01/25 03:20 LDL Cholesterol, Calc 53 mg/dL (50-129) 02/01/25 03:20 HDL Cholesterol 34 mg/dL (60-100) L 02/01/25 03:20 LDL/HDL Ratio 1.56 RATIO (0.00-3.22) 02/01/25 03:20 Cholesterol/HDL Ratio 3.15 mg/dL (1.0-5.00) 02/01/25 03:20 Vitamin B12 658 pg/mL (232-1245) 01/31/25 16:30 Folate 8.6 ng/mL (4.5-32.2) 02/01/25 03:20 Procalcitonin 1.77 ng/mL (0-0.5) H 02/01/25 03:20 TSH 2.38 uIU/mL (0.27-4.20) 01/31/25 16:30 Nasal MRSA (PCR) Not detected (Negative) 02/01/25 10:02 Random Vancomycin 8.5 ug/mL (20.0-40.0) L 02/02/25 04:44 Hep Bs Antigen Non-reactive (Nonreactive) 01/31/25 16:30 Hep Bs Antibody 13.2 (11.5-1000) 01/31/25 16:30 Hepatitis C Antibody Non-reactive (Nonreactive) 01/31/25 16:30 Influenza A (PCR) Negative (Negative) 01/31/25 15:55 Influenza Type B (PCR) Negative (Negative) 01/31/25 15:55 RSV (PCR) Negative (Negative) 01/31/25 15:55 SARS-CoV-2 (PCR) Negative (Negative) 01/31/25 15:55 Vitals Last Vital Signs Temp 97.8 F 02/02/25 07:47 Pulse 80 02/02/25 07:56 Resp 16 02/02/25 07:56 BP 118/77 02/02/25 04:00 Pulse Ox 96 02/02/25 07:56 O2 Del Method Room Air 02/02/25 07:56 O2 Flow Rate 2 02/02/25 04:00 FiO2 35 01/31/25 22:00 Discharge Plan Discharge Patient Disposition: Home Condition: Stable Prescriptions: New levofloxacin 750 mg tablet 750 mg PO Q24H 3 Days Qty: 3 0RF amoxicillin-pot clavulanate 875-125 mg tablet 1 tab PO BID Qty: 6 0RF Continued calcium acetate 667 mg tablet 1,334 mg PO TID (DME) Diabetic shoes See Rx Instructions .ROUTE .MEDSUPPLY Qty: 1 0RF Rx Instructions: With 3 pairs of inserts (DME) blood-glucose meter Kit See Rx Instructions .Route Qty: 1 0RF Rx Instructions: As directed (DME) Blood Glucose Test Strip See Rx Instructions .Route Qty: 300 0RF Rx Instructions: As directed three times per day (DME) lancets Misc See Rx Instructions .Route Qty: 300 0RF Rx Instructions: As directed TID albuterol sulfate [Ventolin HFA] 90 mcg/actuation HFA aerosol inhaler 2 puff inhalation Q6H PRN (Reason: bronchospasm) Qty: 8.5 1RF loratadine [Claritin] 10 mg tablet 10 mg PO DAILY Qty: 90 1RF Toujeo SoloStar U-300 Insulin 300 unit/mL (1.5 mL) insulin pen 36 unit SUBCUT DAILY Qty: 4.5 5RF insulin lispro [Humalog KwikPen Insulin] 100 unit/mL insulin pen 15 unit SUBCUT TID Qty: 45 2RF sevelamer carbonate 800 mg tablet 1,600 mg PO TID RenaPlex-D 800 mcg-12.5 mg -2,000 unit tablet 1 tab PO DAILY oxycodone-acetaminophen 10-325 mg Tablet 1 tab PO Q4H PRN (Reason: chronic pain) Discharge Orders: Discharge Order (Routine); Ordered 02/02/25 Ordered By: Ruy Oliveira Referrals: [facility] [Outside] Cosmo Cazares MD [Primary Care Provider, [facility]] - 02/22/25 9:30 am Discharge Diet: Usual diet, Regular, Cardiac and Diabetic Discharge Activity: Resume usual activity and Increase activity as tolerated Patient Instructions: Amoxicillin/Clavulanate Potassium (By mouth) (Augmentin, Augmentin..., Levofloxacin (By mouth) (Levaquin, Levaquin Leva-altagracia), Pneumonitis (GEN), End Stage Kidney Disease (DC), Opioid Safety, Patient Portal & Ernestine Instructions Discharge Attestations Time Spent in Discharge Care*: greater than 30 min Specific Discharge Activities: educating patient, educating and/or supporting family/caregiver, discussing with pcp/other providers, discussing with leather case finisher/social workers/dc planners, documenting/other paperwork and evaluating patient/reviewing data Status at Discharge: Cognitive status at discharge: cognitively intact , Behavioral status at discharge: cooperative , Functional status at discharge: independent ambulation , Overall status at discharge: patient is back to baseline Quality Metrics Clinical Quality Measures [ No reported AMI, CVA or VTE this stay] Coding Level of Care Code 18329 Total time (in minutes) for Discharge: 65 Diagnoses Acute hypoxemic respiratory failure J96.01 Acute on chronic combined systolic and diastolic congestive heart failure I50.43 Heart failure type: combined systolic and diastolic (HFpEF) heart failure with preserved ejection fraction I50.30 Renovascular hypertension I15.0 Hypertension type: renovascular hypertension IDDM (insulin dependent diabetes mellitus) Centrilobular emphysema J43.2 Emphysema type: centrilobular Leukocytosis D72.829 ESRD (end stage renal disease) N18.6 Hyperkalemia E87.5 Metabolic acidosis E87.20 Missed dialysis
--- NOTE | 2025-02-02 11:15 | PC.NURSE ---
Patient was given all discharge instructions and prescriptions were sent to the pharmacy of choice. Patient's IV was discontinued. Patient is stable during discharge.
--- NOTE | 2025-02-02 11:23 | PC.SOCIAL ---
IMM Updated Updated pt on IMM. No questions voiced. Provided pt a copy. Initialed, dated, & timed a copy & placed in chart.
--- NOTE | 2025-02-02 21:45 | P.PN_ITS ---
Subjective 2 Subjective: no new c/o Medications: Reviewed: Yes Vitals/I&O/Wt Last Vital Signs Temp 97.8 F 02/02/25 07:47 Pulse 91 02/02/25 11:06 Resp 21 H 02/02/25 11:06 BP 112/64 02/02/25 11:06 Pulse Ox 95 02/02/25 11:06 O2 Del Method Room Air 02/02/25 09:00 O2 Flow Rate 2 02/02/25 04:00 FiO2 35 01/31/25 22:00 02/02/25 02/02/25 02/02/25 06:59 14:59 22:59 Intake Total 240 / 240 Output Total 300 / 3161 125 / 125 Balance -300 / -1441 115 / 115 Weight last 48 hrs Weight 108.012 kg Weight 108.5 kg Weight 108.494 kg Weight 112.2 kg Physical Exam 2 Narrative: Vital signs noted. Patient sitting up in bed, comfortable he is not using oxygen HEENT normocephalic atraumatic Neck has JVP Lungs crackles bilaterally. No longer wheezing. Heart positive S1-S2 tachycardic. Abdomen soft positive bowel sounds Patient has left upper extremity AV graft with thrill and bruit. Extremities bilateral edema improving. Neuro awake alert oriented x 3 moves. Interactive. Data 02/02/25 04:44 02/02/25 04:44 Micro: Microbiology 01/31/25 18:01 Blood Culture - Preliminary Blood NEGATIVE TO DATE 01/31/25 17:53 Blood Culture - Preliminary Blood NEGATIVE TO DATE A&P Assessment and plan (1) ESRD (end stage renal disease): 64-year-old gentleman obesity hypertension diabetes heart failure preserved EF, COPD, obstructive sleep apnea. The patient has ESRD is on hemodialysis thrice weekly for a year. The patient missed dialysis on Friday and . The patient was in the emergency room on Friday and given steroids. The patient went to dialysis today and had worsening pulmonary edema and shortness of breath and patient was sent to the emergency room 1. ESRD -the patient presented with severe volume overload and hyperkalemia. s/p HD friday plan to dc today 2. Pneumonia the patient is on vancomycin and azithromycin. Please monitor vancomycin levels. 4. Diabetic care per the hospitalist. 5. Anemia hemoglobin 9.5. Will monitor may need Epogen. Iron saturation of 11%, please check ferritin 6. Leukocytosis improving with antibiotics. 8. Mild hyperphosphatemia on PhosLo. The patient was seen examined using A/V equipment and the aid of a nurse. The patient consented to telehealth and to hemodialysis. Case discussed in detail with the patient, nurse Plan Pneumonia ESRD diabetes anemia. Plan as above PDMP PDMP Reviewed: Not Reviewed Attestations 2 Medical Necessity Statement*: per medicne Coding Level of Care Code Acute Code for [facility] Fwd Diagnoses ESRD (end stage renal disease) N18.6
== END 2025-02-02 11:12 | disposition home or self-care (01) | DRG 291 ==
LOC: ER 17:37 → ICU 17:51 → ER IP 18:23 → ICU 19:51
PROVIDERS: Internal Medicine Nephrology; Admitting Provider Student in an Organized Health Care Education/Training Program; Emergency Provider Emergency Medicine; PCP Family Medicine; Visit Provider Student in an Organized Health Care Education/Training Program
DX: I13.2 Hypertensive heart and chronic kidney disease with heart failure and with stage 5 chronic kidney disease, or end stage renal disease (principal); I50.43 Acute on chronic combined systolic (congestive) and diastolic (congestive) heart failure; J18.9 Pneumonia, unspecified organism; J96.01 Acute respiratory failure with hypoxia; N18.6 End stage renal disease; J44.0 Chronic obstructive pulmonary disease with (acute) lower respiratory infection; E87.20 Acidosis, unspecified; Z99.2 Dependence on renal dialysis; Z79.4 Long term (current) use of insulin; Z79.52 Long term (current) use of systemic steroids; G47.33 Obstructive sleep apnea (adult) (pediatric); K58.0 Irritable bowel syndrome with diarrhea; Z88.8 Allergy status to other drugs, medicaments and biological substances; E11.22 Type 2 diabetes mellitus with diabetic chronic kidney disease; E11.40 Type 2 diabetes mellitus with diabetic neuropathy, unspecified; F41.9 Anxiety disorder, unspecified; E87.5 Hyperkalemia; I15.0 Renovascular hypertension; J43.2 Centrilobular emphysema; D63.1 Anemia in chronic kidney disease; E83.39 Other disorders of phosphorus metabolism; Z91.158 Patient's noncompliance with renal dialysis for other reason
CPT/HCPCS: 36415; 36416; 36600; 71045; 71250; 80051; 80053; 80061; 80202; 82330; 82607; 82746; 82805; 82962; 83036; 83540; 83550; 83605; 83735; 83880; 84100; 84145; 84443; 84484; 85025; 85610; 86706; 86803; 87040; 87340; 87637; 90935; 93005; 93306; 94640; 94660; 96365; 96367; 96372; 96374; 96375; 96376; 99285; J0456; J1644; J1815; J2270; J2470; J2543; J2919; J3372; J3490; J7050; J7614; J7626; J7644; J9999; Q0144; Q3014

== ENCOUNTER → 2025-03-28 14:52 | Outpatient (BNVA) | payer MEDICARE, OTHER, SELFPAY | PROVIDERS: PCP Family Medicine; Visit Provider Podiatrist Foot & Ankle Surgery | DX: E11.21 Type 2 diabetes mellitus with diabetic nephropathy (principal); L60.3 Nail dystrophy; L85.9 Epidermal thickening, unspecified; E11.8 Type 2 diabetes mellitus with unspecified complications; I73.9 Peripheral vascular disease, unspecified; M21.41 Flat foot [pes planus] (acquired), right foot; M21.42 Flat foot [pes planus] (acquired), left foot; I89.0 Lymphedema, not elsewhere classified; L84 Corns and callosities; G62.89 Other specified polyneuropathies; Z79.4 Long term (current) use of insulin | CPT/HCPCS: 11056; 11721 ==

== ENCOUNTER → 2025-04-18 11:06 | Outpatient (BNVA) | payer MEDICARE, OTHER, SELFPAY | PROVIDERS: PCP Family Medicine; Visit Provider Dermatology | DX: I89.0 Lymphedema, not elsewhere classified (principal); L21.8 Other seborrheic dermatitis; L73.8 Other specified follicular disorders; L57.0 Actinic keratosis | CPT/HCPCS: 17000; 99204 ==

== ENCOUNTER → 2025-06-27 13:27 | Outpatient (BNVA) | payer MEDICARE, OTHER, SELFPAY | PROVIDERS: PCP Family Medicine; Visit Provider Podiatrist Foot & Ankle Surgery | DX: E11.21 Type 2 diabetes mellitus with diabetic nephropathy (principal); L60.3 Nail dystrophy; I73.9 Peripheral vascular disease, unspecified; I89.0 Lymphedema, not elsewhere classified; L60.1 Onycholysis; E11.8 Type 2 diabetes mellitus with unspecified complications; M21.41 Flat foot [pes planus] (acquired), right foot; M21.42 Flat foot [pes planus] (acquired), left foot; L84 Corns and callosities; G62.89 Other specified polyneuropathies; Z79.4 Long term (current) use of insulin | CPT/HCPCS: 11056; 11721; 99213 ==